=== PATIENT | male | born 1940 | race Caucasian/White ===

== ENCOUNTER 2019-12-19 07:48 | Outpatient (CLI) | payer MEDICARE, OTHER, SELFPAY ==
--- NOTE | 2019-12-19 08:13 | XR_ITS ---
WS: [id number] PROCEDURE: XR chest 2V* [id number] CLINICAL INFORMATION: CHRONIC BRONCHITIS/HYPERTENSION/HYPERLIPIDEMIA COMPARISON: June 15, 2018 FINDINGS: Heart: Normal cardiac silhouette. Sternotomy. Mediastinal clips. Tortuous thoracic aorta. Lungs: Moderate chronic emphysematous changes. Slight subsegmental atelectasis left lower lobe. No fo carlos pneumonia. Bones: Osteopenia. XR/XR chest 2V* [id number] IMPRESSION: 1. Moderate chronic emphysematous changes. Subsegmental atelectasis left lower lobe. 2. Sternotomy with mediastinal clips. 3. No acute chest findings.
== END 2019-12-19 07:49 | disposition home or self-care (01) ==
LOC: RAD 07:55
PROVIDERS: PCP Electrodiagnostic Medicine; Visit Provider Electrodiagnostic Medicine
DX: J42 Unspecified chronic bronchitis (principal); E11.51 Type 2 diabetes mellitus with diabetic peripheral angiopathy without gangrene; I10 Essential (primary) hypertension; E78.5 Hyperlipidemia, unspecified; J98.11 Atelectasis
CPT/HCPCS: 71046

== ENCOUNTER → 2022-12-22 11:28 | Outpatient (BNVA) | payer OTHER, SELFPAY | PROVIDERS: PCP Electrodiagnostic Medicine; Visit Provider Nurse Practitioner Family | DX: R05.9 Cough, unspecified (principal) | CPT/HCPCS: 87400 ==

== ENCOUNTER 2023-03-22 09:26 | Emergency (ER) | payer MEDICARE, OTHER, SELFPAY ==
[2023-03-22 09:46] VITALS: BP 156/82; PULSE 98; RESP 12; TEMP 36.4; O2SAT 95; BMI 23.6
[2023-03-22 10:08] VITALS: BP 117/76; PULSE 90; RESP 18; O2SAT 94
--- NOTE | 2023-03-22 10:49 | XRR_ITS ---
PROCEDURE INFORMATION: Exam: XR Ribs Exam date and time: 03/22/2023 11:03 AM Age: 83 years old Clinical indication: Chest wall pain and painful respiration; Right; Patient HX: RT anterior chest/rib pain post fall TECHNIQUE: Imaging protocol: Radiologic exam of the of the ribs. Views: 3 views. Bilateral ribs. COMPARISON: CR XR chest 2V* [id number] 12/19/2019 8:17 AM FINDINGS: Bones/joints: No fracture or malalignment. Soft tissues: No displaced rib fractures. XR/XR ribs BI 3V* [id number] IMPRESSION: No acute findings.
--- NOTE | 2023-03-22 10:49 | XRR_ITS ---
PROCEDURE INFORMATION: Exam: XR Right Hip Exam date and time: 03/22/2023 10:52 AM Age: 83 years old Clinical indication: Injury or trauma; Other: RT hip pain post fall; Patient HX: RT shoulder pain post fall; Additional info: RT shoulder sind. Pain post fall TECHNIQUE: Imaging protocol: Radiologic exam of the right hip. Views: 1 view hip with pelvis when performed. COMPARISON: CR XR sacrum coccyx min 2V [id number] 04/18/2022 8:01 AM FINDINGS: Bones/joints: No fracture or dislocation. Moderate right hip degenerative changes. Soft tissues: No acute findings. XR/XR hip RT 2-3V wo/w pel* [id number] IMPRESSION: Moderate right hip degenerative changes. No fracture.
--- NOTE | 2023-03-22 11:52 | PC.PHAR ---
pt states he takes care of his own medications-pt states he uses lantus solostar 50 units in the am and 5 units hs-pt states [facility] are both out of trulicity 1.5mg pt states he has one pen left and was trying to save it-
[2023-03-22 12:11] VITALS: BP 128/69; PULSE 84; RESP 18; O2SAT 97
[2023-03-22 13:22] VITALS: BP 121/70; PULSE 78; O2SAT 97
--- NOTE | 2023-03-22 14:08 | W.ED.FALL ---
HPI - Fall General: Chief Complaint: Fall Stated Complaint: abd pains Time Seen by Provider: 03/22/23 10:05 History of Present Illness: This patient is an 83-year-old white male who presents to the emergency department complaining of pain over the lateral aspect of the right hip and some mild pain to the right rib cage. Patient states he was at a bowling tournament in [facility] last night. He tripped over a step while he was there. States he was able to finish bowling after the accident. He did strike his head but did not lose consciousness. He is not on any blood thinners. No headache or neck pain. Review of Systems General: Reports: 10 or more systems reviewed and unremarkable except in HPI and below PFSH ED PFSH: Medical History Myocardial infarction ASHD (arteriosclerotic heart disease) HTN (hypertension) Surgical History S/P CABG (coronary artery bypass graft) Family History Father Diabetes Other CAD (coronary artery disease) Social History Smoking and tobacco/nicotine status: never used tobacco/nicotine Alcohol intake: never Substance/Drug Use: never Household members: spouse Marital status: Current occupational status: retired Physical Exam Const: COMMON NORMALS: no acute distress, patient oriented x3 and no limitations GENERAL APPEARANCE: cooperative and comfortable HENMT: COMMON NORMALS: normocephalic, atraumatic, Normal nasal mucous membranes and turbinates present, moist oral mucous membranes and oropharynx normal HEAD & SCALP: normal to inspection, normocephalic and atraumatic FACE & SINUS: normal facial exam NOSE: Normal nasal mucous membranes and turbinates present Eye: COMMON NORMALS: Equal, round and reactive pupils present, EOMs intact bilaterally and conjunctivae normal GENERAL EYE: appearance normal, both eyes and all related structures CONJUNCTIVA: Yes conjunctivae normal PUPIL: Yes Equal, round and reactive pupils present Neck/C-Spine: COMMON NORMALS: supple and no JVD Chest: CHEST: Yes tenderness (Right lower lateral) Resp: COMMON NORMALS: normal respiratory effort and clear to auscultation bilaterally AUSCULTATION: clear to auscultation bilaterally Cardio: COMMON NORMALS: no JVD, regular rate, regular rhythm, No gallops present (Cardio), No murmurs present (Cardio) and No rub (Cardio) RATE: regular rate RHYTHM: regular rhythm GI: COMMON NORMALS: Normal to inspection, nondistended, normoactive bowel sounds present, Soft to palpation and non-tender AUSCULTATION: Yes normoactive bowel sounds PALPATION: Yes Soft to palpation : COMMON NORMALS: Yes no CVA tenderness BLADDER/KIDNEY EXAM: Yes no CVA tenderness Back/Pelvis: COMMON NORMALS: no CVA tenderness and thoracic and lumbar spine normal to inspection Extremity: NARRATIVE EXTREMITY EXAM: Full range of motion of the right hip with no significant discomfort. Some tenderness to palpation over the right greater trochanter. Neuro: COMMON NORMALS: patient oriented x3 and CN's II-XII intact bilaterally Psych: COMMON NORMALS: mental status grossly normal, Normal thought process present and cooperative THOUGHT PROCESS: Normal thought process present Skin: COMMON NORMALS: no rashes or lesions noted, turgor normal and no jaundice GENERAL SKIN EXAM: no rashes or lesions noted and turgor normal Course Vital Signs: Vital signs: Vital Signs Temperature 97.6 F 03/22/23 09:46 Pulse Rate 78 03/22/23 13:22 Respiratory Rate 18 03/22/23 12:11 Blood Pressure 121/70 03/22/23 13:22 Pulse Oximetry 97 03/22/23 13:22 Oxygen Delivery Me thod Room Air 03/22/23 12:11 MDM - Fall Medical Decision Making X-rays of the right hip were read by the radiologist as normal. The chest x-ray and rib films were also read by the radiologist as normal. Patient states ibuprofen has been sufficient for handling his pain. Recommended he continue that. Follow-up with his primary care physician as needed. Was discharged in stable condition. Lab Data Radiology Impressions Hip/Pelvis X-Ray 03/22/23 10:49 IMPRESSION: Moderate right hip degenerative changes. No fracture. Ribs X-Ray 03/22/23 10:49 IMPRESSION: No acute findings. All radiology interpretation(s) finalized by discharge Discharge Plan Discharge Patient Disposition: Home Clinical Impression: Contusion of hip and thigh Qualifiers: Encounter type: initial encounter Laterality: right Qualified Code(s): S70.01XA - Contusion of right hip, initial encounter Condition: Stable Prescriptions: No Action atorvastatin 40 mg tablet 40 mg PO QAM tamsulosin 0.4 mg capsule 0.4 mg PO QAM multivitamin Tablet 1 tab PO QAM Aspir-81 81 mg Tablet,Delayed Release (Dr/Ec) 81 mg PO QAM Lantus Solostar U-100 Insulin 100 unit/mL (3 mL) insulin pen See Rx Instructions .ROUTE .COMPLEX Rx Instructions: 50 units subcutaneously in the am and 5 units at bedtime Trulicity 1.5 mg/0.5 mL Pen Injector 1.5 mg SUBCUT Q7D Rx Instructions: on lisinopril 20 mg tablet 20 mg PO QAM Discharge Orders: Discharge ED (Routine); Ordered 03/22/23 Ordered By: Jean Carlos Nixon Referrals: Fran Monroe DO [Primary Care Provider] - 1 week Patient Instructions: Pain Management Coding Level of Care Code ED Shop Repairer for Man Freire
== END 2023-03-22 13:22 | disposition home or self-care (01) ==
PROVIDERS: Emergency Provider Emergency Medicine; PCP Electrodiagnostic Medicine
DX: S70.01XA Contusion of right hip, initial encounter (principal); Z79.82 Long term (current) use of aspirin; Z79.85 Long-term (current) use of injectable non-insulin antidiabetic drugs; Z79.4 Long term (current) use of insulin; I25.2 Old myocardial infarction; I10 Essential (primary) hypertension; Z95.1 Presence of aortocoronary bypass graft; W22.8XXA Striking against or struck by other objects, initial encounter
CPT/HCPCS: 71110; 73502; 99284

== ENCOUNTER 2023-08-03 08:52 | Outpatient (RCR) | payer MEDICARE, OTHER, SELFPAY | END 2023-08-09 23:59 | disposition home or self-care (01) | LOC: SPT 08:52 | PROVIDERS: PCP Electrodiagnostic Medicine; Visit Provider Electrodiagnostic Medicine | DX: M54.50 Low back pain, unspecified (principal) | CPT/HCPCS: 97110; 97161; 97530 ==

== ENCOUNTER 2023-08-06 09:03 | Emergency (ER) | payer MEDICARE, OTHER, SELFPAY ==
[2023-08-06 09:09] VITALS: BP 183/127; PULSE 91; RESP 16; TEMP 36.4; O2SAT 97; BMI 25.3
--- NOTE | 2023-08-06 09:12 | CT_ITS ---
WS: [id number] CT HEAD TECHNIQUE: Noncontrast CT of the head obtained from the skullbase to the vertex. CLINICAL INFORMATION: trauma COMPARISON: 2019 DLP: 1037.[address] scans at [facility] use at least one of these dose optimization techniques: automated e xposure control; mA and/or kV adjustment per patient size (includes targeted exams where dose is matc hed to clinical indication); or iterative reconstruction. FINDINGS: No evidence of intracranial hemorrhage or mass effect. Ventricular system and basal cisterns are lopez nt. Moderate small vessel changes with moderate parenchymal volume loss. A few tiny chronic lacunar i nfarcts RIGHT basal ganglia. Incidental RIGHT middle cranial fossa arachnoid cyst unchanged. This elin sures approximately 2.5 x 2.5 cm. Partially visualized paranasal sinuses are well aerated. Mastoid air cells are well aerated. RIGHT fr ontal scalp laceration. CT/CT head wo con* [id number] IMPRESSION: 1. No evidence of intracranial hemorrhage or mass effect. 2. Moderate small vessel changes. Moderate parenchymal volume 3. Incidental arachnoid cyst RIGHT middle cranial fossa unchanged. 4. RIGHT frontal scalp laceration. No visualized calvarial fracture. 5. Vascular calcification. 6. No acute intracranial findings.
--- NOTE | 2023-08-06 09:12 | XR_ITS ---
WS: [id number] Exam: XR cervical spine 3V* [id number] Date/Time of Exam: 08/06/2023 9:23 AM Reason For Exam: trauma No obvious fracture identified. The lower endplate of C7 is obscured. Degenerative disc changes from C5-C7 and spondylosis. Straightening and reversal of the normal cervical C curve. The odontoid is int act. Paraspinal soft tissues are unremarkable. Bilateral carotid artery calcifications. XR/XR cervical spine 3V* [id number] IMPRESSION: 1. No acute fracture or malalignment. Nonvisualization of the lower endplate of C7. 2. Moderate degenerative changes from C5-C7 as above.
[2023-08-06] MEDS: ceFAZolin 1,000 MG in sodium chloride 0.9% (plus) 50 ML 100 MG IV (09:30)
--- NOTE | 2023-08-06 09:38 | XR_ITS ---
WS: [id number] Exam: XR knee LT 3V* [id number] Date/Time of Exam: 08/06/2023 9:38 AM Reason For Exam: trauma No fracture or dislocation. Mild tricompartmental DJD. No joint effusion. XR/XR knee LT 3V* [id number] IMPRESSION: 1. Mild tricompartmental DJD. No other significant finding.
--- NOTE | 2023-08-06 09:39 | ED_ITS ---
HPI - Wound/Laceration 2 General: Chief Complaint: Wound/Laceration Stated Complaint: fall, head wound Time Seen by Provider: 08/06/23 09:05 Source: patient Mode of arrival: ambulatory History of Present Illness: 83-year-old male presents emergency room with laceration on the scalp. Patient went out to feed his cats evidently the neighbors dog came over he had a mechanical ground-level fall while on the porch he hit his head on the railing of the porch as he went down. There was no loss consciousness he is not on anticoagulants he denies neck pain he is a little bit of left knee pain is abrasion on his left knee he has a very large scalp laceration on the left side of his head. He denies any other injury was ambulatory after the incident without loss of consciousness. Associated symptoms: Denies chills or fever(s) Review of Systems 2 Const: Denies: fever(s) or chills Card: Denies: chest pain Resp: Denies: dyspnea GI: Denies: abdominal pain : Denies: dysuria, urinary frequency or urinary urgency Musc: Denies: neck pain or back pain Skin/Breast: Denies: rash PFSH ED 2 PFSH: Medical History Myocardial infarction ASHD (arteriosclerotic heart disease) HTN (hypertension) Surgical History S/P CABG (coronary artery bypass graft) Family History Father Diabetes Other CAD (coronary artery disease) Social History Smoking and tobacco/nicotine status: never used tobacco/nicotine Alcohol intake: never Substance/Drug Use: never Household members: spouse Marital status: Current occupational status: retired Physical Exam 2 Const: GENERAL APPEARANCE: cooperative ORIENTATION/CONSCIOUSNESS: Yes awake, Yes oriented to person, Yes oriented to place and Yes oriented to time HENMT: COMMON NORMALS: normocephalic, atraumatic and hearing grossly normal bilaterally HEAD & SCALP: normocephalic and atraumatic FACE & SINUS IMAGES: 1. 12 cm full-thickness laceration EAR IMAGES: 1. Partial-thickness laceration Resp: COMMON NORMALS: normal respiratory effort, No retractions, No use of accessory muscles and clear to auscultation bilaterally AUSCULTATION: clear to auscultation bilaterally Cardio: COMMON NORMALS: regular rate, regular rhythm and No murmurs present (Cardio) RATE: regular rate RHYTHM: regular rhythm GI: COMMON NORMALS: Soft to palpation and No hepatosplenomegaly present A USCULTATION: Yes normoactive bowel sounds PALPATION: Yes Soft to palpation, No Tenderness to palpation present (GI), No Guarding due to palpation present (GI) and Yes No hepatosplenomegaly present Extremity: COMMON NORMALS: normal to inspection, capillary refill normal, no clubbing, cyanosis or edema, no calf tenderness and no pedal edema Neuro: SENSORIUM/ORIENTATION: Yes oriented to person, Yes oriented to place and Yes oriented to time Skin: COMMON NORMALS: no rashes or lesions noted GENERAL SKIN EXAM: no rashes or lesions noted Procedures Laceration Laceration 1: Site: scalp Size (cm): 12 Description: linear Local Anesthetic: lidocaine 1% and with epi Amount of anesthesia used (mL): 6 Pre-repair: wound explored and irrigated extensively Skin layer closed with: nylon Size (cm): 3-0 Number of sutures: 1 Technique: running Laceration 2: Site: other (R ear - outer helix) Side (If applicable): right Size (cm): 2.5 Description: linear and clean Skin layer closed with: other (Steri-Strips) Course 2 Vital Signs: Vital signs: Vital Signs Temperature 97.5 F L 08/06/23 09:09 Pulse Rate 96 08/06/23 11:27 Respiratory Rate 16 08/06/23 09:09 Blood Pressure 148/78 08/06/23 11:27 Pulse Oximetry 98 08/06/23 11:27 Oxygen Delivery Me thod Room Air 08/06/23 09:09 MDM - Wound/Laceration Medical Decision Making Labs and imaging reviewed no acute findings. Sutures close of the above the ear laceration was only partial-thickness was Steri-Stripped. The scalp laceration was 12 cm in length after anesthesia locally was closed with a running locking suture with 3-0 nylon patient had good anesthesia good cosmesis approximation of tissue and hemostasis. Wound care instructions given sutures removed in primary care office in 5 to 7 days. Lab Data Radiology Impressions Cervical Spine X-Ray 08/06/23 09:12 IMPRESSION: 1. No acute fracture or malalignment. Nonvisualization of the lower endplate of C7. 2. Moderate degenerative changes from C5-C7 as above. Head CT 08/06/23 09:12 IMPRESSION: 1. No evidence of intracranial hemorrhage or mass effect. 2. Moderate small vessel changes. Moderate parenchymal volume 3. Incidental arachnoid cyst RIGHT middle cranial fossa unchanged. 4. RIGHT frontal scalp laceration. No visualized calvarial fracture. 5. Vascular calcification. 6. No acute intracranial findings. Knee X-Ray 08/06/23 09:38 IMPRESSION: 1. Mild tricompartmental DJD. No other significant finding. All radiology interpretation(s) finalized by discharge Discharge Plan Discharge Patient Disposition: Home Clinical Impression: Laceration of head, Fall, Laceration of auricle of right ear Condition: Stable Prescriptions: New cephalexin 750 mg capsule 750 mg PO BID 5 Days Qty: 10 0RF No Action atorvastatin 40 mg tablet 40 mg PO QAM tamsulosin 0.4 mg capsule 0.4 mg PO QAM multivitamin Tablet 1 tab PO QAM Aspir-81 81 mg Tablet,Delayed Release (Dr/Ec) 81 mg PO QAM Lantus Solostar U-100 Insulin 100 unit/mL (3 mL) insulin pen See Rx Instructions .ROUTE .COMPLEX Rx Instructions: 50 units subcutaneously in the am and 5 units at bedtime Trulicity 1.5 mg/0.5 mL Pen Injector 1.5 mg SUBCUT Q7D Rx Instructions: on lisinopril 20 mg tablet 20 mg PO QAM Discharge Orders: Discharge ED (Routine); Ordered 08/06/23 Ordered By: Ron Mckeon Referrals: Fran Monroe DO [Primary Care Provider] - Discharge Diet: Usual diet Discharge Activity: Increase activity as tolerated Patient Instructions: Scalp Laceration, Opioid Safety, Pain Management Activity Restrictions/Additional Instructions: Thank you for choosing [facility] for your healthcare needs today. It is very important that you follow up as instructed or that you return to the Emergency Department should you have concerns or if your condition changes or worsens in any way. You were seen today for a fall. CT and x-rays did not show any acute abnormalities. Due to the large laceration on your scalp which was closed with sutures and a small laceration on your right ear which was closed with Steri- Strips Steri-Strips will fall off on their own over the next several days. The laceration in the scalp was closed with sutures which need to be removed in approximately 7 days. Apply topical [id number] Vaseline-based antibiotic ointment to the scalp laceration once daily. You are given antibiotics take 1 pill twice a day for 5 days. Coding Level of Care Code ED Lastex Operator for Man Freire
--- NOTE | 2023-08-06 09:59 | PC.NURSE ---
this nurse cleaned pts laceration with sterile water irrigation. no foreign objects/debris noted to wound/ small laceration noted to R ear, bleeding controlled at this time.
[2023-08-06] MEDS: tetanus-dipt-pertussis 0.5 mL SDV IM (10:38)
[2023-08-06 11:27] VITALS: BP 148/78; PULSE 96; O2SAT 98
== END 2023-08-06 11:28 | disposition home or self-care (01) ==
PROVIDERS: Emergency Provider Family Medicine; PCP Electrodiagnostic Medicine
DX: S01.01XA Laceration without foreign body of scalp, initial encounter (principal); S01.311A Laceration without foreign body of right ear, initial encounter; Z79.82 Long term (current) use of aspirin; Z79.4 Long term (current) use of insulin; Z79.85 Long-term (current) use of injectable non-insulin antidiabetic drugs; I25.2 Old myocardial infarction; I10 Essential (primary) hypertension; W18.39XA Other fall on same level, initial encounter; Z23 Encounter for immunization
CPT/HCPCS: 12004; 70450; 72040; 73562; 90715; 96365; 99285; J0690

== ENCOUNTER 2023-08-10 06:00 | Outpatient (RCR) | payer MEDICARE, OTHER, SELFPAY | END 2023-09-09 23:59 | disposition home or self-care (01) | LOC: SPT 06:00 | PROVIDERS: PCP Electrodiagnostic Medicine; Visit Provider Electrodiagnostic Medicine | DX: M54.50 Low back pain, unspecified (principal) | CPT/HCPCS: 97110; 97530 ==

== ENCOUNTER → 2023-10-15 09:10 | Outpatient (BNVA) | payer MEDICARE, OTHER, SELFPAY | PROVIDERS: PCP Electrodiagnostic Medicine; Visit Provider Internal Medicine | DX: I49.9 Cardiac arrhythmia, unspecified (principal); I10 Essential (primary) hypertension; I47.19 Other supraventricular tachycardia; I49.1 Atrial premature depolarization; I49.3 Ventricular premature depolarization | CPT/HCPCS: 93242 ==

== ENCOUNTER → 2023-12-17 14:14 | Outpatient (BNVA) | payer MEDICARE, OTHER, SELFPAY | PROVIDERS: PCP Electrodiagnostic Medicine; Referring Provider Electrodiagnostic Medicine; Visit Provider Internal Medicine Cardiovascular Disease | DX: I25.10 Atherosclerotic heart disease of native coronary artery without angina pectoris (principal); I10 Essential (primary) hypertension; I77.9 Disorder of arteries and arterioles, unspecified; I47.20 Ventricular tachycardia, unspecified; I87.2 Venous insufficiency (chronic) (peripheral) | CPT/HCPCS: 99204 ==

== ENCOUNTER 2024-01-25 07:17 | Outpatient (CLI) | payer MEDICARE, OTHER, SELFPAY ==
--- NOTE | 2024-01-25 | ECG_ITS ---
[facility] Test Date: 2024-01-25 Pat Name: Pedro Pablo Berg Department: Room: Gender: Male Restoration Officer: : 1940 Requested By: Luke Evangelista Order Number: [id number] Storm MD: LUKE EVANGELISTA Interpretive Statements Lung unchanged pre/post procedure; Intraprocedure shortess of breath; Symptoms resoled by discharge NOTE: Please note that this is the electrocardiogram portion of the Lexiscan/Sestamibi stress test. The perfusion scan will be documented separately. DATA: Baseline heart rate was 63 beats per minute. Baseline blood pressure was 160/80 millimeters of mercury. Target heart rate was 135. Maximum heart rate achieved was 98. which was 72% of the predicted target heart rate. Maximum blood pressure was 161/86 millimeters of mercury. The reason for ending the test was completion of the protocol . The patient intra-procedure shortness of breath which was resolved at the time of discharge ELECTROCARDIOGRAM: BASELINE: Sinus rhythm. Normal axis. Otherwise, no ST-T changes suggestive of ischemia noted. No arrhythmia noted. After Lexiscan injection, significant inferolateral ST-T changes suggestive of ischemic noted. No arrhythmia noted. 1. EKG is suggestive of ischemia 2. Lexiscan injection unremarkable. 3. Perfusion scan will be documented separately. Electronically Signed On 02-19-2024 13:35:43 ATTENDANT HONOR BAR by LUKE EVANGELISTA [email or web address]
[2024-01-25 07:56] VITALS: BMI 25.3
--- NOTE | 2024-01-25 08:00 | NMCV_ITS ---
NM soledad perf SPECT r/s* [id number] Pedro Pablo Berg Age: 83 Gender: M : 1940 Exam Date: 01/25/2024 08:57 Ordering Phys: Luke Evangelista MD ([email or web address]) Technologist: ELVIA Meléndez Exam Location: [facility] Indications: cp STRESS TEST [facility] IMAGE PROTOCOL Rest/Stress 1 Lexiscan Day Radiopharmaceutical Dose (mCi) Administration Site Administered by Rest: Tc-99m 10.9 IV Tari Mack BUSINESS CONTINUITY GLOBAL DIRECTOR Sestamibi Stress:Tc-99m 32.5 IV Tari Mack, BUSINESS CONTINUITY GLOBAL DIRECTOR Sestamibi Rest: 25-Jan-2024 60 Discovery 630 Stress: 25-Jan-2024 30 Discovery 630 0.4mg Lexiscan. Supine position only as patient was unable to lay prone. SPECT RESULTS Technical Quality: Good Raw Data Analysis: Normal Image Corrections: No attenuation or motion correction applied Summed Stress Score: 0 Summed Rest Score: 0 Summed Difference Score: 0 PERFUSION FINDINGS SPECT images demonstrate homogeneous tracer distribution throughout the myocardium. FUNCTIONAL RESULTS (calculated via Gated SPECT) Stress Image LV EF (%): 74 Stress EDV (mL):98 TID: 1.33 Stress ESV (mL):25 FUNCTIONAL FINDINGS: There is normal left ventricular systolic function. IMPRESSIONS 1. Normal myocardial perfusion imaging with no evidence of ischemia 2. LV systolic function is normal Christopher Meza MD (Electronically Signed) Final Date: 25 January 2024 20:30 S
[2024-01-25] MEDS: regadenoson 0.4 Mg/5 ml Syringe IVP (09:22)
[2024-01-25 09:38] VITALS: BP 160/66; PULSE 82
--- NOTE | 2024-01-25 10:33 | USCV_ITS ---
Pedro Pablo Berg Age: 83 Gender: M : 1940 Exam Date: 01/25/2024 10:39 Ordering Phys: Luke Evangelista MD ([email or web address]) Technologist: [place] [facility] [place]ication: sob BP: 146 / 78 HR: 64 Rhythm: Sinus Technical Quality: Adequate MEASUREMENTS (Male / Female) Normal Values 2D ECHO LVOT Diameter 2.2 cm LV Ejection Fraction MOD 4C 50.2 % LV Ejection Fraction MOD 2C 66.5 % LV Ejection Fraction 2C AL 66.6 % LA Diameter 3.6 cm RA Systolic Volume 4C AL 67.0 ml RA Systolic Volume 4C MOD 63.7 ml LA Sys Volume AL 54.7 cm cubed LA Sys Volume Index AL 25.7 cm cubed/m squared Aorta at Sinotubular Diameter 2.8 cm M-MODE LA Ao Ratio MM 1.3 AV Cusp Separation MM 2.2 cm DOPPLER AV Peak Velocity 133.0 cm/s LVOT Peak Velocity 97.0 cm/s AV Area Cont Eq vti 2.9 cm squared AV Area Cont Eq pk 2.7 cm squared MV Peak Velocity 95.0 cm/s MV Area PHT 2.4 cm squared Mitral E to A Ratio 0.8 TV Peak Velocity 191.5 cm/s TR Peak Velocity 227.0 cm/s TR Peak Gradient 20.6 mmHg TV Peak E Velocity 85.0 cm/s PV Peak Velocity 134.5 cm/s FINDINGS Left Ventricle Normal left ventricular size, systolic function and wall thickness, with no regional wall motion abnormalities. Left ventricular ejection fraction is estimated at 55 %. Grade I/IV diastolic dysfunction (abnormal relaxation filling pattern), normal to mildly elevated filling pressures. Right Ventricle The right ventricle is normal in size and function. Right Atrium The right atrium is normal in size. Left Atrium Moderately increased left atrial size. Mitral Valve Thickened mitral valve. No mitral valve stenosis. Moderate mitral valve regurgitation. Aortic Valve Moderate aortic valve calcification. No aortic valve stenosis. Trace aortic valve regurgitation. Tricuspid Valve Trace tricuspid valve regurgitation. Pulmonic Valve Structurally normal pulmonic valve without significant stenosis. There is no pulmonic regurgitation. Pericardium Normal pericardium without effusion. Aorta Normal ascending aorta dimension. IVC The inferior vena cava appears normal. CONCLUSIONS Normal left ventricular size, systolic function and wall thickness, with no regional wall motion abnormalities. Left ventricular ejection fraction is estimated at 55 %. Grade I/IV diastolic dysfunction (abnormal relaxation filling pattern), normal to mildly elevated filling pressures. Moderately increased left atrial size. Moderate aortic valve calcification. No aortic valve stenosis. Trace aortic valve regurgitation. There is no pericardial effusion. Right atrial pressure is around 5 mm of mercury. Luke Evangelista MD (Electronically Signed) Final Date: 25 January 2024 21:52 S
== END 2024-01-25 07:18 | disposition home or self-care (01) ==
LOC: CDL 07:19
PROVIDERS: PCP Electrodiagnostic Medicine; Visit Provider Internal Medicine Cardiovascular Disease
DX: I50.30 Unspecified diastolic (congestive) heart failure (principal); R07.9 Chest pain, unspecified; R06.02 Shortness of breath; I51.7 Cardiomegaly; I35.0 Nonrheumatic aortic (valve) stenosis
CPT/HCPCS: 36415; 78452; 93017; 93306; 96374; A9500; J2785

== ENCOUNTER 2024-05-12 10:18 | Emergency (ER) | payer MEDICARE, OTHER, SELFPAY ==
[2024-05-12] VITALS (8 sets, daily range): BP systolic 115–151; BP diastolic 69–82; PULSE 88–104; RESP 18–22; TEMP 37.6; O2SAT 90–94; BMI 25.3
--- NOTE | 2024-05-12 10:26 | ECG_ITS ---
[email or web address] Test Date: 2024-05-12 Pat Name: Pedro Pablo Berg Department: Room: Gender: Male Immigration Manager: : 1940 Requested By: Jarad Sanchez Order Number: [id number] Storm MD: Christopher Meza M.D. Measurements Intervals [place] Rate: 101 P: 13 RI: 189 QRS: -5 QRSD: 88 T: 35 QT: 320 QTc: 416 Interpretive Statements SINUS TACHYCARDIA NONSPECIFIC ST & T-WAVE ABNORMALITY ABNORMAL RHYTHM ECG Compared to ECG 06/15/2018 09:53:54 Sinus rhythm no longer present T-wave abnormality still present Electronically Signed On 05-12-2024 17:34:03 CDT by Christopher Meza M.D. [email or web address]
--- NOTE | 2024-05-12 10:28 | XR_ITS ---
WS: [id number] XR chest 1V portable [id number] REASON FOR EXAM: Cough congestion FINDINGS: Chest is unchanged compared to 03/22/2023. Previous coronary artery bypass surgery. Moderate to significant tortuosity and ectasia of the thoracic aorta with normal heart size. Calcified granulomatous disease bilaterally. No acute pulmonary parenchymal or pleural abnormality. Moderate degenerative spondylosis in the mid and lower thoracic spine. XR/XR chest 1V portable [id number] IMPRESSION: Stable chest without acute abnormality.
[2024-05-12 11:15] LABS: Influenza A NEGATIVE (Negative); Influenza B NEGATIVE (Negative); Respiratory Syncytial Virus Ce NEGATIVE (Negative); SARS-CoV-2 PCR NEGATIVE (Negative)
--- NOTE | 2024-05-12 11:26 | W.ED.URI ---
HPI - URI/Sore Throat General: Chief Complaint: Upper Respiratory Infection Stated Complaint: coughing, weakness Time Seen by Provider: 05/12/24 10:20 History of Present Illness: 84-year-old male presents emergency room complaining of chest pain primarily with coughing. No chest pain while at rest. He does get a little short of breath. He has not had a productive cough. No fever no hemoptysis no history of any PE. In January 2024 patient had a normal Lexiscan sestamibi stress test. Initial EKG unchanged from his baseline EKG at the time of his stress testing Associated symptoms: Deny abdominal pain, chills, chest pain or fever(s) Related Data Home Medications ?Medication ?Instructions ?Recorded ?Confirmed aspirin 81 mg tablet,delayed 81 mg PO QAM 03/22/23 05/12/24 release dulaglutide 1.5 mg/0.5 mL 1.5 mg SUBCUT Q7D 03/22/23 05/12/24 subcutaneous pen injector (Trulicity) insulin glargine 100 unit/mL (3 See Rx Instructions .Route .COMPLEX 03/22/23 05/12/24 mL) subcutaneous pen (Lantus Solostar U-100 Insulin) multivitamin 1 tab PO QAM 03/22/23 05/12/24 empagliflozin 10 mg tablet 10 mg PO DAILY 05/12/24 05/12/24 (Jardiance) hydrocortisone acetate 25 mg 25 mg UT DAILY PRN swelling/ pain 05/12/24 05/12/24 rectal suppository (Anusol-HC) Previous Rx's ?Medication ?Instructions ?Recorded atorvastatin 40 mg tablet 40 mg PO QAM #90 tabs 12/17/23 valsartan 320 mg tablet 320 mg PO DAILY #90 tabs 02/09/24 amlodipine 10 mg tablet 10 mg PO DAILY #90 tabs 04/01/24 carvedilol 12.5 mg tablet 12.5 mg PO BID #180 tabs 04/25/24 doxycycline hyclate 100 mg capsule 100 mg PO BID 10 days #20 caps 05/12/24 Allergies Allergy/AdvReac Type Severity Reaction Status Date / Time No Known Allergies Allergy Verified 01/25/24 08:25 Review of Systems Const: Denies: fever(s) or chills Card: Denies: chest pain Resp: Denies: dyspnea GI: Denies: abdominal pain : Denies: dysuria, urinary frequency or urinary urgency Musc: Denies: neck pain or back pain Skin/Breast: Denies: rash PFSH ED PFSH: Medical History Myocardial infarction ASHD (arteriosclerotic heart disease) HTN (hypertension) Surgical History S/P CABG (coronary artery bypass graft) Family History Father Diabetes Other CAD (coronary artery disease) Social History Smoking and tobacco/nicotine status: tobacco/nicotine user, details unknown Alcohol intake: never Substance/Drug Use: never Household members: spouse Marital status: Current occupational status: retired Physical Exam Const: GENERAL APPEARANCE: cooperative ORIENTATION/CONSCIOUSNESS: Yes awake, Yes oriented to person, Yes oriented to place and Yes oriented to time HENMT: COMMON NORMALS: normocephalic, atraumatic and hearing grossly normal bilaterally HEAD & SCALP: normocephalic and atraumatic Resp: COMMON NORMALS: normal respiratory effort, No retractions and No use of accessory muscles AUSCULTATION: rhonchi Cardio: COMMON NORMALS: regular rate, regular rhythm and No murmurs present (Cardio) RATE: regular rate RHYTHM: regular rhythm GI: COMMON NORMALS: Soft to palpation and No hepatosplenomegaly present AUSCULTATION: Yes normoactive bowel sounds PALPATION: Yes Soft to palpation, No Tenderness to palpation present (GI), No Guarding due to palpation present (GI) and Yes No hepatosplenomegaly present Extremity: COMMON NORMALS: normal to inspection, capillary refill normal, no clubbing, cyanosis or edema, no calf tenderness and no pedal edema Neuro: SENSORIUM/ORIENTATION: Yes oriented to person, Yes oriented to place and Yes oriented to time Skin: COMMON NORMALS: no rashes or lesions noted GENERAL SKIN EXAM: no rashes or lesions noted Course Vital Signs: Vital signs: Vital Signs Temperature 99.6 F 05/12/24 10:20 Pulse Rate 88 05/12/24 14:56 Respiratory Rate 18 05/12/24 14:56 Blood Pressure 115/70 05/12/24 14:56 Pulse Oximetry 94 05/12/24 14:56 Oxygen Delivery Me thod Room Air 05/12/24 14:00 MDM - URI/Sore Throat Medical Decision Making Will start on doxycycline. Patient has a mildly elevated white count. Urine shows signs of infection but he is not having any urinary tract symptoms will wait until culture shows adjust antibiotic if appropriate. Medical Records I reviewed the patient's medical records. Lab Data I reviewed the patient's lab results. 05/12/24 11:38 05/12/24 11:38 Radiology Impressions Chest X-Ray 05/12/24 10:28 IMPRESSION: Stable chest without acute abnormality. Laboratory Results WBC 13.13 10^3/uL (3.29-11.43) H 05/12/24 11:38 RBC 5.18 10^6/uL (3.85-5.65) 05/12/24 11:38 Hgb 14.90 g/dL (11.27-16.99) 05/12/24 11:38 Hct 47.4 % (37-53) 05/12/24 11:38 MCV 91.5 fl (82-101) 05/12/24 11:38 MCH 28.8 pg (27-33) 05/12/24 11:38 MCHC 31.4 g/dL (30-55) 05/12/24 11:38 RDW 13.2 % (12.1-15.1) 05/12/24 11:38 Plt Count 267 10^3/cmm (157-399) 05/12/24 11:38 MPV 11.3 fL (7.4-10.4) H 05/12/24 11:38 Neut % (Auto) 86.2 % 05/12/24 11:38 Lymph % (Auto) 5.6 % 05/12/24 11:38 Nobles % (Auto) 7.0 % 05/12/24 11:38 Eos % (Auto) 0.5 % 05/12/24 11:38 Baso % (Auto) 0.2 % 05/12/24 11:38 Neut # (Auto) 11.31 10^3/uL (1.8-7.7) H 05/12/24 11:38 Lymph # (Auto) 0.7 10^3/uL (0.8-4.8) L 05/12/24 11:38 Nobles # (Auto) 0.9 10^3/uL (0.2-0.9) 05/12/24 11:38 Eos # (Auto) 0.1 10^3/uL (0.0-0.8) 05/12/24 11:38 Baso # (Auto) 0.0 10^3/uL (0.0-0.1) 05/12/24 11:38 Nucleated RBC % (auto) 0 % 05/12/24 11:38 Nucleated RBCs # 0.0 /100WBC 05/12/24 11:38 Specimen Type Arterial 05/12/24 11:25 Sample Site Radial, left 05/12/24 11:25 ABG pH 7.43 (7.35-7.45) 05/12/24 11:25 ABG pCO2 37.8 mmHg (35-45) 05/12/24 11:25 ABG pO2 50.4 mmHg (80.0-100.0) L 05/12/24 11:25 ABG PO2/FiO2 Ratio 240 05/12/24 11:25 ABG HCO3 25.1 mmol/L (22-26) 05/12/24 11:25 ABG O2 Saturation 88.3 05/12/24 11:25 ABG Base Excess 0.9 mmol/L (-2.0-2.0) 05/12/24 11:25 Roderick Test Pos 05/12/24 11:25 A-a O2 Gradient 6.9 mmHg (5-10) 05/12/24 11:25 Hematocrit 44.5 % (42-52) 05/12/24 11:25 Hgb O2 Saturation 86.1 % (95-100) L 05/12/24 11:25 Carboxyhemoglobin 1.3 %THgb (0.4-20.1) 05/12/24 11:25 Methemoglobin 1.2 % (0.4-1.5) 05/12/24 11:25 Total Hemoglobin 14.5 g/dL (14-18) 05/12/24 11:25 Sodium 143.0 mmol/L (131-143) 05/12/24 11:25 Potassium 3.9 mmol/L (3.5-5.0) 05/12/24 11:25 Glucose 195.0 mg/dL (70-115) H 05/12/24 11:25 Ionized Calcium 1.2 mmol/L (1.1-1.4) 05/12/24 11:25 O2 Delivery Device Room air 05/12/24 11:25 FiO2 21.0 % 05/12/24 11:25 Carbon Blocks Press Operator ID Walci 05/12/24 11:25 Sodium 141 mmol/L (136-145) 05/12/24 11:38 Potassium 4.2 mmol/L (3.5-5.1) 05/12/24 11:38 Chloride 103 mmol/L (98-107) 05/12/24 11:38 Carbon Dioxide 26 mmol/L (22-29) 05/12/24 11:38 Anion Gap 16.2 (5-19) 05/12/24 11:38 BUN 22 mg/dL (8-23) 05/12/24 11:38 Creatinine 1.2 mg/dL (0.7-1.2) 05/12/24 11:38 GFR Calculation Not Reportable 05/12/24 11:38 Glucose 185 mg/dL (65-115) H 05/12/24 11:38 Calculated Osmolality 300 mOsm/kg (285-295) H 05/12/24 11:38 Lactic Acid 1.4 mmol/L (0.5-2.2) 05/12/24 11:38 Calcium 8.8 mg/dL (8.5-10.5) 05/12/24 11:38 Total Bilirubin 0.5 mg/dL (0.15-1.2) 05/12/24 11:38 AST 13 U/L (0-40) 05/12/24 11:38 ALT 13 U/L (0-41) 05/12/24 11:38 Alkaline Phosphatase 94 U/L (40-130) 05/12/24 11:38 Total Protein 7.3 g/dL (6.6-8.7) 05/12/24 11:38 Albumin 4.0 g/dL (3.5-5.2) 05/12/24 11:38 Globulin 3.3 g/dL (1.3-4.6) 05/12/24 11:38 Urine Color Yellow (Yellow) 05/12/24 14:32 Urine Appearance Slightly cloudy (CLEAR) 05/12/24 14:32 Urine pH 5 (5-7) 05/12/24 14:32 Ur Specific [place] 1.020 (1.005-1.030) 05/12/24 14:32 Urine Protein Trace (Negative) 05/12/24 14:32 Urine Glucose (UA) 4+ (Normal) H 05/12/24 14:32 Urine Ketones 1+ (Negative) H 05/12/24 14:32 Urine Blood 2+ (Negative) H 05/12/24 14:32 Urine Nitrate Negative (Negative) 05/12/24 14:32 Urine Bilirubin Neg (Negative) 05/12/24 14:32 Urine Urobilinogen Norm mg/dL (Negative) 05/12/24 14:32 Ur Leukocyte Esterase 2+ (Negative) H 05/12/24 14:32 Urine RBC 0-4 /hpf (0-2) H 05/12/24 14:32 Urine WBC 5-10 /hpf (0-5) H 05/12/24 14:32 Ur Squamous Epith Cells 0-4 /hpf (0-5) H 05/12/24 14:32 Amorphous Sediment Not Reportable 05/12/24 14:32 Urine Bacteria 1+ /hpf (NONE) H 05/12/24 14:32 Influenza A (PCR) Negative (Negative) 05/12/24 10:30 Influenza Type B (PCR) Negative (Negative) 05/12/24 10:30 RSV (PCR) Negative (Negative) 05/12/24 10:30 SARS-CoV-2 (PCR) Negative (Negative) 05/12/24 10:30 All radiology interpretation(s) finalized by discharge Discharge Plan Discharge Patient Disposition: Home Clinical Impression: Upper respiratory infection Condition: Stable Prescriptions: New doxycycline hyclate 100 mg capsule 100 mg PO BID 10 Days Qty: 20 0RF No Action atorvastatin 40 mg tablet 40 mg PO QAM Qty: 90 3RF valsartan 320 mg tablet 320 mg PO DAILY Qty: 90 3RF amlodipine 10 mg tablet 10 mg PO DAILY Qty: 90 3RF carvedilol 12.5 mg tablet 12.5 mg PO BID Qty: 180 3RF Rx Instructions: must administer with a meal/food multivitamin Tablet 1 tab PO QAM aspirin [Aspir-81] 81 mg Tablet,Delayed Release (Dr/Ec) 81 mg PO QAM insulin glargine [Lantus Solostar U-100 Insulin] 100 unit/mL (3 mL) insulin pen See Rx Instructions .ROUTE .COMPLEX Rx Instructions: Inject 50 units subcutaneously in the am. Trulicity 1.5 mg/0.5 mL Pen Injector 1.5 mg SUBCUT Q7D Rx Instructions: Thursday hydrocortisone acetate [Anusol-HC] 25 mg suppository 25 mg UT DAILY PRN (Reason: swelling/ pain) Jardiance 10 mg tablet 10 mg PO DAILY Discharge Orders: Discharge ED (Routine); Ordered 05/12/24 Ordered By: Ron Mckeon Referrals: Fran Monroe, DO [Primary Care Provider] - Discharge Diet: Usual diet Discharge Activity: Increase activity as tolerated Patient Instructions: Opioid Safety, Pain Management Activity Restrictions/Additional Instructions: Thank you for choosing [facility] for your healthcare needs today. It is very important that you follow up as instructed or that you return to the Emergency Department should you have concerns or if your condition changes or worsens in any way. You were seen in the emergency room with complaints of cough and shortness of breath. Flu COVID and RSV are negative chest x-ray did not show any acute changes EKG is unchanged from previous. Reviewed stress test you had in January 2024 this was normal. Recommend starting you on oral antibiotics 1 pill twice a day for 10 days. Recheck if you are having any change or worsening of symptoms Print Language: Rwandan Coding Level of Care Code ED Front Facer for Man Freire
--- NOTE | 2024-05-12 11:29 | PC.PHAR ---
Pt no longer taking Plavix 75mg last fill 11/16/23 90ds.
[2024-05-12 11:36] LABS: ABG PCO2 37.8 mmHg (35-45); ABG PH Result 7.43 (7.35-7.45); Alveolar-Arterial Oxygen Gradi 6.9 mmHg (5-10); Arterial Blood Gas Hematocrit 44.5 % (42-52); Base Excess ABG 0.9 mmol/L (-2.0-2.0); Blood Gas Allen Test Pos; Blood Gas Operator Identificat WALCI; Blood Gas Sample Site Radial, left; Blood Gas Sample Type Arterial; Carboxyhemoglobin 1.3 %THgb (0.4-20.1); HCO3 ABG 25.1 mmol/L (22-26); HGB O2 Sat 86.1 % (95-100); Ionized Calcium Level - ABG 1.2 mmol/L (1.1-1.4); Methemoglobin 1.2 % (0.4-1.5); Oxygen Device ROOM AIR; Oxygen Saturation ABG 88.3; PO2 ABG 50.4 mmHg (80.0-100.0); PO2 FiO2 Ratio Arterial Blood 240; Potassium Level - ABG 3.9 mmol/L (3.5-5.0); Total Hemoglobin 14.5 g/dL (14-18)
[2024-05-12 11:50] LABS: Basophils % 0.2 %; Eosinophils # 0.1 10^3/uL (0.0-0.8); Eosinophils % 0.5 %; Hematocrit 47.4 % (37-53); Lymphocytes # 0.7 10^3/uL (0.8-4.8); Lymphocytes % 5.6 %; Mean Corpuscular HGB Conc 31.4 g/dL (30-55); Mean Corpuscular Hemoglobin 28.8 pg (27-33); Mean Corpuscular Volume 91.5 fl (82-101); Mean Platelet Volume 11.3 fL (7.4-10.4); Monocytes # 0.9 10^3/uL (0.2-0.9); Neutrophils # 11.31 10^3/uL (1.8-7.7); Neutrophils % 86.2 %; Nucleated Red Blood Cells % 0 %; Platelet Count 267 10^3/cmm (157-399); Red Blood Count 5.18 10^6/uL (3.85-5.65); Red Cell Distribution Width 13.2 % (12.1-15.1); White Blood Count 13.13 10^3/uL (3.29-11.43)
[2024-05-12 12:08] LABS: Alanine Aminotransferase 13 U/L (0-41); Alkaline Phosphatase 94 U/L (40-130); Anion Gap 16.2 (5-19); Aspartate Amino Transferase 13 U/L (0-40); Blood Urea Nitrogen 22 mg/dL (8-23); Calcium 8.8 mg/dL (8.5-10.5); Carbon Dioxide 26 mmol/L (22-29); Chloride 103 mmol/L (98-107); Globulin 3.3 g/dL (1.3-4.6); Glucose 185 mg/dL (65-115); Osmolality Calculated 300 mOsm/kg (285-295); Potassium 4.2 mmol/L (3.5-5.1); Sodium 141 mmol/L (136-145); Total Bilirubin 0.5 mg/dL (0.15-1.2); Total Protein 7.3 g/dL (6.6-8.7)
[2024-05-12 12:09] LABS: Lactic Sepsis W/Reflex 1.4 mmol/L (0.5-2.2)
[2024-05-12 14:45] LABS: Protein Urine Trace (Negative); Urine Appearance Slightly Cloudy (CLEAR); Urine Color Yellow (Yellow); pH Urine 5 (5-7)
[2024-05-12 14:46] LABS: Bilirubin Urine Neg (Negative); Blood Urine 2+ (Negative); Glucose Urine UA 4+ (Normal); Ketones Urine 1+ (Negative); Leukocyte Esterase Urine 2+ (Negative); Nitrate Urine Negative (Negative); Urobilinogen Urine Norm (Negative)
[2024-05-12 15:17] LABS: Add Urine Microscopic? YES; Bacteria Urine 1+ /hpf; RBC Urine 0-4 /hpf (0-2); Squamous Epithelial Cell Urine 0-4 /hpf (0-5); UA Manual Slide Review YES; UA Slide Review UA Slide Review Perf
--- NOTE | 2024-05-13 14:26 | PC.NURSE ---
pt called to confirmed he received his antibiotic called in after discharge.
== END 2024-05-12 14:56 | disposition home or self-care (01) ==
PROVIDERS: Emergency Medicine; Emergency Provider Family Medicine; PCP Electrodiagnostic Medicine
DX: J06.9 Acute upper respiratory infection, unspecified (principal); Z11.52 Encounter for screening for COVID-19; Z79.82 Long term (current) use of aspirin; Z79.4 Long term (current) use of insulin; Z79.85 Long-term (current) use of injectable non-insulin antidiabetic drugs; I10 Essential (primary) hypertension
CPT/HCPCS: 36415; 36600; 51798; 71045; 80051; 80053; 81001; 82330; 82805; 83605; 85025; 87040; 87637; 93005; 99285

== ENCOUNTER → 2024-06-14 12:10 | Outpatient (BNVA) | payer MEDICARE, OTHER, SELFPAY | PROVIDERS: PCP Electrodiagnostic Medicine; Visit Provider Internal Medicine Cardiovascular Disease | DX: I10 Essential (primary) hypertension (principal); I25.10 Atherosclerotic heart disease of native coronary artery without angina pectoris; Z79.82 Long term (current) use of aspirin; Z95.1 Presence of aortocoronary bypass graft; I25.2 Old myocardial infarction | CPT/HCPCS: 99214 ==

== ENCOUNTER 2024-11-15 16:02 | Inpatient (IN) | payer MEDICARE, OTHER, SELFPAY ==
--- OUTSIDE RECORDS SUMMARY | 2024-06-22 07:30 | XMS_ITS ---
Author Organization [facility] Address [address] [facility] [place] [address] Care Team Providers Care Interventionist Name Role Phone Fran Monroe DO Primary Care Provider Unavail able Amy Carbone Unavailable [phone] Gallito Infante Unavailable [phone] REASON FOR VISIT ABIs Encounters Encounter Location Date Provider Diagnosis [facility] [address] [place] [address] 06/22/2024 Gallito Infante Plan Of Treatment Next Appt Details Provider Name:Stuart masters, 12/22/2024 12:45:00 PM, [address] [place] [address] [address], [place], [address], Provider Name:Amy dias, 12/22/2024 01:15:00 PM, [address] [place] [address] [address], [place], [address], Progress Notes * Pedro Pablo MCGRAW HDOB:07/1940 (84 yo M)Acc No.[id number]:06/22/2024 Patient: Pedro Pablo Charles Provider: Denise Infante MD :1940 A ge:84 Y S ex:Male Date:06/22/2024 Address:[address] [id number] Pcp:Fran Monroe DO Subjective: * Chief Complaints: * A BIs Billing Information: * Procedure Codes: * Electronic signature of Gallito Infante MD on 11/15/2024 at 04:08 PM CDT Sign off status: Pending * Provider: Denise Infante MD Date: 0 06/22/2024 Generated for Felice lozano/Davian/Megan on: 1 04:08 PM CDT
--- OUTSIDE RECORDS SUMMARY | 2024-06-22 07:30 | XMS_ITS ---
Author Organization [facility] Address [address] [place] [address] Care Team Providers Care Hazard Waste Handler Name Role Phone Fran Monroe DO Primary Care Provider Unavail able Amy Carbone Unavailable [phone] Gallito Infante Unavailable [phone] REASON FOR VISIT ABIs Encounters Encounter Location Date Provider Diagnosis [facility] [address] [place] [address] 06/22/2024 Gallito Infante Plan Of Treatment Next Appt Details Provider Name:Stuart masters, 12/22/2024 12:45:00 PM, [address] [place] [address] [address] [place], [place], [address], Provider Name:Amy dias, 12/22/2024 01:15:00 PM, [address] [place] [address] [address], [place], [address], Progress Notes * Pedro Pablo MCGRAW HDOB:07/1940 (84 yo M)Acc No.[id number]:06/22/2024 Patient: Pedro Pablo Charles Provider: Denise Infante MD :1940 A ge:84 Y S ex:Male Date:06/22/2024 Address:[address] [id number] Pcp:Fran Monroe DO Subjective: * Chief Complaints: * A BIs Billing Information: * Procedure Codes: * Electronic signature of Gallito Infante MD on 11/16/2024 at 06:54 AM CDT Sign off status: Pending * Provider: Denise Infante MD Date: 0 06/22/2024 Generated for Felice lozano/Davian/Megan on: 1 06:54 AM CDT
[2024-11-15] VITALS (8 sets, daily range): BP systolic 103–151; BP diastolic 55–79; PULSE 66–92; RESP 16–29; TEMP 36.7–36.9; O2SAT 91–96; BMI 25.0; BMI 26.2
--- NOTE | 2024-11-15 16:05 | CTR_ITS ---
PROCEDURE INFORMATION: Exam: CT Head Without Contrast Exam date and time: 11/15/2024 4:02 PM Age: 84 years old Clinical indication: Stroke-like symptoms; RT upper extremity and lt upper extremity weakness; Additional info: Symptoms of acute stroke TECHNIQUE: Imaging protocol: Computed tomography of the head without contrast. Radiation optimization: All CT scans at this facility use at least one of these dose optimization techniques: automated exposure control; mA and/or kV adjustment per patient size (includes targeted exams where dose is matched to clinical indication); or iterative reconstruction. Other technique: STROKE PROTOCOL was implemented. COMPARISON: CT head wo con* [id number] 08/06/2023 9:24 AM RADIATION DOSE METRICS: Total DLP (mGy-cm): 1041.68 FINDINGS: Brain:. No hemorrhage. Periventricular white matter lucency represents atherosclerotic encephalopathic changes. No mass effect. Cerebral ventricles: No ventriculomegaly. Ventricular prominence disproportionate to the degree of atrophy observed. Paranasal sinuses: Visualized sinuses are unremarkable. No fluid levels. Mastoid air cells: Visualized mastoid air cells are well aerated. Bones: Unremarkable. No acute fracture. Soft tissues: Unremarkable. CT/CT head thrombolytic [id number] IMPRESSION: No acute intracranial abnormality. ASSESSMENT: ASPECTS ([place] Stroke Program Early CT Score) is 10.
--- NOTE | 2024-11-15 16:05 | ECG_ITS ---
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 Measurements Intervals Stow Rate: 65 P: 84 FL: 196 QRS: -15 QRSD: 86 T: 53 QT: 395 QTc: 411 Interpretive Statements SINUS RHYTHM WITH Supraventricular ectopics Compared to ECG 05/12/2024 10:30:49 Sinus tachycardia no longer present T-wave abnormality no longer present Electronically Signed On 11-15-2024 23:48:58 CDT by Jax Stephen M.D. [email or web address]
--- NOTE | 2024-11-15 16:07 | CTR_ITS ---
PROCEDURE INFORMATION: Exam: CTA Head With Contrast, Arteriography Exam date and time: 11/15/2024 4:09 PM Age: 84 years old Clinical indication: Weakness; Additional info: Stroke protocol TECHNIQUE: Imaging protocol: Computed tomographic angiography of the head with contrast. Exam focused on the arteries. 3D rendering (Not supervised by radiologist): MIP and/or 3D reconstructed images were created by the technologist. Radiation optimization: All CT scans at this facility use at least one of these dose optimization techniques: automated exposure control; mA and/or kV adjustment per patient size (includes targeted exams where dose is matched to clinical indication); or iterative reconstruction. Contrast material: OMNIPAQUE 350; Contrast volume: 100 ml; Contrast route: INTRAVENOUS (IV); COMPARISON: CT head thrombolytic [id number] 11/15/2024 4:02 PM RADIATION DOSE METRICS: Total DLP (mGy-cm): 476.38 FINDINGS: ANTERIOR CIRCULATION: Right internal carotid artery: Intracranial segment is patent with no significant stenosis. No aneurysm. Right middle cerebral artery: No occlusion or significant stenosis. No aneurysm. Right anterior cerebral artery: No occlusion or significant stenosis. No aneurysm. Left internal carotid artery: There is a focal 70% stenosis involving the left carotid siphon. Left middle cerebral artery: No occlusion or significant stenosis. No aneurysm. Left anterior cerebral artery: No occlusion or significant stenosis. No aneurysm. POSTERIOR CIRCULATION: Right vertebral artery: No occlusion or significant stenosis. No aneurysm. Left vertebral artery: No occlusion or significant stenosis. No aneurysm. Basilar artery: No occlusion or significant stenosis. No aneurysm. Right posterior cerebral artery: No occlusion or significant stenosis. No aneurysm. Left posterior cerebral artery: There is a focal severe stenosis involving the P1 segment of the left posterior cerebral artery. Brain: No definite mass, mass effect, or midline shift. Cerebral ventricles: No ventriculomegaly. Bones/joints: Unremarkable. No acute fracture. Soft tissues: Unremarkable. PROCEDURE INFORMATION: Exam: CTA Neck With Contrast Exam date and time: 11/15/2024 4:09 PM Age: 84 years old Clinical indication: Weakness; Additional info: Stroke protocol TECHNIQUE: Imaging protocol: Computed tomographic angiography of the neck with contrast. Exam focused on the cervical segments of the vasculature. 3D rendering (Not supervised by radiologist): MIP and/or 3D reconstructed images were created by the technologist. Radiation optimization: All CT scans at this facility use at least one of these dose optimization techniques: automated exposure control; mA and/or kV adjustment per patient size (includes targeted exams where dose is matched to clinical indication); or iterative reconstruction. Contrast material: OMNIPAQUE 350; Contrast volume: 100 ml; Contrast route: INTRAVENOUS (IV); COMPARISON: CR XR cervical spine 3V* [id number] 08/06/2023 9:35 AM RADIATION DOSE METRICS: Total DLP (mGy-cm): 476.38 FINDINGS: Right common carotid artery: No stenosis. No dissection or occlusion. Right internal carotid artery: No stenosis of the extracranial segment. No dissection or occlusion. Right external carotid artery: No occlusion or stenosis of the origin. Left common carotid artery: No stenosis. No dissection or occlusion. Left internal carotid artery: No stenosis of the extracranial segment. No dissection or occlusion. Left external carotid artery: No occlusion or stenosis of the origin. Right vertebral artery: No stenosis. No dissection or occlusion. Left vertebral artery: There is occlusion involving the distal aspect of the left vertebral artery. The occlusion extends to the basilar artery but the basilar artery is widely patent. Soft tissues: Normal. No significant soft tissue swelling. Bones/joints: No acute fracture. CT/CT angio headneck* [id number] IMPRESSION: 1. Left CERTIFIED ADAPTED PHYSICAL EDUCATOR stenosis 2. 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 This may be acute REFERENCES: NASCET CRITERIA. The degree of stenosis in the cervical segment of the internal carotid artery is based on NASCET criteria. Normal is no stenosis. Mild is less than 50% stenosis. Moderate is 50-69% stenosis. Severe is 70% to 99% stenosis. Total occlusion is no detectable patent lumen.
--- OUTSIDE RECORDS SUMMARY | 2024-11-15 16:08 | XMS_ITS | Patient Health Record ---
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 Name Role Phone Fran Monroe DO Primary Care Provider Tanner Lopez Jr [phone] Allergies No Known Allergies Reason For Referral No Information Social History Tobacco Use: Social History Observation Description Date Details (start date - stop date) Never Smoker NA - NA Tobacco Control (Standard) Question Answer Notes Tobacco use: Nonsmoker Additional Findings: Tobacco non-user Current no nsmoker Problems Problem Type SNOMED Code ICD Code Onset Dates Problem Status W/U Status Risk Notes Problem Diabetic peripheral neuropathy associated with type 2 diabetes mellitus (0888883881994) Type 2 diabetes mellitus with diabetic neuropathy, unspecified whether terminal make up operator insulin use (E11.40) Active confirmed Problem Pressure injury of toe of left foot (63050438287170 1) Pressure injury of skin of left foot, unspecified injury stage (L89.899) Active confirmed Vital Signs Respiratory Rate 22 /min 10/19/2024 Height 73 in 10/19/2024 Weight 169 lbs 10/19/2024 BMI 22.29 kg/m2 10/19/2024 Encounters Encounter Location Date Provider Diagnosis [facility] [address] [place] [address], [place] [id number] 12/23/2023 Tanner Morrow Jr Type 2 diabetes mellitus with diabetic neuropathy, unspecified whether terminal make up operator insulin use E11.40 ; Corns/callosities L84 ; Tinea unguium B35.1 ; Pain in left toe(s) M79.675 and Pain in right toe(s) M79.674 [facility] [address] [place] [address], [place] [id number] 03/02/2024 Tanner Morrow Jr Type 2 diabetes mellitus with diabetic neuropathy, unspecified whether terminal make up operator insulin use E11.40 ; Corns/callosities L84 ; Tinea unguium B35.1 ; Pain in left toe(s) M79.675 and Pain in right toe(s) M79.674 [facility] [address] [place] [address], [place] [id number] 05/11/2024 Tanner Morrow Jr Type 2 diabetes mellitus with diabetic neuropathy, unspecified whether terminal make up operator insulin use E11.40 ; Corns/callosities L84 ; Tinea unguium B35.1 ; Pain in left toe(s) M79.675 and Pain in right toe(s) M79.674 [facility] [address] [place] [address], [place] [id number] 08/04/2024 Tanner Morrow Jr Type 2 diabetes mellitus with diabetic neuropathy, unspecified whether long-term insulin use E11.40 ; Corns/callosities L84 ; Tinea unguium B35.1 ; Pain in left toe(s) M79.675 and Pain in right toe(s) M79.674 [facility] [address] [place] [address], [place] [id number] 10/19/2024 Tanner Morrow Jr Type 2 diabetes mellitus with diabetic neuropathy, unspecified whether long-term insulin use E11.40 ; Corns/callosities L84 ; Tinea unguium B35.1 ; Pain in left toe(s) M79.675 and Pain in right toe(s) M79.674 Assessments Encounter Date Diagnosis (ICD Code) Assessment Notes Treatment Notes Treatment Clinical Notes Section Notes 12/23/2023 Type 2 diabetes mellitus with diabetic neuropathy, unspecified whether terminal make up operator insulin use (ICD-10 - E11.40) 12/23/2023 Corns/callositie s (ICD-10 - L84) 03/02/2024 Type 2 diabetes mellitus with diabetic neuropathy, unspecified whether long-term insulin use (ICD-10 - E11.40) 03/02/2024 Corns/callositie s (ICD-10 - L84) 05/11/2024 Type 2 diabetes mellitus with diabetic neuropathy, unspecified whether long-term insulin use (ICD-10 - E11.40) 05/11/2024 Corns/callositie s (ICD-10 - L84) 08/04/2024 Type 2 diabetes mellitus with diabetic neuropathy, unspecified whether long-term insulin use (ICD-10 - E11.40) 08/04/2024 Corns/callositie s (ICD-10 - L84) Paring of 2 lesions performed on both feet with a #15 blade. Again discussed padding and offloading and DM shoes and inserts. 10/19/2024 Type 2 diabetes mellitus with diabetic neuropathy, unspecified whether long-term insulin use (ICD-10 - E11.40) 10/19/2024 Corns/callositie s (ICD-10 - L84) Paring of 4 lesions performed with a #15 blade. Again discussed padding and offloading and DM shoes and inserts. 10/19/2024 Tinea unguium (ICD-10 - B35.1) Discussed diabetic foot care, routine foot care, and terminal make up operator blood sugar control. Debridement of nails 1 through 5 bilateral down 2mm as close to normal thickness as possible using mechanical and manual means. Again advised the patient on preventative care. Patient to apply topical antifungals to the nails. 08/04/2024 Tinea unguium (ICD-10 - B35.1) Discussed diabetic foot care, routine foot care, and long-term blood sugar control. Debridement of nails 1 through 5 bilateral down 2mm as close to normal thickness as possible using mechanical and manual means. Again advised the patient on preventative care. Patient to apply topical antifungals to the nails. 05/11/2024 Tinea unguium (ICD-10 - B35.1) Discussed diabetic foot care, routine foot care, and long-term blood sugar control. Debridement of nails 1 through 5 bilateral down 2mm as close to normal thickness as possible using mechanical and manual means. Again advised the patient on preventative care. Patient to apply topical antifungals to the nails. Paring of 2 lesions performed with a #15 blade on the 5th MPJs. Again discussed padding and offloading and DM shoes and inserts. 03/02/2024 Tinea unguium (ICD-10 - B35.1) Discussed diabetic foot care, routine foot care, and long-term blood sugar control. Debridement of nails 1 through 5 bilateral down 2mm as close to normal thickness as possible using mechanical and manual means. Again advised the patient on preventative care. Patient to apply topical antifungals to the nails. Paring of lesions performed with a #15 blade. Again discussed padding and offloading and DM shoes and inserts. Updated patient's past medical history and medications and reviewed with the patient. Discussed blood sugars in detail with the patient. 12/23/2023 Tinea unguium (ICD-10 - B35.1) Discussed diabetic foot care, routine foot care, and terminal make up operator blood sugar control. Debridement of nails 1 through 5 bilateral down 2 mm as close to normal thickness as possible using mechanical and manual means. Advised the patient on preventative care to continue to apply topical antifungals to the nails \ Paring of lesions peformed on both feet with a #15 blade discussed padding and offloading discussed DM shoes and inserts Rx for DM shoes and inserts. Patient has been diagnosed with DM with neuropathy and has a high risk of complications which necessitstes that provision of DM shoe package to prevent potentiol foot problems and promote optimal foot health DM shoe package is being recommended as a medically necessary intervention due to the patients diminished sensation to the feet, previous ulceration and pre ulcerative lesions, and the deformities of the feet. Patients with DM are at increased risk of developing foot complications including peripheral neruopathy, PAD, and foot ulcers. Proper foot wear is essenial to reduce the risks of pressure points, skin break down, and ulcer formation, which can lead to infections, amputations, and significant morbidity. 12/23/2023 Pain in left toe(s) (ICD-10 - M79.675) 03/02/2024 Pain in left toe(s) (ICD-10 - M79.675) 05/11/2024 Pain in left toe(s) (ICD-10 - M79.675) 08/04/2024 Pain in left toe(s) (ICD-10 - M79.675) 10/19/2024 Pain in left toe(s) (ICD-10 - M79.675) 08/04/2024 Pain in right toe(s) (ICD-10 - M79.674) 10/19/2024 Pain in right toe(s) (ICD-10 - M79.674) 05/11/2024 Pain in right toe(s) (ICD-10 - M79.674) 12/23/2023 Pain in right toe(s) (ICD-10 - M79.674) 03/02/2024 Pain in right toe(s) (ICD-10 - M79.674) Plan Of Treatment Next Appt Details Provider Name:Tanner HOFFMANJenniffer Molina Jr, 12/28/2024 08:15:00 AM, [address], [place], [id number], Insurance Providers Payer Name Payer Address Payer Phone Subscriber Number Group Number Insured Name Patient Relationship to Insured Coverage Start Date Coverage End Date [employer] Medicare Complete [address] [address] [place] [phone] [id number] BESSY OWENS Self - patient is the insured 3 for Life Ins [address] [place] [address] [id number] BESSY OWENS Self - patient is the insured 3 Medical (General) History Medical History History ICD Code Back Pain DIABETIC Heart Attack High Cholesterol Numbness/Tingling in feet/toes shortness of breath Surgical History Surgery Date(Month/Year) hernia heart cath Hospitalization History Reason Date(Month/Year) 20 STITCHES IN HEAD DUE TO FALL 7.1.24
--- OUTSIDE RECORDS SUMMARY | 2024-11-15 16:08 | XMS_ITS | Data Portability ---
Author Organization [facility] Address [address] [address] Care Team Providers Care Elementary Assistant Principal Name Role Phone SAMUEL CORNELL Primary Care Provider Assessment Encounter Date Assessment Date Assessment LastModified by Organization Details LastModified Time 07/05/2024 07/05/2024 pt does not need a screening colonoscopy due to age above 80. and life expectancy likely less than 5 years. counseled pt. Document scribed by Nathaniel Trivedi Process Coordinator. I was present during interview and exam. I have reviewed and agree with above documentation. Dr. Samuel Cornell. A Care Coordination Assessment form was filled out as part of this patient's office visit today. [email or web address] Not available 07/05/2024 09:49:36 08/02/2024 08/02/2024 Document scribed by Nathaniel Trivedi Process Coordinator. I was present during interview and exam. I have reviewed and agree with above documentation. Dr. Samuel Cornell. [email or web address] Not available 08/02/2024 11:02:29 Plan of Treatment Reminders Order Date Submit Date Provider Last Modified By Organization Details Last Modified Time Details Appointments RECHECK 10 2024 07:40A Jackson Cornell, DO Not available Not available Not available Lab lipid panel, blood 2024 025 [facility], [address], [facility], [place], [address], 10/11/2024 11:09:06 hemoglobi n A1C/hemog lobin total, QN, blood 2024 025 [facility], [address], [address], [place], [address], 10/11/2024 09:45:15 CMP, serum or plasma 2024 025 [facility], [address], [address], [place], [address], 10/11/2024 11:09:04 CBC 2024 025 [facility], [address], [address], [place], [address], 10/11/2024 09:45:10 hemoglobi n A1C/hemog lobin total, QN, blood 2024 025 [email or web address] [facility], [address], [address], [place], [address], 07/06/2024 07:40:02 CMP, serum or plasma [email or web address], [address], [address], [place], [address], 07/12/2024 09:40:30 CBC 2024 025 [email or web address] 7 [facility], [address], [address], [place], [address], 07/06/2024 07:40:02 hemoglobi n A1C/hemog lobin total, QN, blood 2024 025 [address] [facility], [address], [address], [place], [address], 07/12/2024 09:48:06 CMP, serum or plasma 2024 025 [facility], [address], [address], [place], [address], 07/05/2024 10:36:16 Referral None recorded. Procedures None recorded. Surgeries None recorded. Imaging None recorded. Medication Orders Lantus Solostar U-100 Insulin 100 unit/mL (3 mL) subcutane ous pen 2024 [facility], [address] [place] [address], [id number], 08/02/2024 11:10:53 amlodipin e 10 mg tablet 2024 025 [facility], [address] [place] [address], [id number], 07/05/2024 10:12:32 carvedilo l 12.5 mg tablet 2024 025 [facility], [address] [place] [address], [id number], 07/05/2024 10:12:32 Patient TargetsNo targets recorded. Patient InstructionsNo instructions recorded. Reason for Referral None Reported. Results Created Date Observation Date Name Description Value Unit Range Abnormal Flag Note LastModifiedBy Organization Detail LastModifiedTime 07/06/1907/05/2024 HBA1C hemaglobin A1C 8.4 4.2-6. 5 high Not Available [facility] [address], [place], [address], 07/05/2024 11:23:41 07/06/1907/05/2024 CBC WBC 8.0 x10 4.5-10 .5 Not Available [facility] [address], [place], [address], 07/05/2024 13:14:07 07/06/19 25 07/05/2024 CBC RBC 5.23 x10 4.30-5 .90 Not Available [facility] [address] [facility] 1, [place], [address], 07/05/2024 13:14:07 07/06/1907/05/2024 CBC HGB 15.4 g/dL 13.5-1 8.0 Not Available [facility] [address] [facility] 1, [place], [address], 07/05/2024 13:14:07 07/06/1907/05/2024 CBC HCT 47.3 % 35.0-6 0.0 Not Available [facility] [address] [facility] 1, [place], [address], 07/05/2024 13:14:07/06/1907/05/2024 CBC MCV 90.4 fL 80.0-9 9.9 Not Available [facility] [address] [facility] 1, [place], [address], 07/05/2024 13:14:07 07/06/1907/05/2024 CBC MCH 29.5 pg 27.0-3 2.0 Not Available [facility] [address] [facility] 1, [place], [address], 07/05/2024 13:14:07 07/06/1907/05/2024 CBC MCHC 32.6 g/dL 32.0-3 6.0 Not Available [facility] [address] [facility] 1, [place], [address], 07/05/2024 13:14:07 07/06/1907/05/2024 CBC RDW 14.0 % 11.5-1 4.5 Not Available [facility] [address] [facility] 1, [place], [address], 07/05/2024 13:14:07 07/06/1907/05/2024 CBC plt 250.1 x10 150.0- 451.0 Not Available [facility] [address] [address], [place], [address], 07/05/2024 13:14:07 07/06/19 25 07/05/2024 CBC lymphocytes % 20.8 % 20.0-5 0.0 Not Available [facility] [address] [address], [place], [address], 07/05/2024 13:14:07 07/06/19 25 07/05/2024 CBC granulcytes % 68.6 % 30.0-7 0.0 Not Available [facility] [address] [address], [place], [address], 07/05/2024 13:14:07 07/06/19 25 07/05/2024 CBC monocytes % 7.9 % 2.0-16 .0 Not Available [facility] [address] [address], [place], [address], 07/05/2024 13:14:07 07/06/19 25 07/05/2024 CBC granulcytes# 5.5 x10 Not Lauren ilable [facility] [address] [address], [place], [address], 07/05/2024 13:14:07 07/06/19 25 07/05/2024 CBC lymphocytes # 1.7 x10 Not Available [facility] [address] [address], [place], [address], 07/05/2024 13:14:07 07/06/1907/05/2024 CBC monocytes # 0.6 x10 Not Avai lable [facility] [address] [address], [place], [address], 07/05/2024 13:14:07 07/06/19 25 07/05/2024 CMP (MALE ) glucose 265.0 mg/dL 60.0-9 9.0 high Not Available [facility] [address] [facility], [place], [address], 07/05/2024 10:36:16 07/06/19 25 07/05/2024 CMP (MALE ) BUN (blood urea nitrogen) 23.0 mg/dL 10.0-2 6.0 Not Available [facility] [address] [facility] 1, [place], [address], 07/05/2024 10:36:16 07/06/19 25 07/05/2024 CMP (MALE ) creatinine (serum) 1.3 mg/dL 0.4-1. 5 Not Available [facility] [address] [facility] 1, [place], [address], 07/05/2024 10:36:16 07/06/19 25 07/05/2024 CMP (MALE ) BUN/creatini ne ratio 17.69 ratio Not Available [facility] [address] [facility], [place], [address], 07/05/2024 10:36:16 07/06/19 25 07/05/2024 CMP (MALE ) eGFR calculated 55.[address] [facility] [address] [facility] [address], [place], [address], 07/05/2024 10:36:16 07/06/19 25 07/05/2024 CMP (MALE ) total protein 7.0 g/dL 6.0-8. 5 Not Available [facility] [address] [facility] 1, [place], [address], 07/05/2024 10:36:16 07/06/19 25 07/05/2024 CMP (MALE ) total bilirubin 0.7 mg/dL 0.2-1. 3 Not Available [facility] [address] [facility] 1, [place], [address], 07/05/2024 10:36:16 07/06/19 25 07/05/2024 CMP (MALE ) albumin 3.8 g/dL 3.5-5. 5 Not Available [facility] [address] [facility] 1, [place], [address], 07/05/2024 10:36:16 07/06/19 25 07/05/2024 CMP (MALE ) globulin 3.2 calc Not Available [facility] [address] [facility] 1, [place], [address], 07/05/2024 10:36:16 07/06/19 25 07/05/2024 CMP (MALE ) AST (SGOT) 21.0 U/L 0.0-46 .0 Not Available [facility] [address] [facility], [place], [address], 07/05/2024 10:36:16 07/06/19 25 07/05/2024 CMP (MALE ) altv (SGPT) 13.0 U/L 13.0-6 9.0 normal Not Available [facility] [address] [facility] 1, [place], [address], 07/05/2024 10:36:16 07/06/19 25 07/05/2024 CMP (MALE ) A/G ratio 1.2 ratio Not Available [facility] [address] [facility] 1, [place], [address], 07/05/2024 10:36:16 07/06/19 25 07/05/2024 CMP (MALE ) ALP phos 95.0 U/L 30.0-1 40.0 normal Not Available [facility] [address] [facility] 1, [place], [address], 07/05/2024 10:36:16 07/06/19 25 07/05/2024 CMP (MALE ) calcium 9.4 mg/dL 8.4-10 .5 Not Available [facility] [address] [facility] [address], [place], [address], 07/05/2024 10:36:16 07/06/1907/05/2024 CMP (MALE ) sodium 138.0 mmol/ L 136.0- 145.0 Not Available [facility] [address] [facility] [address], [place], [address], 07/05/2024 10:36:16 07/06/1907/05/2024 CMP (MALE ) potassium 4.4 mmol/ L 3.5-5. 1 Not Available [facility] [address] [facility] [address], [place], [address], 07/05/2024 10:36:16 07/06/19 25 07/05/2024 CMP (MALE ) chloride 104.0 mmol/ L 98.0-1 10.0 normal Not Available [facility] [address] [facility] [address], [place], [address], 07/05/2024 10:36:16 07/06/19 25 07/05/2024 CMP (MALE ) C02 29.0 mmol/ L 22.0-3 1.0 Not Available [facility] [address] [facility] [address], [place], [address], 07/05/2024 10:36:16 07/06/19 25 07/05/2024 CMP (MALE ) anion gap 5.0 calc Not Available [facility] [address] [facility] [address], [place], [address], 07/05/2024 10:36:16 07/06/1907/05/2024 CMP (MALE ) osmolality 296.9 calc Not Available [facility] [address] [facility] [address], [place], [address], 07/05/2024 10:36:16 10/12/19 25 10/11/2024 CBC WBC 7.9 x10 4.5-10 .5 Not Available [facility] [address], [place], [address], 10/11/2024 09:45:10 10/12/1910/11/2024 CBC RBC 4.64 x10 4.30-5 .90 Not Available [facility] [address], [place], [address], 10/11/2024 09:45:10 10/12/1910/11/2024 CBC HGB 13.7 g/dL 13.5-1 8.0 Not Available [facility] [address] [facility] 1, [place], [address], 10/11/2024 09:45:10 10/12/1910/11/2024 CBC HCT 43.2 % 35.0-6 0.0 Not Available [facility] [address] [facility] 1, [place], [address], 10/11/2024 09:45:10 10/12/19 25 10/11/2024 CBC MCV 93.0 fL 80.0-9 9.9 Not Available [facility] [address] [facility] 1, [place], [address], 10/11/2024 09:45:10 10/12/1910/11/2024 CBC MCH 29.6 pg 27.0-3 2.0 Not Available [facility] [address] [facility] 1, [place], [address], 10/11/2024 09:45:10 10/12/19 25 10/11/2024 CBC MCHC 31.8 g/dL 32.0-3 6.0 low Not Available [facility] [address], [place], [address], 10/11/2024 09:45:10 10/12/1910/11/2024 CBC RDW 13.9 % 11.5-1 4.5 Not Available [facility] [address] [facility], [place], [address], 10/11/2024 09:45:10 10/12/1910/11/2024 CBC plt 266.7 x10 150.0- 451.0 Not Available [facility] [address] [facility] [address], [place], [address], 10/11/2024 09:45:10 10/12/1910/11/2024 CBC lymphocytes % 22.3 % 20.0-5 0.0 Not Available [facility] [address] [facility] [address], [place], [address], 10/11/2024 09:45:10 10/12/19 25 10/11/2024 CBC granulcytes % 66.3 % 30.0-7 0.0 Not Available [facility] [address] [facility] [address], [place], [address], 10/11/2024 09:45:10 10/12/1910/11/2024 CBC monocytes % 8.9 % 2.0-16 .0 Not Available [facility] [address] [facility] [address], [place], [address], 10/11/2024 09:45:10 10/12/19 25 10/11/2024 CBC granulcytes# 5.2 x10 Not Lauren ilable [facility] [address] [facility] 1, [place], [address], 10/11/2024 09:45:10 10/12/1910/11/2024 CBC lymphocytes # 1.8 x10 Not Available [facility] [address] [facility], [place], [address], 10/11/2024 09:45:10 10/12/1910/11/2024 CBC monocytes # 0.7 x10 Not Avai lable [facility] [address] [facility], [place], [address], 10/11/2024 09:45:10 10/12/1910/11/2024 HBA1C hemaglobin A1C 7.5 4.2-6. 5 high Not Available [facility] [address] [facility], [place], [address], 10/11/2024 09:45:15 10/12/1910/11/2024 CMP (MALE ) glucose 126.0 mg/dL 60.0-9 9.0 high Not Available [facility] [address] [facility], [place], [address], 10/11/2024 11:09:04 10/12/19 25 10/11/2024 CMP (MALE ) BUN (blood urea nitrogen) 20.0 mg/dL 10.0-2 6.0 Not Available [facility] [address] [facility], [place], [address], 10/11/2024 11:09:04 10/12/1910/11/2024 CMP (MALE ) creatinine (serum) 1.0 mg/dL 0.4-1. 5 Not Available [facility] [address] [facility], [place], [address], 10/11/2024 11:09:04 10/12/19 25 10/11/2024 CMP (MALE ) BUN/creatini ne ratio 20.00 ratio Not Available [facility] [address] [facility], [place], [address], 10/11/2024 11:09:04 10/12/1910/11/2024 CMP (MALE ) eGFR calculated 75.3 Not Available [facility] [address] [facility] 1, [place], [address], 10/11/2024 11:09:04 10/12/19 25 10/11/2024 CMP (MALE ) total protein 6.5 g/dL 6.0-8. 5 Not Available [facility] [address] [facility] 1, [place], [address], 10/11/2024 11:09:04 10/12/1910/11/2024 CMP (MALE ) total bilirubin 0.7 mg/dL 0.2-1. 3 Not Available [facility] [address] [facility] [address] [facility] 1, [place], [address], 10/11/2024 11:09:04 10/12/19 25 10/11/2024 CMP (MALE ) albumin 3.6 g/dL 3.5-5. 5 Not Available [facility] [address] [facility] 1, [place], [address], 10/11/2024 11:09:04 10/12/1910/11/2024 CMP (MALE ) globulin 2.9 calc Not Available [facility] [address] [facility], [place], [address], 10/11/2024 11:09:04 10/12/1910/11/2024 CMP (MALE ) AST (SGOT) 23.0 U/L 0.0-46 .0 Not Available [facility] [address] [facility] 1, [place], [address], 10/11/2024 11:09:04 10/12/19 25 10/11/2024 CMP (MALE ) altv (SGPT) 15.0 U/L 13.0-6 9.0 normal Not Available [facility] [place] [facility] [address] [facility] 1, [place], [address], 10/11/2024 11:09:04 10/12/19 25 10/11/2024 CMP (MALE ) A/G ratio 1.2 ratio Not Available [facility] [address] [facility] 1, [place], [address], 10/11/2024 11:09:04 10/12/19 25 10/11/2024 CMP (MALE ) ALP phos 79.0 U/L 30.0-1 40.0 normal Not Available [facility] [address] [facility] 1, [place], [address], 10/11/2024 11:09:04 10/12/19 25 10/11/2024 CMP (MALE ) calcium 9.1 mg/dL 8.4-10 .5 Not Available [facility] [address] [facility] 1, [place], [address], 10/11/2024 11:09:04 10/12/19 25 10/11/2024 CMP (MALE ) sodium 142.0 mmol/ L 136.0- 145.0 Not Available [facility] [facility] [address] [facility] 1, [place], [address], 10/11/2024 11:09:04 10/12/1910/11/2024 CMP (MALE ) potassium 4.2 mmol/ L 3.5-5. 1 Not Available [facility] [place] [facility] [address] [facility] 1, [place], [address], 10/11/2024 11:09:04 10/12/19 25 10/11/2024 CMP (MALE ) chloride 108.0 mmol/ L 98.0-1 10.0 normal Not Available [facility] [facility] [address] [facility] 1, [place], [address], 10/11/2024 11:09:04 10/12/1910/11/2024 CMP (MALE ) C02 31.0 mmol/ L 22.0-3 1.0 Not Available [facility] [facility] [address] [facility], [place], [address], 10/11/2024 11:09:04 10/12/19 25 10/11/2024 CMP (MALE ) anion gap 3.0 calc Not Available [facility] [address] [facility] 1, [place], [address], 10/11/2024 11:09:04 10/12/1910/11/2024 CMP (MALE ) osmolality 297.0 calc Not Available [facility] [facility] [address] [facility] 1, [place], [address], 10/11/2024 11:09:04 10/12/1910/11/2024 LIPID PROFI LE (MALE ) cholesterol 232.0 mg/dL 0.0-20 0.0 high Not Available [facility] [place] [facility] [address] [facility] 1, [place], [address], 10/11/2024 11:09:06 10/12/19 25 10/11/2024 LIPID PROFI LE (MALE ) trig 262.0 mg/dL 0.0-15 0.0 high Not Available [facility] [facility] [address] [facility] 1, [place], [address], 10/11/2024 11:09:06 10/12/19 25 10/11/2024 LIPID PROFI LE (MALE ) HDL - direct 28.0 mg/dL >40.0 low Not Available [facility] [address] [facility] 1, [place], [address], 10/11/2024 11:09:06 10/12/19 25 10/11/2024 LIPID PROFI LE (MALE ) VLDL - direct 52.4 mg/dL Not Available [facility] [address] [facility] [address], [place], [address], 10/11/2024 11:09:06 10/12/19 25 10/11/2024 LIPID PROFI SHARMAINE (MALE ) LDL - direct 151.6 mg/dL 0.0-13 0.0 high Not Available [facility] [address] [facility] [address], [place], [address], 10/11/2024 11:09:06 Result Notes None recorded. Problems Name Problem SNOMED Code Status Onset Date Resolution Date Notes Provider Name and Address Organization Details Recorded Time Essblake l hyperten poonam 40867722 Active 2022 Cata mercedes [facility] 5 11:22:06 Mixed hyperlip idemia 115845109 Active 2022 Cata mercedes [facility] 5 11:22:44 Cervical lymphade nopathy 383998008 Active 2022 Cata mercedes [facility] 5 11:23:12 Type 2 diabetes mellitus 93922535 Active 2022 Cata mercedes [facility] 5 11:23:05 Recurren t falls 545718578 Completed 202303/28/2024 Removal Reason: no recent falls Cata mercedes [facility] 5 11:22:59 Chronic low back pain 248748988 Active 2023 Cata mercedes [facility] 5 11:21:35 Peripher al arterial occlusiv e disease 087886824 Completed 202303/28/2024 Removal Reason: had procedure on vein Dec 2023 Cata mercedes [facility] 5 11:23:34 Marked sinus arrhythm ia 902107968 Completed 202303/28/2024 Cata mercedes [facility] 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 5 11:21:31 External hemorrho ids 16682442 Completed 202403/28/2024 Removal Reason: hx Cata mercedes [facility] 5 15:58:29 Chest pain 05081488 Completed 202403/28/2024 Removal Reason: hx Cata mercedes [facility] 5 15:58:22 Coronary atherosc lerosis 748921664 Active 2024 Cata mercedes, [facility] 5 15:58:24 Peripher al vascular disease 873970303 Active 2024 Cata mercedes, [facility] 5 15:58:30 Diastoli c heart failure 123039468 Active 2024 Cata mercedes [facility] 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 : [facility] ([facility])[address] [address] Cardiology Office Visit Report Signed Patient: Pedro Pablo Berg MR#: [id number] : 1940 Age/Sex: 84 / M ADM Date: 06/14/24 Loc: [facility] Room/Bed: Attending Dr: Luke Evangelista MD Report Number: [id number] HPI 6 mo f/u Details: 07/19/19: Reason for follow-up: #1 Coronary disease status post coronary artery bypass surgery 10 years ago #3 History of VT arrest at the time of bypass #4 Varicose veins in both leg with cramping and skin changes along with heel ulcers/lipodermatosclerosis On today's visit patient is here for follow-up. Patient denies any complaint including chest pain shortness of breath PND orthopnea. Patient denies fever chills nausea vomiting diarrhea. Current cardiovascular symptom: reports dyspnea and dyspnea on exertion 08/20/20: He is here for a 1 year follow-up. Patient is doing fine from a cardiac perspective denies any complaint including chest pain shortness of breath PND orthopnea presyncope syncope. Patient denies fever chills nausea vomiting diarrhea. Patient blood pressure not well controlled we will increase lisinopril to 20 mg the morning and 10 mg in the afternoon. 12/17/23: The patient is an 83-year-old male presenting with coronary artery disease with a history of coronary artery bypass grafting performed 14 years ago. The patient also has a history of ventricular tachycardia at the time of the bypass surgery. Recently, the patient has experienced symptoms of weakness, fatigue, and shortness of breath, but denies chest pain. These symptoms have been persistent but not associated with dizziness or syncope. There is a notable past history of chronic venous insufficiency with cramping and skin changes in both legs, as well as a history of heel ulcers and lipodermatosclerosis. The patient states that their blood pressure readings have consistently remained elevated, between 159 to 181 mmHg. Previously, an ambulatory heart monitor revealed that the upper chambers attempted to go faster approximately 14% of the time, indicating episodes of arrhythmia. No new stents have been placed since the original heart surgery, although the patient underwent vein clearance in the past. The patient reports that healthcare providers locally advised the use of a specific pharmacy for prescriptions. Interventions to date have included monitoring, as well as antihypertensive medications that include discontinued lisinopril. The patient does not report recent coronary interventions or use of statins. - Ambulatory Heart Monitoring: Noted episodes of upper chamber tachycardia approximately 14% of the time. 06/14/24: The patient is an 84-year-old male presenting with concerns of hypertension management and follow-up on a history of coronary artery disease. He underwent CABG in the past and is currently managed for hypertension and hyperlipidemia. Recent blood pressure readings were noted in the 140s, with occasional higher readings up to 154/90. He reports palpitations at night but denies chest pain, shortness of breath, swelling, fainting, or changes in urinary or bowel habits. A prior cardiac evaluation revealed a mildly leaky heart valve; however, surgery or additional medication was not deemed necessary. Allergies No Known Allergies Allergy (Verified 06/14/24 14:29) Home Medications - Last Reconciled 06/14/24 by Radha Brown LPN amlodipine 10 mg PO DAILY aspirin 81 mg PO QAM atorvastatin 40 mg PO QAM carvedilol 12.5 mg PO BID dulaglutide (Trulicity) 1.5 mg SUBCUT Q7D empagliflozin (Jardiance) 10 mg PO DAILY hydrocortisone acetate (Anusol-HC) 25 mg ID DAILY PRN insulin glargine (Lantus Solostar U-100 Insulin) Inject 50 units subcutaneously in the am. multivitamin 1 tab PO QAM valsartan 320 mg PO DAILY PFSH PFSH: Medical History Myocardial infarction ASHD (arteriosclerotic heart disease) HTN (hypertension) Surgical History S/P CABG (coronary artery bypass graft) Family History Father Diabetes Other CAD (coronary artery disease) Social History (Updated 06/14/24 @ 14:32 by Radha Brown LPN) Smoking and tobacco/nicotine status: never used tobacco/nicotine Alcohol intake: never Substance/Drug Use: never Household members: spouse Marital status: Current occupational status: retired Dietary Habits: Caffeine: Yes Review of Systems General: Reports: 10 or more systems reviewed and unremarkable except as noted in History and below Narrative: - Cardiovascular: Reports palpitations at night. Denies chest pain or shortness of breath. - Respiratory: Denies shortness of breath or nocturnal dyspnea. - Gastrointestinal: Denies blood in stool. - Genitourinary: Denies blood in urine. - Neurological: Denies fainting or syncope. - General: Denies swelling of feet. Card: Reports: lightheadedness and leg pain with exertion; Denies: chest pain, palpitations, irregular heart rhythm, edema, swelling of feet/ankles, syncope, pre-syncope, dyspnea on exertion or orthopnea Resp: Reports: productive cough; Denies: dyspnea or non-productive cough Musc: Denies: extremity pain or extremity swelling Vital Signs 12/17/23 14:32 05/12/24 10:20 06/14/24 14:27 Height 6 ft 1 in 6 ft 1 in 6 ft 1 in Weight 184 lb BMI 24.3 BP 110/72 Blood Pressure Location Lt brachial Position Sitting Respiration 18 Pulse 72 Pulse Source Pulse Oximeter Temp 97.5 F L Temp Source Temporal Artery Scan Pulse Oximetry (%) 96 Oxygen Delivery Method Room Air Physical Exam Narrative: EXAM NARRATIVE: GENERAL: Patient is alert, awake and oriented x3. HEART: Regular S1 and S2. No murmur, rub or gallop. LUNGS: Clear to auscultate bilaterally. CENTRAL NERVOUS SYSTEM: Grossly nonfocal. EXTREMITIES: Lower extremities with out edema bilaterally. Assessment & Plan Assessment & Plan (1) HTN (hypertension): Qualifiers: Hypertension type: essential hypertension Qualified Code(s): I10 - Essential (primary) hypertension Assessment & Plan: The plan is to increase carvedilol to 18.6 mg twice daily to improve blood pressure control. Regular home monitoring of blood pressure is crucial. Follow-up in six months is scheduled to reassess control and adjust treatment if necessary. (2) CAD (coronary artery disease): Assessment & Plan: The coronary artery disease is stable, and no changes are indicated. The mildly leaky valve is not causing symptoms and does not require intervention at this time. Regular monitoring is advised. Plan Patient Instructions: - Continue taking your prescribed medications as directed. - Start the increased dose of carvedilol as discussed. - Monitor your blood pressure at home and keep a log of your readings. - Report any new or worsening symptoms, such as severe dizziness, shortness of breath, or chest discomfort. - Follow up in six months as planned, or sooner if there are concerning symptoms. - Reach out if you have any questions or concerns about your medications or condition. Medications: Changed From carvedilol must administer with a meal/food 12.5 mg PO BID 180 tabs 3RF To carvedilol must administer with a meal/food 18.75 mg (1.5 x 12.5 mg) PO BID 270 tabs 3RF Cardiac Studies Cardiac Studies (HCS): Chest X-Ray 05/12/24 Holter Monitor 10/16/23 Echocardiogram Ultrasound 01/25/24 Electrocardiogram 05/12/24 Sestamibi Stress Test (Cardiology) 01/25/24 Myocardial Perfusion Scan NM 01/25/24 - Tests and Diagnostics: Stress test and echocardiogram from January of the previous year showing mildly leaky heart valve. Intake Visit Reasons: 6 mo f/u Pain scale (0-10 scale): 0 Is the reason for visit related to pain management?: No Allergies No Known Allergies Allergy (Verified 06/14/24 14:29) Home Medications Home Medications - Last Reconciled 06/14/24 by Radha Brown LPN amlodipine 10 mg PO DAILY aspirin 81 mg PO QAM atorvastatin 40 mg PO QAM carvedilol 12.5 mg PO BID dulaglutide (Trulicity) 1.5 mg SUBCUT Q7D empagliflozin (Jardiance) 10 mg PO DAILY hydrocortisone acetate (Anusol-HC) 25 mg ID DAILY PRN insulin glargine (Lantus Solostar U-100 Insulin) Inject 50 units subcutaneously in the am. multivitamin 1 tab PO QAM valsartan 320 mg PO DAILY Referred by: Samuel Cornell DO Followed by:: Samuel Cornell DO/Express mail order Annual Assessments Date Next Due Annual Assessment Dates Next Due: Date of Next Flu Assessment 06/14/25 Date of Next Abuse Assessment 06/14/25 Flu Vaccine-Yearly Date of Next Flu Assessment: 06/14/25 Annual Influenza Vaccine: Yes Abuse-Yearly Date of Next Abuse Assessment: 06/14/25 Do you observe any indication of self neglect?: No Any signs of caregiver neglect?: No Are you depressed?: No Do you wish to harm yourself or anyone else?: No Crisis hotline information provided?: Yes Quality Health Maintenance Does patient have any barriers to learning?: No Does patient have any communication needs?: Hearing aids Does patient use assistive: No Cane, No Walker, No Wheelchair, No Commode Chair, No Hospital Bed and No Respiratory Assist Device Medication Rec. Completed: Yes Cultural or Protestant Beliefs: No Date Next Due Annual Assessment Dates Next Due: Date of Next Flu Assessment 06/14/25 Date of Next Abuse Assessment 06/14/25 History of Recent Travel Any recent travel in the last 8 weeks: No Smoking/Vaping Use Screening Smoking/Vaping use assessment performed: Yes Smoking/Vaping use: never smoked Suicide Risk Assessment Have you had little interest or pleasure in last 2 weeks?: Not At All Been feeling down, depressed, or hopeless over last 2 weeks?: Not At All Have you had Suicidal thoughts?: Not At All Total Score: 0 Patient score 3 or greater or had suicidal thoughts?: Negative Depression screening performed: Yes Fall Risk Assessment 1. Have you fallen in the last year?: Yes 2. Do you use a cane, walker, wheelchair, or crutch?: No 3.Do you lose your balance, feel confused, or dizzy?: No Refuses referral to PT Coding Level of Care Code OFFICE/ OP VISIT EST LV 4 Diagnoses Essential hypertension I10 Hypertension type: essential hypertension CAD (coronary artery disease) I25.10 Additional Codes Blood Pressure - Systolic Blood Pressure: Systolic <130 (94154450) Blood Pressure - Diastolic Blood Pressure: Diastolic <80 ([id number]) Pain - Is Patient in Pain?: No ([id number]) Med Rec - Medication Rec. Completed: Yes ([id number]) BMI - BMI Value: BMI Measured (27341346) Dictated By: Luke Evangelista MD Signed By: Signed Date/Time: 06/26/24 2343 DD/ 0839 Nathaniel mercedes [facility] 07/05/2024 10:04:12 Procedures Surgical History Date Name Laterality Status Provider Name and Address Organization Details Recorded Time procedure on vein completed Cata Brown [facility] 03/28/2024 11:10:58 Imaging Results None recorded. Procedure Notes None recorded. Medical Equipment None Reported. Allergies No known drug allergies Medications Name Sig Start Date Stop Date Status Note LastModified by Organization Details LastModified Time atorvasta tin 40 mg tablet one tablet every evening active Not Available Not Available No t Available carvedilo l 6.25 mg tablet Take 1 tablet every day by oral route for 90 days. 07/05 completed Not Available Not Available Not Available doxycycli ne hyclate 100 mg capsule TAKE 1 CAPSULE BY MOUTH TWICE DAILY FOR 10 DAYS 05/23 completed Not Available Not Available Not Available carvedilo l 12.5 mg tablet Take 1.5 tablets twice a day by oral route for 90 days, for blood pressure . 2024 active Not Available Not Available Not Avai lable azithromy tamiko 250 mg tablet TAKE 2 TABLETS BY MOUTH FOR 1 DAY THEN 1 TABLET BY MOUTH ONCE DAILY FOR 4 DAYS 07/05 completed Not Available Not Available Not Available benzonata te 200 mg capsule TAKE 1 CAPSULE BY MOUTH THREE TIMES DAILY NEEDED FOR COUGH 07/05 completed Not Available Not Available Not Available lisinopri l 20 mg tablet Take 1 tablet every day by oral route. active Not Available Not Available No t Available prednison e 20 mg tablet TAKE 1 TABLET BY MOUTH EVERY DAY FOR 5 DAYS 07/05 completed Not Available Not Available Not Available clopidogr el 75 mg tablet TAKE 1 TABLET BY MOUTH ONCE DAILY active Not Available Not Available No t Available amlodipin e 5 mg tablet 03/28 completed Not Available Not Available Not Available tamsulosi n 0.4 mg capsule one capsule daily 07/05 completed Not Available Not Available Not Available amlodipin e 10 mg tablet Take 1 tablet every day by oral route at bedtime for 90 days, for blood pressure . 2024 active Not Available Not Available Not Avai lable cephalexi n 500 mg capsule TAKE 1 CAPSULE BY MOUTH THREE TIMES A DAY FOR 7 DAYS 04/13 completed Not Available Not Available Not Available lidocaine 5 % topical patch APPLY 1 PATCH DAILY FOR 21 DAYS active Not Available Not Available No t Available valsartan 320 mg tablet Take 1 tablet every day by oral route for 90 days. active Not Available Not Available No t Available diltiazem ER 60 mg capsule,e xtended release 12 hr TAKE 1 CAPSULE BY MOUTH TWICE DAILY 03/28 completed Not Available Not Available Not Available Anusol-HC 25 mg rectal supposito ry Insert 1 supposit ory twice a day by rectal route as needed for 14 days, for hemorrho id flairups . 07/05 completed Not Available Not Available Not Available valsartan 160 mg tablet 03/28 completed Not Available Not Available Not Available metoprolo l tartrate 25 mg tablet TAKE 1 TABLET BY MOUTH TWICE A DAY FOR 30 DAYS, FOR HEART AND BLOOD PRESSURE . 11/30 completed Not Available Not Available Not Available cephalexi n 750 mg capsule TAKE 1 CAPSULE BY MOUTH TWICE DAILY FOR 5 DAYS 09/02 completed Not Available Not Available Not Available Lantus Solostar U-100 Insulin 100 unit/mL (3 mL) subcutane ous pen Inject 50 units SC every AM. 2024 active only taking 50 units in the mornings none in the evening Not Available Not Available Not Available Jardiance 10 mg tablet Take 1 tablet every day by oral route in the morning for 90 days, for Diabetes .. 2024 active Not Available Not Available Not Avai lable Trulicity 1.5 mg/0.5 mL subcutane ous pen injector Inject 0.5 mL every week by subcutan eous route for 84 days. active Not Available Not Available No t Available FreeStyle Tawanda 14 Day Sensor kit USE DIRECTED AND CHANGE EVERY 14 DAYS 2024 active Not Available Not Available Not Avai lable Trulicity 3 mg/0.5 mL subcutane ous pen injector Inject 0.5 mL every week by subcutan eous route as directed for 30 days. 10/21 completed Not Available Not Available Not Available Vitals Date Recorded Body height Body mass index (BMI) Body weight Respiratory rate Heart rate Oxygen saturation Oxygen saturation in Arterial blood by Pulse oximetry Systolic And Diastolic Systolic And Diastolic Provider Name and Address Organization Details Last Updated DateTime 5 182.88 cm 24.3 kg/m2 07164.1 3 g 18 /min 85 /min 95 % 95 % 90/70 mm[Hg] 100/70 mm[Hg] Cata [facility] 5 09:44:39 Date Recorded Body height Body mass index (BMI) Body weight Oxygen saturation Oxygen saturation in Arterial blood by Pulse oximetry Heart rate Systolic And Diastolic Provider Name and Address Organization Details Last Updated DateTime 5 182.88 cm 25.1 kg/m2 67185.6 9 g 98 % 98 % 100 /min 139/89 mm[Hg] [facility] 10:59:31 Date Recorded Body height Body mass index (BMI) Body weight Oxygen saturation Oxygen saturation in Arterial blood by Pulse oximetry Heart rate Respiratory rate Systolic And Diastolic Provider Name and Address Organization Details Last Updated DateTime 5 182.88 cm 26.6 kg/m2 96251.8 g 97 % 97 % 76 /min 18 /min 138/82 mm[Hg] Cata Brown [facility] 5 12:28:06 Social History Question Answer Notes LastModified by Particle Details LastModified Time Tobacco Smoking Status Never Smoker Belgica Marcus mercedes [facility] 09/03/2023 10:55:04 What Is Your Level Of Caffeine Consumption? Heavy [email or web address] Information not available 03/28/2024 What Was The Date Of Your Most Recent Tobacco Screening? 03/28/2024 [email or web address] Information not available 03/28/2024 Has Tobacco Cessation Counseling Been Provided? No [email or web address] Information not available 06/09/2022 Sex: Unknown Functional Status Question Answer Note LastModified by Particle Details LastModified Time Do you use any illicit or recreational drugs? No Information not available 06/09/2022 Do you or have you ever used any other forms of tobacco or nicotine? No [email or web address] Information not available 06/09/2022 What is your level of alcohol consumption? None [email or web address] Information not available 09/03/2023 Mental Status None recorded. Family History Relationship Description Onset Age of this Age Resolved Age Notes LastModified by Organization Details LastModified Time Sister Diabetes mellitus [email or web address] Not available 2024 11:09:41 Father Malignant neoplasm of prostate [email or web address] Not available 2024 11:09:55 Notes:Father: Prostate Cance r Sister: Diabetes Medical History Condition Response Coronary Artery Disease N Other N Gout N Kidney Stones N Blood Diseases N Hyperthyroidism N Breast Cancer N Blood Transfusion N Hypothyroidism N Depression N COPD N Lung Disease N Defects or Inherited Disease N Developmental or Behavioral Disorders N Breast Problem N Difficulty Swallowing N Anesthesia Complications N Anxiety Disorder N Meniere's disease N Muscle, Joint, or Bone Problems Y Vision or Eye Problems N Arthritis N Polyps N Infertility N Cancer N Varicosities N Stroke N Endometriosis N Bladder or Kidney Problems N High Cholesterol Y Liver Disease N Headaches N Fibromyalgia N Kidney Disease N Allergies/Hayfever N Heart Problems N Ear or Hearing Problems N Hospitalizations N Thyroid Problems N GI Problems N ADD/ADHD N Skin Problems N Eating Disorder N Anemia N Constipation N Mental Illness N Ovarian Cancer N Diabetes Y Bedwetting N Seizures/Epilepsy N Tuberculosis N Eczema N Diverticulitis N Abuse/Domestic Violence N Asthma N Reflux/GERD N Hepatitis N Heart Disease N Pulmonary Embolism N Chronic Ear Infections N Pre-Eclampsia N Hypertension Y Chicken Pox N Autism Spectrum Disorder (ASD) N Osteoporosis N Thrombophilias N Immunizations Vaccine Type Date Status Note Provider Nam e and Address Organization Details Recorded Time Influenza, split virus, trivalent, preservative 4 completed Not Available [facility] 09/06/2022 02:51:06 COVID-19, mRNA, LNP-S, PF, 30 mcg/0.3 mL dose 1 completed Cata mercedes [facility] 07/21/2023 10:03:32 COVID-19, mRNA, LNP-S, PF, 30 mcg/0.3 mL dose 1 completed Cata mercedes [facility] 07/21/2023 10:03:32 COVID-19, mRNA, LNP-S, PF, 30 mcg/0.3 mL dose 1 completed Cata mercedes [facility] 07/21/2023 10:03:32 Tdap 4 completed Not Available [facility] 10/13/2024 10:50:06 pneumococcal, unspecified formulation 7 completed Not Available [facility] 10:50:06 Td(adult) unspecified formulation 5 completed Not Available [facility] 10/13/2024 10:50:06 Influenza, split virus, quadrivalent, PF 3 completed [facility] 17:14:09 Past Encounters Encounter ID Performer Location Encounter Start Date Encounter Closed Date Diagnosis/Indication Diagnosis SNOMED-CT Code Diagnosis ICD10 Code Diagnosis IMO Codes Diagnosis Note [id number] Samuel Cornell DO [facility] ([facility]) [address] [place] [address] [id number] 5 06/09/2022 12:06:50 07/02/2022 06:43:23 Low back pain 225657049 M54.50 chronic, improved. mild intermitte nt pain. reviewed and discussed recent l spine xray. Essential hypertension 66227584 I10 stable. continue lisinopril Mixed hyperlipidemia 267 916542 E78.2 continue atrovastat in, counseled on labs. Type 2 rodriguez betes mellitus 12603625 E11.69 A1c a little better. continue trulicity and lantus. f/u labs with appt in 3-4 mts. [id number] Samuel Cornell DO [facility] ([facility]) [address] [place] [address] [id number] 5 09/15/2022 14:42:08 09/15/2022 20:22:28 Adult health examination 330399496 Z00.00 I counseled patient on diet, exercise, weight, and mental health. We discussed appropriat e cancer screenings . All questions were addressed. We will obtain wellness labs with phone followup. Cervical lymphadenopathy 403313915 R59.0 mild, acute. will start abx. due to age and DM. counseled Type 2 rodriguez betes mellitus 58990125 E11.69 A1c a little better. continue trulicity and lantus. f/u labs with appt as scheduled in 1 mt. [id number] Samuel Cornell DO [facility] ([facility]) [address] [place] [address] [id number] 5 10/14/2022 08:01:47 10/14/2022 12:55:46 Essential hypertension 72099749 I10 stable. continue lisinopril Type 2 rodriguez betes mellitus 67941768 E11.69 pt non compliant with diet. counseled on carb intake and restaurant foods. Discussed Insulin. pt to only take twice a day. will change to 40u bid. continue trulicity. f/u 3 mts. Mixed hyperlipidemia 267 395601 E78.2 continue atorvastat in, counseled on labs. [id number] Samuel Cornell DO [facility] ([facility]) [address] [place] [address] [id number] 5 01/06/2023 08:36:31 01/07/2023 09:48:47 Type 2 diabetes mellitus 71275505 E11.69 Essential hypertension 38725471 I10 stable. continue lisinopril Mixed hyperlipidemia 267 851303 E78.2 continue atorvastat in, counseled on labs. [id number] Samuel Cornell DO [facility] ([facility]) [address] [place] [address] [id number] 5 12/24/2022 14:51:47 12/24/2022 17:22:21 COVID-19 279162819 U07.1 Pt is covid positive WITH 2 home tests. asymptomat ic here in the office today.I counseled the patient on diagnosis, treatment options, medication s, and expectatio ns. All questions were addressed. we will NOT start any paxolvid .Pt is to stay home and isolate for at least 5 days from when symptoms started, and then mask in public for an additional 5 days.They were instructed to call the office or come in for Follow Up with any questions, concerns, or worsening problems. [id number] Samuel Cornell DO [facility] ([facility]) [address] [place] [address] [id number] 5 01/13/2023 08:00:41 01/13/2023 17:27:46 Essential hypertension 39318423 I10 stable. continue lisinopril Type 2 rodriguez betes mellitus 71855467 E11.69 A1c slightly improved but still above 8. Will increase Lantus to 50 units every morning upon wakening and 40 units every evening at bedtime. Continue Trulicity. Counseled patient on low sugar diet. Active or passive immunization 741710441 Z23 I counsled pt on vaccinatio ns. pt given fluvax today as above per pt request. [id number] Samuel Cornell DO [facility] ([facility]) [address] [place] [address] [id number] 5 03/30/2023 13:09:01 03/30/2023 17:21:28 Low back pain 631372015 M54.50 chronic, improved. mild intermitte nt pain. counseled on tylenol and activity/s tretching. Mixed hyperlipidemia 267 971060 E78.2 continue atorvastat in, repeat labs next appt. Type 2 rodriguez betes mellitus 12751915 E11.69 continue Lantus to 50 units every morning and 40 units every evening at bedtime. Continue Trulicity. Counseled patient on low sugar diet.labs next appt. Essential hypertension 00957829 I10 stable. continue lisinopril Recurrent falls 88645842 2 R29.6 counseled pt. recommend using cane. Pain of ri ght hip joint 0295422981 27578 M25.551 I reviewed ER records prior to seeing the patient today. Please see hpi above and chart for detailed records.No fracture or bony injury. Symptoms much improved. Counseled on using Tylenol twice a day instead of scheduled ibuprofen. Okay to use 2 ibuprofen up to twice a day as needed. [id number] Samuel Cornell DO [facility] ([facility]) [address] [place] [address] [id number] 5 04/10/2023 09:43:20 04/13/2023 10:36:11 Essential hypertension 27717314 I10 stable. continue lisinopril Type 2 rodriguez betes mellitus 88817081 E11.69 continue Lantus to 50 units every morning and 40 units every evening at bedtime. Continue Trulicity. Counseled patient on low sugar diet.labs next appt. [id number] Samuel Cornell DO [facility] ([facility]) [address] [place] [address] [id number] 5 04/14/2023 12:04:09 04/14/2023 13:56:00 Essential hypertension 47323107 I10 stable. continue lisinopril Type 2 rodriguez betes mellitus 55070125 E11.69 04/14/23- Reviewed and discussed A1c, improved from 8.8 to 7.1, continue Lantus 50u each am, 5u at hs, pt to citrus picker Trulicity from [facility] and resume it wkly, 3mg dose. [id number] Samuel Cornell DO [facility] [id number] 5 07/21/2023 09:40:56 07/21/2023 12:05:22 Essential hypertension 39158555 I10 stable. continue lisinopril Type 2 rodriguez betes mellitus 93701714 E11.69 07/21/23- A1c improved. continue trulicity and lantus. counseled on diet. 4- Reviewed and discussed A1c, improved from 8.8 to 7.1, continue Lantus 50u each am, 5u at hs, pt to citrus picker Trulicity from [facility] and resume it wkly, 3mg dose. Chronic low back pain 27 6384522 M54.50 chronic, not improving after several falls over the winter. has done rest, home exercises, nsaids. not helping. will start PT for this and his repeated falls with unsteady gait and weak BLE. [id number] Samuel Cornell DO [facility] ([facility]) [address] [place] [address] [id number] 5 08/12/2023 15:12:37 08/12/2023 17:03:14 Type 2 diabetes mellitus 02362614 E11.69 08/12/23- Using Lantus 50u each am, cannot get Trulicity, pharmacy is out and unsure when they will get anymore.01/02- A1c improved. continue trulicity and lantus. counseled on diet. 4- Reviewed and discussed A1c, improved from 8.8 to 7.1, continue Lantus 50u each am, 5u at hs, pt to citrus picker Trulicity from [facility] and resume it wkly, 3mg dose. Scalp laceration 3689383 08 S01.01XA 08/12/23- reviewed ER records. Counseled wound is not healed enough today to remove this suture, to return 08/17/23 for removal. [id number] Samuel Cornell DO [facility] ([facility]) [address] [place] [address] [id number] 5 08/17/2023 14:43:06 08/18/2023 13:25:14 Laceration of head 895195306 S01.91XD incision healing well. sutures removed without complicati ons. Pt tolerated well. I counseled the patient on wound care including expectatio ns. We discussed signs and symptoms of worsening, infection, non healing, and other problems. Precaution s given. Patient expressed verbal understand ing. 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 Status post endovascul ar procedures in [place]. Patient is recovering well we will continue the clopidogre l.. We will continue atorvastat in and treat his diabetes. Counseled patient on exercise and signs and symptoms of recurrence of occlusion with action plan. [id number] Samuel Cornell DO [facility] [facility] [address] [place] [phone] 5 09/18/2023 09:34:45 09/18/2023 11:44:50 Abnormal heart beat [id number] R00.9 Marked sin us arrhythmia [id number] I49.8 Noted on exam and auscultati on today as well as EKG today. Rate was [address] or T abnormalit y concerning for acute [place]. Patient does not have chest pain or symptoms of acute coronary syndrome.W e will continue the patient's Plavix. No need for anticoagul ation at this time. Will start metoprolol twice daily. He will monitor for symptoms and his vitals twice a day. Follow-up with me in 7 to 10 days. Go to ER with any significan t symptoms as discussed. [id number] Samuel Cornell DO [facility] ([facility]) [address] [place] [address] [phone] 5 09/28/2023 10:33:11 09/28/2023 17:16:06 Marked sinus arrhythmia [id number] I49.8 09/28/23: heart still mildly irreg on exam. EKG today showed continued marked sinus arrhythmia . will get 7 day holter monitor and send to cardiology . continue metoprolol . 09/18/23: Noted on exam and auscultati on today as well as EKG today. Rate was [address] or T abnormalit y concerning for acute [place]. Patient does not have chest pain or symptoms of acute coronary syndrome.W e will continue the patient's Plavix. No need for anticoagul ation at this time. Will start metoprolol twice daily. He will monitor for symptoms and his vitals twice a day. Follow-up with me in 7 to 10 days. Go to ER with any significan t symptoms as discussed. Chronic lo ng term disease management required [id number] Z76.89 I counseled pt on chronic diseases. We discussed healthy diet, staying active/exe rcise. Pt is desiring further education. We will send to [employer] [place] [address] for Chronic care education and other servcies. [id number] Samuel Cornell DO [facility] ([facility]) [address] [place] [address] [phone] 5 10/20/2023 10:15:31 10/21/2023 11:09:19 Essential hypertension [id number] I10 stable. continue lisinopril Mixed hyperlipidemia 267 560321 E78.2 continue atorvastat in, repeat labs next appt. Type 2 rodriguez betes mellitus 14626185 E11.69 08/12/23- Using Lantus 50u each am, cannot get Trulicity, pharmacy is out and unsure when they will get anymore.01/02- A1c improved. continue trulicity and lantus. counseled on diet. 4- Reviewed and discussed A1c, improved from 8.8 to 7.1, continue Lantus 50u each am, 5u at , pt to citrus picker Trulicity from [facility] and resume it wkly, 3mg dose. [id number] Samuel Cornell DO [facility] ([facility]) [address] [place] [address] [phone] 5 10/22/2023 10:22:44 10/22/2023 12:09:15 Essential hypertension 14277846 I10 stable. continue lisinopril Type 2 rodriguez betes mellitus 19910418 E11.69 10/22/23- unable to get Trulicity, will order Jardiance, consider Rybelsus if unable to get Jardiance. Continue Lantus, 50u each am. Counseled on diet, being careful how many carbs he is eating at lunch.- Using Lantus 50u each am, cannot get Trulicity, pharmacy is out and unsure when they will get anymore.01/02- A1c improved. continue trulicity and lantus. counseled on diet. 4- Reviewed and discussed A1c, improved from 8.8 to 7.1, continue Lantus 50u each am, 5u at hs, pt to citrus picker Trulicity from [facility] and resume it wkly, 3mg dose. [id number] Samuel Cornell DO [facility] ([facility]) [address] [place] [address] [phone] 5 12/01/2023 09:19:43 12/01/2023 12:23:31 Essential hypertension 87704813 I10 stable. continue lisinopril Type 2 rodriguez betes mellitus 03439410 E11.69 12/01/23 continue Trulicity, and Jardiance- unable to get Trulicity, will order Jardiance, consider Rybelsus if unable to get Jardiance. Continue Lantus, 50u each am. Counseled on diet, being careful how many carbs he is eating at lunch.- Using Lantus 50u each am, cannot get Trulicity, pharmacy is out and unsure when they will get anymore.01/02- A1c improved. continue trulicity and lantus. counseled on diet. 4- Reviewed and discussed A1c, improved from 8.8 to 7.1, continue Lantus 50u each am, 5u at hs, pt to citrus picker Trulicity from [facility] and resume it wkly, 3mg dose. [id number] Samuel Cornell DO [facility] ([facility]) [address] [place] [address] [phone] 5 12/24/2023 11:09:22 12/24/2023 13:13:39 Essential hypertension [id number] I10 with some cardiac concerns from Dr Evangelista at [facility]. has echo and [facility] scheduled. updated meds. will get his records. counseled pt that he currently does not have a significan t arrythmia, but I agree with workup. Type 2 rodriguez betheather mellitus 88834001 E11.69 : stable. no changes. counseled on diet, repeat labs next appt. continue Trulicity, and Jardiance- unable to get Trulicity, will order Jardiance, consider Rybelsus if unable to get Jardiance. Continue Lantus, 50u each am. Counseled on diet, being careful how many carbs he is eating at lunch.- Using Lantus 50u each am, cannot get Trulicity, pharmacy is out and unsure when they will get anymore.01/02- A1c improved. continue trulicity and lantus. counseled on diet. 4- Reviewed and discussed A1c, improved from 8.8 to 7.1, continue Lantus 50u each am, 5u at hs, pt to citrus picker Trulicity from [facility] and resume it wkly, 3mg dose. [id number] Samuel Cornell DO [facility] ([facility]) [address] [place] [address] [phone] 5 03/24/2024 10:01:44 03/25/2024 08:34:05 Essential hypertension 93248420 I10 with some cardiac concerns from Dr Evangelista at [facility]. has echo and [facility] scheduled. updated meds. will get his records. counseled pt that he currently does not have a significan t arrythmia, but I agree with workup. Type 2 rodriguez betheather mellitus 27383035 E11.69 : stable. no changes. counseled on diet, repeat labs next appt. continue Trulicity, and Jardiance- unable to get Trulicity, will order Jardiance, consider Rybelsus if unable to get Jardiance. Continue Lantus, 50u each am. Counseled on diet, being careful how many carbs he is eating at lunch.- Using Lantus 50u each am, cannot get Trulicity, pharmacy is out and unsure when they will get anymore.01/02- A1c improved. continue trulicity and lantus. counseled on diet. 4- Reviewed and discussed A1c, improved from 8.8 to 7.1, continue Lantus 50u each am, 5u at hs, pt to citrus picker Trulicity from [facility] and resume it wkly, 3mg dose. Mixed hyperlipidemia 267 552851 E78.2 continue atorvastat in, repeat labs next appt. [id number] Samuel Cornell DO [facility] ([facility]) [address] [place] [address] 03/28/2024 10:14:08 04/01/2024 08:52:08 Essential hypertension 32646553 I10 stable. continue lisinopril . amlodipine , carvedilol , valsartan. Type 2 rodriguez betes mellitus 61246833 E11.69 03/28/24: A1c above 8. will start back on trulicity. continue Jardiance. continue lantus 50u q AM. monitor glucose closely.: stable. no changes. counseled on diet, repeat labs next appt. continue Trulicity, and Jardiance- unable to get Trulicity, will order Jardiance, consider Rybelsus if unable to get Jardiance. Continue Lantus, 50u each am. Counseled on diet, being careful how many carbs he is eating at lunch.- Using Lantus 50u each am, cannot get Trulicity, pharmacy is out and unsure when they will get anymore.01/02- A1c improved. continue trulicity and lantus. counseled on diet. 4- Reviewed and discussed A1c, improved from 8.8 to 7.1, continue Lantus 50u each am, 5u at hs, pt to citrus picker Trulicity from [facility] and resume it wkly, 3mg dose. Mixed hyperlipidemia 267 013622 E78.2 continue atorvastat in, repeat labs next appt. Chest pain 55517705 R07. 9 persistent and chronic s/p AMI remotely. 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 no stenting. continue care with Cardiology , Dr. Evangelista at [facility]. Chronic low back pain 27 0620208 M54.50 chronic, not improving after several falls over the winter. has done rest, home exercises, nsaids. not helping. will start PT for this and his repeated falls with unsteady gait and weak BLE. External hemorrhoids 239 36937 K64.4 large. sometimes affecting BMs. 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 continue care with cardiologh y [id number] SHAI KWOK [facility] ([facility]) [address] [place] [address] [phone] 5 05/23/2024 08:39:04 05/23/2024 09:47:42 Acute bacterial bronchitis [id number] J20.9 VSS. No resp distress. Pt to stop the robitussin due to blood sugars. Tessalon prescribed today.Push oral fluids and rest.If you develop fever, sob, or start feeling worse then return for re-evaluat ion. [id number] Samuel Cornell DO [facility] ([facility]) [address] [place] [address] [phone] 5 07/05/2024 09:26:17 07/18/2024 09:00:52 Essential hypertension 96588097 I10 07/05/24: Counseled take Amlodipine at night. Decrease Valsartan to 1/2 tab each am. Continue Lisinopril , continue Carvedilol per Cardio. stable. continue lisinopril . amlodipine , carvedilol , valsartan. Type 2 rodriguez betes mellitus 37422828 E11.69 E11.51 Z79.4 03/28/24: A1c above 8. will start back on trulicity. continue Jardiance. continue lantus 50u q AM. monitor glucose closely.: stable. no changes. counseled on diet, repeat labs next appt. continue Trulicity, and Jardiance- unable to get Trulicity, will order Jardiance, consider Rybelsus if unable to get Jardiance. Continue Lantus, 50u each am. Counseled on diet, being careful how many carbs he is eating at lunch.- Using Lantus 50u each am, cannot get Trulicity, pharmacy is out and unsure when they will get anymore.01/02- A1c improved. continue trulicity and lantus. counseled on diet. 4- Reviewed and discussed A1c, improved from 8.8 to 7.1, continue Lantus 50u each am, 5u at hs, pt to citrus picker Trulicity from [facility] and resume it wkly, 3mg dose. Mixed hyperlipidemia 267 149067 E78.2 continue atorvastat in Chest pain 28421104 R07. 9 persistent and chronic s/p AMI remotely. continue care with cardiology Coronary atherosclerosis 952192391 I25.119 I25.2 Z95.1 s/p AMI with double CAGB around 2006. no stenting. continue care with Cardiology , Dr. Evangelista at [facility]. Chronic low back pain 27 2506837 M54.50 chronic, not improving after several falls over the winter. has done rest, home exercises, nsaids. not helping. will start PT for this and his repeated falls with unsteady gait and weak BLE. Peripheral vascular disease [id number] I73.9 I70.245 continue plavix, atorvastat in, bp control, continue care with cardiology Diastolic heart failure 399933321 I50.30 [id number] Following with Cardiology . [id number] Samuel Cornell DO [facility] ([facility]) [address] [place] [address] 07/05/2024 09:15:31 07/06/2024 12:35:35 Essential hypertension 59079325 I10 stable. continue lisinopril . amlodipine , carvedilol , valsartan. Type 2 rodriguez betes mellitus 01909369 E11.69 03/28/24: A1c above 8. will start back on trulicity. continue Jardiance. continue lantus 50u q AM. monitor glucose closely.: stable. no changes. counseled on diet, repeat labs next appt. continue Trulicity, and Jardiance- unable to get Trulicity, will order Jardiance, consider Rybelsus if unable to get Jardiance. Continue Lantus, 50u each am. Counseled on diet, being careful how many carbs he is eating at lunch.- Using Lantus 50u each am, cannot get Trulicity, pharmacy is out and unsure when they will get anymore.01/02- A1c improved. continue trulicity and lantus. counseled on diet. 4- Reviewed and discussed A1c, improved from 8.8 to 7.1, continue Lantus 50u each am, 5u at hs, pt to citrus picker Trulicity from [facility] and resume it wkly, 3mg dose. [id number] Samuel Cornell DO [facility] ([facility]) [address] [place] [address] [phone] 5 08/02/2024 09:20:54 08/11/2024 14:03:18 Essential hypertension 22930432 I10 07/05/24: Counseled take Amlodipine at night. Decrease Valsartan to 1/2 tab each am. Continue Lisinopril , continue Carvedilol per Cardio. stable. continue lisinopril . amlodipine , carvedilol , valsartan. Type 2 rodriguez betes mellitus 11997871 E11.69 E11.51 Z79.4 08/02/24: A1C was 8.6 on 07/05/24, Continue Lantus 50u each am, stop the 5u at night. Continue Jardiance. 03/28/24: A1c above 8. will start back on trulicity. continue Jardiance. continue lantus 50u q AM. monitor glucose closely.: stable. no changes. counseled on diet, repeat labs next appt. continue Trulicity, and Jardiance- unable to get Trulicity, will order Jardiance, consider Rybelsus if unable to get Jardiance. Continue Lantus, 50u each am. Counseled on diet, being careful how many carbs he is eating at lunch.- Using Lantus 50u each am, cannot get Trulicity, pharmacy is out and unsure when they will get anymore.01/02- A1c improved. continue trulicity and lantus. counseled on diet. 4- Reviewed and discussed A1c, improved from 8.8 to 7.1, continue Lantus 50u each am, 5u at hs, pt to citrus picker Trulicity from [facility] and resume it wkly, 3mg dose. [id number] Samuel Cornell DO [facility] ([facility]) [address] [place] [address] [phone] 5 10/11/2024 08:45:31 10/12/2024 10:32:16 Essential hypertension 00516194 I10 07/05/24: Counseled take Amlodipine at night. Decrease Valsartan to 1/2 tab each am. Continue Lisinopril , continue Carvedilol per Cardio. stable. continue lisinopril . amlodipine , carvedilol , valsartan. Type 2 rodriguez betes mellitus 23771149 E11.69 E11.51 Z79.4 08/02/24: A1C was 8.6 on 07/05/24, Continue Lantus 50u each am, stop the 5u at night. Continue Jardiance. 03/28/24: A1c above 8. will start back on trulicity. continue Jardiance. continue lantus 50u q AM. monitor glucose closely.: stable. no changes. counseled on diet, repeat labs next appt. continue Trulicity, and Jardiance- unable to get Trulicity, will order Jardiance, consider Rybelsus if unable to get Jardiance. Continue Lantus, 50u each am. Counseled on diet, being careful how many carbs he is eating at lunch.- Using Lantus 50u each am, cannot get Trulicity, pharmacy is out and unsure when they will get anymore.01/02- A1c improved. continue trulicity and lantus. counseled on diet. 4- Reviewed and discussed A1c, improved from 8.8 to 7.1, continue Lantus 50u each am, 5u at hs, pt to citrus picker Trulicity from [facility] and resume it wkly, 3mg dose. Mixed hyperlipidemia 267 941423 E78.2 continue atorvastat in [id number] Samuel Cornell DO [facility] ([facility]) [address] [place] [address] [phone] 5 10/13/2024 10:49:56 10/17/2024 14:11:43 Essential hypertension 31060291 I10 Stable, continue current tx.07/05/24 : Counseled take Amlodipine at night. Decrease Valsartan to 1/2 tab each am. Continue Lisinopril , continue Carvedilol per Cardio. stable. continue lisinopril . amlodipine , carvedilol , valsartan. Type 2 rodriguez betes mellitus 98309899 E11.69 E11.51 Z79.4 10/13/24: A1c improved to 7.4, continue current tx, Jardiance, Trulicity, Lantus 50u each am.08/02/24 : A1C was 8.6 on 07/05/24, Continue Lantus 50u each am, stop the 5u at night. Continue Jardiance. 03/28/24: A1c above 8. will start back on trulicity. continue Jardiance. continue lantus 50u q AM. monitor glucose closely.: stable. no changes. counseled on diet, repeat labs next appt. continue Trulicity, and Jardiance- unable to get Trulicity, will order Jardiance, consider Rybelsus if unable to get Jardiance. Continue Lantus, 50u each am. Counseled on diet, being careful how many carbs he is eating at lunch.- Using Lantus 50u each am, cannot get Trulicity, pharmacy is out and unsure when they will get anymore.01/02- A1c improved. continue trulicity and lantus. counseled on diet. 4- Reviewed and discussed A1c, improved from 8.8 to 7.1, continue Lantus 50u each am, 5u at hs, pt to citrus picker Trmiguel[facility] from [facility] and resume it wkly, 3mg dose. Mixed hyperlipidemia 267 361200 E78.2 continue atorvastat in Health Concerns Section Related Observation LastModified by Organization Detai ls LastModified Time None Recorded Concern Status LastModified by Organization Details LastModified Time None Recorded Advance Directives Directive None Recorded Payers Insurance Date Sequence Insurance Name Policy Number Policy Palacios Covered Member ID Palacios Member ID Guarantor Name 10/17/2024 1 [facility] (MEDICARE REPLACEMENT/ ADVANTAGE - HMO) [id number] Pedro Pablo Barahonacatracho [id number] Pedro Pablo Morena 05/23/2024 1 [employer] (MEDICARE REPLACEMENT/ ADVANTAGE - PPO) Pedro Pablo Morena [id number] Pedro Pablo Berg 10/17/2024 2 [employer] ( - MEDICARE SUPPLEMENT) Pedro Pablo Berg [id number] Pedro Pablo Berg Notes Date Note Type Note Provider Name and Address Organization Details Recorded Time 5 text/html ROS as noted in the HPI Pt presents for recheck, 3 months [facility] visit Overall doing well.Recently learned spouse with [facility], has signed herself a DNR code status. Pt accepting this. He saw Dr. Evangelista, Cardio, on 06/14/24:Assessment & Plan(1) HTN (hypertension):Qualifiers:H ypertension type: essential hypertension Qualified Code(s): I10 - Essential (primary) hypertensionAssessment & Plan:The plan is to increase carvedilol to 18.6 mg twice daily to improve blood pressure control. Regular home monitoring of blood pressure is crucial. Follow-up in six months is scheduled to reassess control and adjust treatment if necessary.(2) CAD (coronary artery disease):Assessment & Plan:The coronary artery disease is stable, and no changes are indicated. The mildly leaky valve is not causing symptoms and does not require intervention at this time. Regular monitoring is advised.PlanPatient Instructions:- Continue taking your prescribed medications as directed.- Start the increased dose of carvedilol as discussed.- Monitor your blood pressure at home and keep a log of your readings.- Report any new or worsening symptoms, such as severe dizziness, shortness of breath, or chest discomfort.- Follow up in six months as planned, or sooner if there are concerning symptoms.- Reach out if you have any questions or concerns about your medications or condition. He also reports he saw provider in [facility] recently, started on Plavix ( however per our medlist this doesn't appear to be a new med), since starting this he has been lightheaded. Samuel Cornell, DO [address] [place] [address], [phone], [facility] 07/13/2024 21:27:14 5 text/html ROS as noted in the HPI Pt presents for recheck, 1 month Overall doing well.Recently learned spouse with [facility], has signed herself a DNR code status. Pt accepting this. He admits that is not well enough for surgery and she is declining tx with chemo at this time. Daughter has POA. Left forearm soreness/pain for 1-2 weeks he called cardiology and was instructed if pain goes in to his chest from arm to go to the ER. As of now he does not have any pain from arm to chest just localized to forearm A1c 8.4 on 07/05/24.His blood glucose avg is 136 for 7 days, for 14 days 159, for 30 days is 182, and for 90 days is 198right now in clinic is 102 per CGMHe has changed his diet and his readings have improvedTaking Lantus 50u in the am, 5u at hs, Jardiance. Samuel Cornell, [address] [place] [address], [phone], [facility] 08/11/2024 09:37:59 5 text/html ROS as noted in the HPI Pt presents for recheck 3 months DM, HTN, HLD. He reports yesterday when he went to visit his at the [place] yesterday, he felt dizzy so he checked his bs. He didn't get to eat breakfast yesterday morning, was in a hurry because spouse had an appt.His bs had dropped to 49 and NH gave him some OJ and peanut butter crackers and glucose improved. His glucose in clinic is 155 right nowA1c 7.5 on 10/11/24, down from 8.4 on 07/05/24.Continues Jardiance, Trulicity, Lantus 50u each am.No new feet or vision problems. Updated eye exam with Dr. Reeves on 09/27/24. [facility] office called yesterday and was informed to cut out the salt in diet and no med changes Samuel Cornell, [address] [place] [address], [phone], [facility] 10/13/2024 12:44:38
--- OUTSIDE RECORDS SUMMARY | 2024-11-15 16:08 | XMS_ITS | Patient Health Record ---
Author Organization [facility] Address [address] [place] [address] Care Team Providers Care Agate Setter Name Role Phone Fran Monroe DO Primary Care Provider Unavail able TonaJoshAmy Unavailable [phone] Pia Bryan Unavailable [phone] Gallito Infante Unavailable [phone] Stuart Paulino Unavailable [phone] Allergies No Known Allergies Results Component Value Reference Range Notes US Doppler Scan Arterial LE Left-52030 Reviewed date:12/31/2023 09:16:30 AM Interpretation: Performing Lab: Notes/Report: [id number]=iSite [id number]&org=iSite US Doppler Scan Arterial LE Left-88407 Reviewed date:12/24/2023 09:38:41 AM Interpretation: Performing Lab: Notes/Report: This report was dictated at the [facility] FINAL REPORT Read This report was dict ated at the [facility] Reason For Referral No Information Medications Medication SIG (Take, Route, Frequency, Duration) Notes Start Date End Date Status Clopidogrel Bisulfate 75 MG Tablet 1 tablet Orally Once a day; Duration: 90 days 08/20/2023 Active Jardiance 10 MG Tablet 1 tablet Orally O nce a day Active Insulin Aspart 50 units Activ e Trulicity Active Valsartan 160 MG Tablet 1 tablet Orally Once a day Active Aspirin 81 MG Tablet Delayed Release 1 tablet Orally Once a day Active Carvedilol 6.25 MG Tablet 1 tablet with food Orally Twice a day Active Atorvastatin Calcium 40 MG Tablet 1 tablet Orally Once a day Active Social History Tobacco Use: Social History Observation Description Date Details (start date - stop date) Never Smoker NA - NA Social History Drugs/Alcohol: Social Info Question Answer Notes Caffeine Intake: 1-2 cups per day Tobacco Use: Social Info Question Answer Notes Tobacco Control (Standard) Tobacco use: Nonsmoker Additional Details Category Social Info Options Details Drugs/Alcohol: Do you smoke marijuana? De nies Do you drink alcohol? 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) Active confirmed Problem Peripheral vascular disease (752534310) Peripheral vascular disease, unspecified (I73.9) Active confirmed Problem S/P angioplasty with stent (Z95.820) Active confirmed Problem Peripheral vascular disease (842385608) Peripheral vascular disease (I73.9) Active confirmed Problem Diabetic peripheral neuropathy associated with type 2 diabetes mellitus (3344133060678) Type 2 diabetes mellitus with diabetic neuropathy, unspecified whether fpc insulin use (E11.40) Active confirmed Problem Intermittent claudication of bilateral lower limbs co-occurrent and due to atherosclerosis (finding) (73097332008403930 ) Atheroscler of [place] artery of both legs with intermit claudication (I70.213) Active confirmed Problem Non-healing ulce r of left foot, unspecified ulcer stage (L97.529) Active confirmed Vital Signs Heart Rate 70 /min 06/22/2024 Temperature 98.0 degrees Fahrenheit 06/22/2024 Respiratory Rate 16 /min 12/23/2023 Height-cm 185.42 cm 06/22/2024 Oximetry 98 % 06/22/2024 Blood pressure diastolic 82 mm Hg 06/22/2024 Weight-kg 85.3 kg 12/23/2023 Height 73 in 06/22/2024 Blood pressure systolic 130 mm Hg 06/22/2024 Weight 188.05 lbs 12/23/2023 BMI 24.81 kg/m2 12/23/2023 Encounters Encounter Location Date Provider Diagnosis [facility] [address] [place] [address] 12/23/2023 [facility] [address] [place] [address] 06/22/2024 [facility] [address] [place] [address] 12/23/2023 Amy Carbone S/P angioplasty with stent Z95.820 ; Peripheral vascular disease I73.9 and Atheroscler of [place] artery of both legs with intermit claudication I70.213 [facility] [address] [place] [address] 12/29/2023 Stuart Paulino Atheroscler of nativ e artery of both legs with intermit claudication I70.213 [facility] [address] [place] [address] 06/22/2024 Pia Bryan S/P angioplasty with stent Z95.820 ; Peripheral vascular disease I73.9 and Atheroscler of [place] artery of both legs with intermit claudication I70.213 [facility] [address] [place] [address] 07/05/2024 Stuart Paulino Atheroscler of nativ e artery of both legs with intermit claudication I70.213 Assessments Encounter Date Diagnosis (ICD Code) Assessment Notes Treatment Notes Treatment Clinical Notes Section Notes 07/05/2024 Atheroscler of [place] artery of both legs with intermit claudication (ICD-10 - I70.213) PEG with waveforms: Right 0.82 with monophasic waveforms with brisk upstroke Left 0.61 with monophasic waveforms moderately dampened. Findings are consistent with moderate to severe atherosclerosis bilateral lower extremities with the left being worse than the right. 12/29/2023 Atheroscler of [place] artery of both legs with intermit claudication (ICD-10 - I70.213) Arterial duplex impression: Left superficial femoral and popliteal artery stent is widely patent without evidence of in-stent restenosis. 06/22/2024 S/P angioplasty with stent (ICD-10 - Z95.820) Follow-up in 6 months with ABIs in the clinic or sooner if needed. 12/23/2023 S/P angioplasty with stent (ICD-10 - Z95.820) Follow-up in 6 months with ABIs in the clinic or sooner if needed. Educated on signs and symptoms of lower limb ischemia, and ER precautions. 12/23/2023 Peripheral vascular disease (ICD-10 - I73.9) 06/22/2024 Peripheral vascular disease (ICD-10 - I73.9) Patient was instructed to call us with any questions or concerns, particularly any worsening of condition, This includes pain, swelling, change in color or development of sores in lower extremities, particularly on the left. 06/22/2024 Atheroscler of [place] artery of both legs with intermit claudication (ICD-10 - I70.213) 12/23/2023 Atheroscler of [place] artery of both legs with intermit claudication (ICD-10 - I70.213) Plan Of Treatment Pending Test Test Name Order Date US Ankle Brachial Pressure Index-[id number] 0 09/17/2023 Next Appt Details Provider Name:Stuart masters, 12/22/2024 12:45:00 PM, [address] [place] [address] [address] [place], [place], [address], Provider Name:Amy dias, 12/22/2024 01:15:00 PM, [address] [place] [address] [address] [place], [place], [address], Insurance Providers Payer Name Payer Address Payer Phone Subscriber Number Group Number Insured Name Patient Relationship to Insured Coverage Start Date Coverage End Date [facility] Medicare Advantage - PPO [address] [address] [place] [address] [id number] Pedro Pablo Beltran Self - patient is the insured for Life Secondary to Medicare [address] [place] [phone] [id number] Pedro Pablo Beltran Self - patient is the insured Medical (General) History Medical History History ICD Code Diabetes Type 2 Hyperlipidemia Surgical History Surgery Date(Month/Year) Double Bypass Hernia Surgery Endovascular treatment of L lower extrem ity 08.28.2023 Hospitalization History Reason Date(Month/Year) ER Visit - Fall/stitches
[2024-11-15] MEDS: iohexol 350 mg/mL 500 mL Btl (per mL) IV (16:14)
[2024-11-15 16:21] LABS: Hematocrit 48.7 % (37-53); Hemoglobin 15.30 g/dL (11.27-16.99); Mean Corpuscular HGB Conc 31.4 g/dL (30-55); Mean Corpuscular Hemoglobin 28.5 pg (27-33); Mean Corpuscular Volume 90.9 fl (82-101); Nucleated Red Blood Cells % 0 %; Platelet Count 326 10^3/cmm (157-399); Red Blood Count 5.36 10^6/uL (3.85-5.65); White Blood Count 11.12 10^3/uL (3.29-11.43)
--- NOTE | 2024-11-15 16:22 | W.ED.NEUROSD ---
HPI - Neuro Symptoms/Deficit General: Chief Complaint: Neuro Symptoms/Deficit Stated Complaint: Stroke Alert Time Seen by Provider: 11/15/24 16:04 History of Present Illness: 84-year-old man with a history of coronary artery disease, chronic venous insufficiency, V. tach, and hypertension who presents to the emergency room with concern for strokelike symptoms. 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 These seem to have resolved by the time he arrived here. No trouble speaking. He is alert and oriented. I sees no focal motor deficits on his exam. Related Data Home Medications ?Medication ?Instructions ?Recorded ?Confirmed aspirin 81 mg tablet,delayed 81 mg PO QAM 03/22/23 06/14/24 release dulaglutide 1.5 mg/0.5 mL 1.5 mg SUBCUT Q7D 03/22/23 06/14/24 subcutaneous pen injector (Trulicity) insulin glargine 100 unit/mL (3 See Rx Instructions .Route .COMPLEX 03/22/23 06/14/24 mL) subcutaneous pen (Lantus Solostar U-100 Insulin) multivitamin 1 tab PO QAM 03/22/23 06/14/24 empagliflozin 10 mg tablet 10 mg PO DAILY 05/12/24 06/14/24 (Jardiance) hydrocortisone acetate 25 mg 25 mg OK DAILY PRN swelling/ pain 05/12/24 06/14/24 rectal suppository (Anusol-HC) Previous Rx's ?Medication ?Instructions ?Recorded atorvastatin 40 mg tablet 40 mg PO QAM #90 tabs 12/17/23 amlodipine 10 mg tablet 10 mg PO DAILY #90 tabs 06/06/24 valsartan 320 mg tablet 320 mg PO DAILY #90 tabs 07/26/24 carvedilol 12.5 mg tablet 12.5 mg PO DIRECTED #315 tabs 08/02/24 spironolactone 25 mg tablet 25 mg PO DAILY #90 tabs 11/03/24 Allergies Allergy/AdvReac Type Severity Reaction Status Date / Time No Known Allergies Allergy Verified 06/14/24 14:29 Review of Systems Narrative: Constitutional symptoms: Negative except as documented in HPI. Skin symptoms: Negative except as documented in HPI. Eye symptoms: Negative except as documented in HPI. ENMT symptoms: Negative except as documented in HPI. Respiratory symptoms: Negative except as documented in HPI. Cardiovascular symptoms: Negative except as documented in HPI. Gastrointestinal symptoms: Negative except as documented in HPI. Genitourinary symptoms: Negative except as documented in HPI. Musculoskeletal symptoms: Negative except as documented in HPI. Neurologic symptoms: Negative except as documented in HPI. Psychiatric symptoms: Negative except as documented in HPI. Endocrine symptoms: Negative except as documented in HPI. PFSH ED PFSH: Medical History (Updated 11/15/24 @ 17:28 by Luh Dailey MD) Myocardial infarction ASHD (arteriosclerotic heart disease) HTN (hypertension) Surgical History S/P CABG (coronary artery bypass graft) Family History Father Diabetes Other CAD (coronary artery disease) Social History (Updated 06/14/24 @ 14:32 by Radha Brown LPN) Smoking and tobacco/nicotine status: never used tobacco/nicotine Alcohol intake: never Substance/Drug Use: never Household members: spouse Marital status: Current occupational status: retired Physical Exam Narrative: EXAM NARRATIVE: General: Alert, no acute distress. Skin: Warm, dry. Head: Normocephalic, atraumatic. Neck: Supple, trachea midline. Eye: Extraocular movements are intact. Ears, nose, mouth and throat: Tacky oral mucosa Cardiovascular: Regular, Normal peripheral perfusion. Respiratory: Lungs are clear to auscultation, respirations are non-labored, breath sounds are equal, Symmetrical chest wall expansion. Gastrointestinal: Soft, Nontender, Non distended Musculoskeletal: Normal ROM, no deformity. Neurological: Alert and oriented, No focal neurological deficit observed. Psychiatric: Cooperative, appropriate mood & affect. Course Vital Signs: Vital signs: Vital Signs Temperature 98.1 F 11/15/24 16:21 Pulse Rate 66 11/15/24 17:36 Respiratory Rate 16 11/15/24 17:36 Blood Pressure 103/65 11/15/24 17:36 Pulse Oximetry 93 11/15/24 17:36 Oxygen Delivery Me thod Room Air 11/15/24 16:21 MDM - Neuro Symptoms/Deficit Medical Decision Making Medical decision making: Differential diagnosis for patient with focal neurologic deficit(s) includes but not limited to and based on the above HPI, review of systems and physical exam: ischemic stroke, hemorrhagic stroke and embolic stroke secondary to atrial fibrillation), TIA, Beltrán's palsey, metabolic encephalopathy with previous stroke. Orders placed to evaluate differential diagnosis based on the above differential, HPI and physical exam Last known well time: This is a bit unclear. He says he was feeling bad since yesterday and then noticed he could not buckle his seatbelt so he went and sought medical attention at that time. Either way his symptoms have mostly resolved at this point. He did go to CT immediately upon arrival where I examined him. NIH was 0 NIH Stroke Scale/Score (NIHSS) from [email or web address] on 11/15/2024 All calculations should be rechecked by clinician prior to use RESULT SUMMARY: 0 points NIH Stroke Scale INPUTS: 1A: Level of consciousness ?> 0 = Alert; keenly responsive 1B: Ask month and age ?> 0 = Both questions right 1C: 'Blink eyes' & 'squeeze hands' ?> 0 = Performs both tasks 2: Horizontal extraocular movements ?> 0 = Normal 3: Visual le ?> 0 = No visual loss 4: Facial palsy ?> 0 = Normal symmetry 5A: Left arm motor drift ?> 0 = No drift for 10 seconds 5B: Right arm motor drift ?> 0 = No drift for 10 seconds 6A: Left leg motor drift ?> 0 = No drift for 5 seconds 6B: Right leg motor drift ?> 0 = No drift for 5 seconds 7: Limb Ataxia ?> 0 = No ataxia 8: Sensation ?> 0 = Normal; no sensory loss 9: Language/aphasia ?> 0 = Normal; no aphasia 10: Dysarthria ?> 0 = Normal 11: Extinction/inattention ?> 0 = No abnormality CT head: No acute intracranial process. No intracranial hemorrhage, no evidence of infarct. No evidence of acute fracture. This was reviewed and interpreted by myself the emergency room physician. I also reviewed the radiology report. EKG: Time 1622. Rate 65. Normal sinus rhythm, nonspecific ST wave abnormality, no ectopy, normal OK & QRS intervals, This was reviewed and interpreted by myself the ER physician at 1628 CTA head and neck: Possible vertebral artery occlusion. This was reviewed and interpreted by myself the emergency room physician. I also reviewed the radiology report. Consultation: I spoke with Dr. Sanchez initially and the patient had resolved completely. She recommended Plavix and statin. CTA showed a vertebral artery occlusion. She recommended consultation with [facility] stroke team at this point which has been done. Consultation: I spoke with the [facility] stroke team. They feel like with the patient's resolution of symptoms that the vertebral artery finding is not acute but even if it were it would not be something that would be a candidate for thrombectomy. Lab Review: Laboratory results were reviewed and interpreted by myself the emergency room physician. No leukocytosis. No anemia. BUN and creatinine are mildly elevated at [address] abdomen pelvis to rule out obstructive uropathy: No acute process. This was reviewed and interpreted by myself the emergency room physician. I also reviewed the radiology report. I reviewed the patient's medical record. Reexamination: Patient remained stable. No increased work of breathing. No altered mental status. No focal motor deficits. Assessment and plan: Transient ischemic attack Vertebral artery occlusion Dehydration Acute renal insufficiency ?Normal saline bolus. -I discussed the patient with the hospitalist on-call who is admitting the patient. - Discussed findings and plan with patient. Answered any questions. - All laboratory values were reviewed and interpreted personally by myself, the ER physician - All imaging was reviewed and interpreted personally by myself, the ER physician. - Evaluation and treatment of this problem were appropriate in the emergency setting Lab Data 11/15/24 16:10 11/15/24 16:[address] 11/15/24 16:05 IMPRESSION: No acute intracranial abnormality. ASSESSMENT: ASPECTS ([place] Stroke Program Early CT Score) is 10. ADDENDUM: 11/15/24 [id number] THIS REPORT CONTAINS FINDINGS THAT MAY BE CRITICAL TO PATIENT CARE. The findings were verbally communicated via telephone conference with LUH DAILEY at 4:22 PM CDT on 11/15/2024. The findings were acknowledged and understood. Head/Neck CTA 11/15/24 16:07 IMPRESSION: 1. Left DIRECT ENTRY MIDWIFE stenosis 2. 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 This may be acute REFERENCES: NASCET CRITERIA. The degree of stenosis in the cervical segment of the internal carotid artery is based on NASCET criteria. Normal is no stenosis. Mild is less than 50% stenosis. Moderate is 50-69% stenosis. Severe is 70% to 99% stenosis. Total occlusion is no detectable patent lumen. ADDENDUM: 11/15/24 [id number] COMMENT: THIS REPORT CONTAINS FINDINGS THAT MAY BE CRITICAL TO PATIENT CARE. The exam findings were verbally communicated by me to LUH DAILEY via telephone conference at 4:55 PM CDT on 11/15/2024. The findings were acknowledged and understood. Abdomen/Pelvis CT 11/15/24 17:27 IMPRESSION: 1. No acute findings. 2. Cholelithiasis 3. Sigmoid diverticulosis 4. Bilateral inguinal hernia 5. Prostate enlargement with chronic bladder wall changes Laboratory Results WBC 11.12 10^3/uL (3.29-11.43) 11/15/24 16:10 RBC 5.36 10^6/uL (3.85-5.65) 11/15/24 16:10 Hgb 15.30 g/dL (11.27-16.99) 11/15/24 16:10 Hct 48.7 % (37-53) 11/15/24 16:10 MCV 90.9 fl (82-101) 11/15/24 16:10 MCH 28.5 pg (27-33) 11/15/24 16:10 MCHC 31.4 g/dL (30-55) 11/15/24 16:10 RDW 13.2 % (12.1-15.1) 11/15/24 16:10 Plt Count 326 10^3/cmm (157-399) 11/15/24 16:10 MPV 11.7 fL (7.4-10.4) H 11/15/24 16:10 Neut % (Auto) 74.6 % 11/15/24 16:10 Lymph % (Auto) 17.1 % 11/15/24 16:10 [place] % (Auto) 7.1 % 11/15/24 16:10 Eos % (Auto) 0.5 % 11/15/24 16:10 Baso % (Auto) 0.3 % 11/15/24 16:10 Neut # (Auto) 8.29 10^3/uL (1.8-7.7) H 11/15/24 16:10 Lymph # (Auto) 1.9 10^3/uL (0.8-4.8) 11/15/24 16:10 [place] # (Auto) 0.8 10^3/uL (0.2-0.9) 11/15/24 16:10 Eos # (Auto) 0.1 10^3/uL (0.0-0.8) 11/15/24 16:10 Baso # (Auto) 0.0 10^3/uL (0.0-0.1) 11/15/24 16:10 Nucleated RBC % (auto) 0 % 11/15/24 16:10 Nucleated RBCs # 0.0 /100WBC 11/15/24 16:10 PT 13.20 SECONDS (12.1-14.9) 11/15/24 16:10 INR 0.94 (0.8-1.2) 11/15/24 16:10 APTT 26.3 SECONDS (23.9-36.7) 11/15/24 16:10 Sodium 140 mmol/L (136-145) 11/15/24 16:10 Potassium 5.0 mmol/L (3.5-5.1) 11/15/24 16:10 Chloride 99 mmol/L (98-107) 11/15/24 16:10 Carbon Dioxide 26 mmol/L (22-29) 11/15/24 16:10 Anion Gap 20.0 (5-19) H 11/15/24 16:10 BUN 44 mg/dL (8-23) H 11/15/24 16:10 Creatinine 2.1 mg/dL (0.7-1.2) H 11/15/24 16:10 GFR Calculation Not Reportable 11/15/24 16:10 Glucose 173 mg/dL (65-115) H 11/15/24 16:10 Calculated Osmolality 305 mOsm/kg (285-295) H 11/15/24 16:10 Calcium 9.6 mg/dL (8.5-10.5) 11/15/24 16:10 Total Bilirubin 0.6 mg/dL (0.15-1.2) 11/15/24 16:10 AST 11 U/L (0-40) 11/15/24 16:10 ALT 11 U/L (0-41) 11/15/24 16:10 Alkaline Phosphatase 114 U/L (40-130) 11/15/24 16:10 Total Protein 7.8 g/dL (6.6-8.7) 11/15/24 16:10 Albumin 4.3 g/dL (3.5-5.2) 11/15/24 16:10 Globulin 3.5 g/dL (1.3-4.6) 11/15/24 16:10 All radiology interpretation(s) finalized by discharge Discharge Plan Discharge Patient Disposition: Admitted As Inpatient Clinical Impression: Transient cerebral ischemia, Renal insufficiency, Dehydration, Occlusion of left vertebral artery Condition: Stable Coding Level of Care Code ED [facility] for [facility]
[2024-11-15 16:37] LABS: INR 0.94 (0.8-1.2); Prothrombin Time 13.20 SECONDS (12.1-14.9)
[2024-11-15 16:38] LABS: Partial Thromboplastin Time 26.3 SECONDS (23.9-36.7)
[2024-11-15 16:47] LABS: Alanine Aminotransferase 11 U/L (0-41); Albumin Level 4.3 g/dL (3.5-5.2); Alkaline Phosphatase 114 U/L (40-130); Anion Gap 20.0 (5-19); Aspartate Amino Transferase 11 U/L (0-40); Blood Urea Nitrogen 44 mg/dL (8-23); Calcium 9.6 mg/dL (8.5-10.5); Carbon Dioxide 26 mmol/L (22-29); Chloride 99 mmol/L (98-107); Creatinine Clr Calc Pharmacy 29.4333; Globulin 3.5 g/dL (1.3-4.6); Glucose 173 mg/dL (65-115); Osmolality Calculated 305 mOsm/kg (285-295); Potassium 5.0 mmol/L (3.5-5.1); Sodium 140 mmol/L (136-145); Total Protein 7.8 g/dL (6.6-8.7)
--- NOTE | 2024-11-15 17:27 | CTR_ITS ---
PROCEDURE INFORMATION: Exam: CT Abdomen And Pelvis Without Contrast Exam date and time: 11/15/2024 5:49 PM Age: 84 years old Clinical indication: Abnormal findings; Abnormal lab test; Abnormal kidney function lab tests; Prior surgery; Surgery date: 6+ months; Surgery type: Hernia; Additional info: Renal failure, R/O obstructive uropathy TECHNIQUE: Imaging protocol: Computed tomography of the abdomen and pelvis without contrast. Radiation optimization: All CT scans at this facility use at least one of these dose optimization techniques: automated exposure control; mA and/or kV adjustment per patient size (includes targeted exams where dose is matched to clinical indication); or iterative reconstruction. COMPARISON: CR XR hip RT 2-3V wo/w pel* [id number] 03/22/2023 10:52 AM RADIATION DOSE METRICS: Total DLP (mGy-cm): 889.33 FINDINGS: Lungs: Lung bases are clear. No pleural effusion. Liver: Normal. No mass. Gallbladder and biliary ducts: Multiple gallstones are noted in the gallbladder but the gallbladder does not appear inflamed and demonstrates normal wall thickness. Pancreas: Normal. No ductal dilation. Spleen: Normal. No splenomegaly. Adrenal glands: Normal. No mass. Kidneys and ureters: Normal. No hydronephrosis. Stomach and bowel: Multiple diverticula involve the sigmoid colon. There is no sign of diverticulitis. Appendix: No evidence of appendicitis. Intraperitoneal space: Unremarkable. No free air. No significant fluid collection. Vasculature: Unremarkable. No abdominal aortic aneurysm. Lymph nodes: Unremarkable. No enlarged lymph nodes. Urinary bladder: Unremarkable as visualized. Reproductive: Prostate gland enlargement is noted along with chronic bladder wall thickening. Bones/joints: Unremarkable. No acute fracture. Soft tissues: Bilateral inguinal hernias contain mesenteric fat. CT/CT abdomen pelvis wo con [id number] IMPRESSION: 1. No acute findings. 2. Cholelithiasis 3. Sigmoid diverticulosis 4. Bilateral inguinal hernia 5. Prostate enlargement with chronic bladder wall changes
--- NOTE | 2024-11-15 18:41 | PM.HP ---
Providers/Chief Complaint Admitting Physician: Andi Hamlin MD Primary Care Provider: Fran Monroe DO Chief Complaint: Stroke Alert History of Present Illness Pedro Pablo Berg is a 84 year old male with past medical history of hypertension, CAD post CABG, type 2 diabetes mellitus, ventricular tachycardia at the time of CABG, history of atrial tachycardia presents to the ER today because of strokelike symptoms. As per patient he has not been feeling at his best for last couple of days. New medication was started for him last week since then his blood sugars and blood pressures have been erratic. He is not able to tell the name of the medication. Today after visiting his at senior care when he was trying to sit back in the car he was not able to manipulate and work the seatbelt hence he went back into the senior care who called the EMS. As per the nursing staff at [facility] he was having right-sided facial droop and weakness in his right upper limb. By the time he presented to the ER his symptoms had resolved. When seen in the ER with daughter at bedside his heart rate was 90 bpm, saturating 95% on room air, blood pressure of 150 over 70 mmHg. Denies any new complaints though as per his daughter his voice is slightly garbled than his usual. Complains of occasional chest heaviness on exertion. Has been compliant with his medications. Review of Systems General: Reports: 10 or more systems reviewed and unremarkable except in HPI and below Const: Denies: fever(s), chills, body aches, change in appetite, change in weight, malaise, night sweats, diaphoresis, change in sleep pattern, daytime sleepiness or snoring Eyes: Denies: change in vision, blurry vision, photophobia, eye discomfort or eye discharge ENMT: Denies: throat pain, enlarged tonsils, hoarseness, mouth pain, oral sores, dry mouth, tinnitus, nasal congestion or post nasal drip Card: Denies: chest pain, palpitations, irregular heart rhythm, edema, swelling of feet/ankles, lightheadedness, syncope, pre-syncope, dyspnea on exertion, orthopnea, leg pain with exertion or acrocyanosis Resp: Denies: dyspnea, productive cough, non-productive cough, wheezing, stridor, pain on inspiration, change in phlegm color, hemoptysis or chest congestion GI: Denies: abdominal pain, nausea, vomiting, hematemesis, coffee ground emesis, dysphagia, heartburn, diarrhea, constipation, bloating, GI cramping, change in bowel habits, pain on defecation, hematochezia or melena : Denies: flank pain, difficulty urinating, dysuria, urinary frequency, urinary urgency, urinary hesitancy, urinary dribbling, difficulty starting urination, change in urine stream, nocturia or hematuria Musc: Denies: neck pain, back pain, extremity pain, joint pain, joint swelling, joint redness, joint stiffness or limited range of motion Neuro: Denies: headache(s), numbness in extremities, weakness in extremities, sensory changes, lack of coordination, difficulty walking, frequent falls, dizziness, vertigo, confusion, Slurred speech present, difficulty communicating thoughts or seizure-like activity Psych: Denies: anxiety, depression, mood swings, panic attacks, hopelessness or irritability Endo: Denies: polyuria, polydipsia, tired all the time, cold intolerance, excessive sweating, flushing or heat intolerance Jorge L/Lymph: Denies: easy bruising or easy bleeding All/Imm: Denies: tongue swelling, facial swelling or acute wheezing Medications/Allergies Home Medications ?Medication ?Instructions ?Recorded ?Confirmed ?Last Taken ?Type aspirin 81 mg tablet,delayed 81 mg PO QAM 03/22/23 06/14/24 05/12/24 History release dulaglutide 1.5 mg/0.5 mL 1.5 mg SUBCUT Q7D 03/22/23 06/14/24 05/06/24 History subcutaneous pen injector (Trulicity) insulin glargine 100 unit/mL (3 See Rx Instructions .Route .COMPLEX 03/22/23 06/14/24 05/12/24 History mL) subcutaneous pen (Lantus Solostar U-100 Insulin) multivitamin 1 tab PO QAM 03/22/23 06/14/24 05/12/24 History atorvastatin 40 mg tablet 40 mg PO QAM #90 tabs 12/17/23 06/14/24 05/12/24 Rx empagliflozin 10 mg tablet 10 mg PO DAILY 05/12/24 06/14/24 05/12/24 History (Jardiance) hydrocortisone acetate 25 mg 25 mg OR DAILY PRN swelling/ pain 05/12/24 06/14/24 Unknown History rectal suppository (Anusol-HC) amlodipine 10 mg tablet 10 mg PO DAILY #90 tabs 06/06/24 06/14/24 Unknown Rx valsartan 320 mg tablet 320 mg PO DAILY #90 tabs 07/26/24 Unknown Rx carvedilol 12.5 mg tablet 12.5 mg PO DIRECTED #315 tabs 08/02/24 Unknown Rx spironolactone 25 mg tablet 25 mg PO DAILY #90 tabs 11/03/24 Unknown Rx Allergies Allergy/AdvReac Type Severity Reaction Status Date / Time No Known Allergies Allergy Verified 06/14/24 14:29 PFSH Acute PFSH: Medical History (Updated 11/15/24 @ 18:47 by Andi Hamlin MD) Chronic venous insufficiency Peripheral arterial occlusive disease Type 2 diabetes mellitus Atelectasis, bilateral Myocardial infarction ASHD (arteriosclerotic heart disease) HTN (hypertension) Surgical History (Updated 11/15/24 @ 18:47 by Andi Hamlin MD) S/P hernia repair S/P CABG (coronary artery bypass graft) Family History Father Diabetes Other CAD (coronary artery disease) Social History (Updated 06/14/24 @ 14:32 by Radha Brown LPN) Smoking and tobacco/nicotine status: never used tobacco/nicotine Alcohol intake: never Substance/Drug Use: never Household members: spouse Marital status: Current occupational status: retired Vitals/I&O/Wt Last Vital Signs Temp 98.1 F 11/15/24 16:21 Pulse 90 11/15/24 18:28 Resp 18 11/15/24 18:28 BP 151/67 11/15/24 18:28 Pulse Ox 96 11/15/24 18:28 O2 Del Method Room Air 11/15/24 16:21 11/15/24 11/15/24 11/15/24 06:59 14:59 22:59 Intake Total 0 / 0 Balance 0 / 0 Weight last 48 hrs Weight 86.183 kg Physical Exam Narrative: General: No acute distress, AO x3 HEENT: PERRLA, pupils bilaterally equal and reactive Chest: Normal vesicular breath sounds, no added sounds, equal good air entry bilaterally CVS: S1-S2 regular, no murmurs, no tachycardia, no gallops, no rubs Abdomen: Soft, nontender, no organomegaly, bowel sounds present Neuro: No focal deficits, no facial deformity,, garbled voice AO x3, power 4 /5 in all limbs Data 11/15/24 16:10 11/15/24 16:10 A&P Assessment and plan 1. Transient cerebral ischemia: Associated with right-sided upper limb weakness and drooping of the face along with garbled voice. Symptoms resolved by time presented to the ER. Continue with home dose of aspirin, statin. Add Plavix [address] head, CTA head and neck. Concern for occlusion of left vertebral artery. Appreciate neurology recommendation from [facility]. No need for embolectomy for now. PT/OT/speech evaluation. Goal blood pressure less than 140/90 mmHg. Neurochecks every 4 hour. Telemetry monitoring. Check urine drug screen, alcohol level. Check A1c, lipid panel, echocardiogram. 2. Type 2 diabetes mellitus: Check A1c. Insulin sliding scale at low-dose protocol. Add Lantus depending on blood sugar and insulin requirement in next 24 hours. 3. Occlusion of left vertebral artery: 4. Acute kidney injury: Baseline creatinine around 1.2. Currently 2.1. Medication reconciliation done for nephrotoxic drugs. Normal saline at 75 cc/h. CT abdomen pelvis negative for obstructive nephropathy. Check urinalysis, urine lites, urine creatinine. Monitor BMP daily. Hold off on home dose of spironolactone and ARB 5. HTN (hypertension): Goal blood pressure less than 140/90 mmHg. Continue with home dose of amlodipine, Coreg at 6.25 mg twice daily. Holding losartan as above. Uptitrate as for goal blood pressure. 6. CAD (coronary artery disease): Complains of occasional chest heaviness. Last Lexiscan stress test back in December 2023 negative. Check troponin cycled. Echocardiogram as above. Plan: CODE STATUS: Daughter will be DPOA. DNR/DNI Carb consistent cardiac diet Protonix for PUD prophylaxis Heparin 5000 every 12 hourly for DVT prophylaxis PDMP PDMP Reviewed: Not Reviewed Attestations Medical Necessity Statement*: Admission for more than 2 midnights for management of TIA, acute kidney injury Diagnoses Transient cerebral ischemia G45.9 Type 2 diabetes mellitus E11.9 Occlusion of left vertebral artery I65.02 Acute kidney injury N17.9 HTN (hypertension) I10 CAD (coronary artery disease) I25.10
[2024-11-15 19:37] LABS: Troponin(5th) Baseline 46 ng/L (0-15)
[2024-11-15 19:38] LABS: Lactic Sepsis W/Reflex 0.8 mmol/L (0.5-2.2)
[2024-11-15 19:45] LABS: Procalcitonin 0.09 ng/mL (0-0.5)
[2024-11-15] MEDS: pantoprazole 40 mg SDV IVP (20:12)
[2024-11-15] MEDS: heparin 5,000 unit/mL INJ 1 mL 5000 UNIT SUBCUT (20:12)
[2024-11-15 20:17] LABS: Estmated Average Glucose 192; Hemoglobin A1C 8.3 % (4.0-6.0)
[2024-11-15 20:32] LABS: Iron 136 ug/dL (59-158); Thyroid Stimulating Hormone 1.31 uIU/mL (0.27-4.20); Total Iron Binding Capacity 338 mcg/dl; Unsaturated Iron Binding 202 ug/dL (112-347); Vitamin B12 630 pg/mL (232-1245)
--- NOTE | 2024-11-15 21:01 | ECG_ITS ---
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 Measurements Intervals [place] Rate: 67 P: 78 [place]: 196 QRS: -5 QRSD: 89 T: 64 QT: 405 QTc: 430 Interpretive Statements SINUS RHYTHM NONSPECIFIC T-WAVE ABNORMALITY Compared to ECG 11/15/2024 16:22:24 T-wave abnormality now present Sinus arrhythmia no longer present Electronically Signed On 11-15-2024 23:52:44 CDT by Jax Stephen M.D. [email or web address]
[2024-11-15 21:43] LABS: Troponin 5 2HR 43.69 ng/L (0-15)
[2024-11-15 21:46] LABS: Troponin 5 2HR Delta -2.31 ABS# (0-10)
[2024-11-16] VITALS (13 sets, daily range): BP systolic 120–177; BP diastolic 58–94; PULSE 61–71; RESP 11–23; TEMP 36.6–36.8; O2SAT 91–97
--- NOTE | 2024-11-16 00:51 | ECG_ITS ---
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
[2024-11-16 01:45] LABS: Hematocrit 44.2 % (37-53); Hemoglobin 13.80 g/dL (11.27-16.99); Mean Corpuscular HGB Conc 31.2 g/dL (30-55); Mean Corpuscular Hemoglobin 28.5 pg (27-33); Mean Corpuscular Volume 91.3 fl (82-101); Nucleated Red Blood Cells % 0 %; Platelet Count 265 10^3/cmm (157-399); Red Blood Count 4.84 10^6/uL (3.85-5.65); White Blood Count 8.82 10^3/uL (3.29-11.43)
[2024-11-16 02:06] LABS: PCP Screen Urine Negative (Negative)
[2024-11-16 02:12] LABS: Cholesterol 217 mg/dL (0-200); HDL Cholesterol 28 mg/dL (60-100); Triglycerides 344 mg/dL (0-150); Troponin 5 6HR 46.04 ng/L (0-15); Troponin 5 6HR Delta 0.04 ng/L (0-12)
[2024-11-16 02:13] LABS: Alanine Aminotransferase 11 U/L (0-41); Albumin Level 3.4 g/dL (3.5-5.2); Alkaline Phosphatase 89 U/L (40-130); Aspartate Amino Transferase 13 U/L (0-40); Blood Urea Nitrogen 42 mg/dL (8-23); Calcium 8.6 mg/dL (8.5-10.5); Carbon Dioxide 22 mmol/L (22-29); Chloride 107 mmol/L (98-107); Creatinine Clr Calc Pharmacy 37.0500; Globulin 3.0 g/dL (1.3-4.6); Glucose 132 mg/dL (65-115); Magnesium 2.5 mg/dL (1.7-2.3); Osmolality Calculated 306 mOsm/kg (285-295); Sodium 142 mmol/L (136-145); Total Protein 6.4 g/dL (6.6-8.7)
[2024-11-16 02:14] LABS: Procalcitonin 0.10 ng/mL (0-0.5)
[2024-11-16 02:16] LABS: Anion Gap 17.2 (5-19); Potassium 4.2 mmol/L (3.5-5.1)
[2024-11-16 02:19] LABS: Glucose Urine UA 2+ (Normal); Nitrate Urine Negative (Negative); Specific Gravity, Urine 1.016 (1.005-1.030)
[2024-11-16 02:29] LABS: Potassium, Radom Urine 35 mmol/L; Urine Random Chloride 35 mmol/L; Urine Random Sodium 56 mmol/L
[2024-11-16 03:06] LABS: UA Manual Slide Review YES
[2024-11-16 03:07] LABS: Add Urine Microscopic? YES
[2024-11-16] MEDS: morphine 4 mg/mL SDV 1 mL 2 MG IVP (04:09)
--- OUTSIDE RECORDS SUMMARY | 2024-11-16 06:55 | XMS_ITS | Patient Health Record ---
Author Organization [facility] Address [address] [place] [address] Care Team Providers Care Financial Sales Representative Name Role Phone Fer TOVAR Fran Primary Care Provider Unavail able Tona Amy Unavailable [phone] Pia Bryan Unavailable [phone] Gallito Infante Unavailable [phone] Stuart Paulino Unavailable [phone] Allergies No Known Allergies Results Component Value Reference Range Notes US Doppler Scan Arterial LE Left-[id number] Reviewed date:12/24/2023 09:38:41 AM Interpretation: Performing Lab: Notes/Report: This report was dictated at the [facility] FINAL REPORT Read This report was dict ated at the [facility] US Doppler Scan Arterial LE Left-61044 Reviewed date:12/31/2023 09:16:30 AM Interpretation: Performing Lab: Notes/Report: irx=[id number]=iSite abp=[id number]=iSite Reason For Referral No Information Medications Medication [...] atherosclerosis of artery of lower limb (disorder) (856457678) 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 (I70.245) Active confirmed Problem Chronic occlusion of artery of extremity (827916935) 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) Active confirmed Problem Peripheral vascular disease (994454805) Peripheral vascular disease, unspecified (I73.9) Active confirmed Problem S/P angioplasty with stent (Z95.820) Active confirmed Problem Peripheral vascular disease (759875334) Peripheral vascular disease (I73.9) Active confirmed Problem Diabetic peripheral neuropathy associated with type 2 diabetes mellitus (1022265314289) Type 2 diabetes mellitus with diabetic neuropathy, unspecified whether penitentiary insulin use (E11.40) Active confirmed Problem Intermittent claudication of bilateral lower limbs co-occurrent and due to atherosclerosis (finding) (76407301592093335 ) Atheroscler of cabazon artery of both legs with intermit claudication [...] 12/23/2023 Encounters Encounter Location Date Provider Diagnosis [facility] [address] [place] [address] 12/23/2023 [facility] [address] [place] [address] 06/22/2024 [facility] [address] [place] [address] 12/23/2023 Amy Carbone S/P angioplasty with stent Z95.820 ; Peripheral vascular disease I73.9 and Atheroscler of cabazon artery of both legs with intermit claudication I70.213 [facility] [address] [place] [address] 12/29/2023 Stuart Paulino Atheroscler of nativ e artery of both legs with intermit claudication I70.213 [facility] [address] [place] [address] 06/22/2024 Pia Bryan S/P angioplasty with stent Z95.820 ; Peripheral vascular disease I73.9 and 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 Educated on signs and symptoms of lower limb ischemia, and ER precautions. 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 Findings are consistent with moderate to severe atherosclerosis bilateral lower extremities with the left being worse than the right. 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 06/22/2024 S/P angioplasty with stent (ICD-10 - Z95.820) Follow-up in 6 months with ABIs in the clinic or sooner if needed. 06/22/2024 Peripheral vascular disease (ICD-10 - I73.9) Patient was instructed to call us with any questions or concerns, particularly any worsening of condition, This includes pain, swelling, change in color or development of sores in lower extremities, particularly on the left. 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 (ICD-10 - I70.213) Plan Of Treatment Pending Test Test Name Order Date US Ankle Brachial Pressure Index-[id number] 09/17/2023 Next Appt Details Provider Name:Stuart masters, 12/22/2024 12:45:00 PM, [address] [place] [address] [address] [place], [place], [address], Provider Name:Amy dias, 12/22/2024 01:15:00 PM, [address] [place] [address] [address] [place], [place], [address], Insurance Providers Payer Name Payer Address Payer Phone Subscriber Number Group Number Insured Name Patient Relationship to Insured Coverage Start Date Coverage End Date [facility] Medicare Advantage - PPO [address] [address] [place] [address] [id number] Pedro Pablo Beltran Self - patient is the insured for Life Secondary to Medicare [address] [place] [address] [id number] Pedro Pablo Beltran Self - patient is the insured Medical (General) History Medical History History ICD Code Diabetes Type 2 Hyperlipidemia Surgical History Surgery Date(Month/Year) Double Bypass Hernia Surgery Endovascular treatment of L lower extrem ity 08.28.2023 Hospitalization History Reason Date(Month/Year) ER Visit - Fall/stitches
--- OUTSIDE RECORDS SUMMARY | 2024-11-16 06:55 | XMS_ITS | Patient Health Record ---
Author Organization [facility] Address [address] [facility], [place] [id number] Care Team Providers Care Laboratory Apparatus Glass Blower Name Role Phone Fran Monroe DO Primary Care Provider Tanner Lopez Jr [phone] Allergies No Known Allergies Reason For Referral [...] neuropathy associated with type 2 diabetes mellitus (8439880095309) Type 2 diabetes mellitus with diabetic neuropathy, unspecified whether intermission coordinator insulin use (E11.40) Active confirmed Problem Pressure injury of toe of left foot (02246810751041 1) Pressure injury of skin of left foot, unspecified injury stage (L89.899) Active confirmed Vital Signs Respiratory Rate 22 /min 10/19/2024 Height 73 in 10/19/2024 Weight 169 lbs 10/19/2024 BMI 22.29 kg/m2 10/19/2024 Encounters Encounter Location Date Provider Diagnosis [facility] [address] [place] [address], [place] [id number] 12/23/2023 Tanner Morrow Jr Type 2 diabetes mellitus with diabetic neuropathy, unspecified whether intermission coordinator insulin use E11.40 ; Corns/callosities L84 ; Tinea unguium B35.1 ; Pain in left toe(s) M79.675 and Pain in right toe(s) M79.674 [facility] [address] [place] [address], [place] [phone] 03/02/2024 Tanner Morrow Jr Type 2 diabetes mellitus with diabetic neuropathy, unspecified whether intermission coordinator insulin use E11.40 ; Corns/callosities L84 ; Tinea unguium B35.1 ; Pain in left toe(s) M79.675 and Pain in right toe(s) M79.674 [facility] [address] [place] [address], [place] [phone] 05/11/2024 Tanner Morrow Jr Type 2 diabetes mellitus with diabetic neuropathy, unspecified whether intermission coordinator insulin use E11.40 ; Corns/callosities L84 ; Tinea unguium B35.1 ; Pain in left toe(s) M79.675 and Pain in right toe(s) M79.674 [facility] [address] [place] [address], [place] [phone] 08/04/2024 Tanner Morrow Jr Type 2 diabetes mellitus with diabetic neuropathy, unspecified whether fdc insulin use E11.40 ; Corns/callosities L84 ; Tinea unguium B35.1 ; Pain in left toe(s) M79.675 and Pain in right toe(s) M79.674 [facility] [address] [place] [address], [place] [phone] 10/19/2024 Tanner Morrow Jr Type 2 diabetes mellitus with diabetic neuropathy, unspecified whether fdc insulin use E11.40 ; Corns/callosities L84 ; Tinea unguium B35.1 ; Pain in left toe(s) M79.675 and Pain in right toe(s) M79.674 Assessments Encounter Date Diagnosis (ICD Code) Assessment Notes Treatment Notes Treatment Clinical Notes Section Notes 12/23/2023 Type 2 diabetes mellitus with diabetic neuropathy, unspecified whether intermission coordinator insulin use (ICD-10 - E11.40) 12/23/2023 Corns/callositie s (ICD-10 - L84) 03/02/2024 Type 2 diabetes mellitus with diabetic neuropathy, unspecified whether fdc insulin use (ICD-10 - E11.40) 03/02/2024 Corns/callositie s (ICD-10 - L84) 05/11/2024 Type 2 diabetes mellitus with diabetic neuropathy, unspecified whether fdc insulin use (ICD-10 - E11.40) 05/11/2024 Corns/callositie s (ICD-10 - L84) 08/04/2024 Type 2 diabetes mellitus with diabetic neuropathy, unspecified whether fdc insulin use (ICD-10 - E11.40) 08/04/2024 Corns/callositie s (ICD-10 - L84) Paring of 2 lesions performed on both feet with a #15 blade. Again discussed padding and offloading and DM shoes and inserts. 10/19/2024 Type 2 diabetes mellitus with diabetic neuropathy, unspecified whether fdc insulin use (ICD-10 - E11.40) 10/19/2024 Corns/callositie s (ICD-10 - L84) Paring of 4 lesions performed with a #15 blade. Again discussed padding and offloading and DM shoes and inserts. 10/19/2024 Tinea unguium (ICD-10 - B35.1) Discussed diabetic foot care, routine foot care, and intermission coordinator blood sugar control. Debridement of nails 1 through 5 bilateral down 2mm as close to normal thickness as possible using mechanical and manual means. Again advised the patient on preventative care. Patient to apply topical antifungals to the nails. 08/04/2024 Tinea unguium (ICD-10 - B35.1) Discussed diabetic foot care, routine foot care, and fdc blood sugar control. Debridement of nails 1 through 5 bilateral down 2mm as close to normal thickness as possible using mechanical and manual means. Again advised the patient on preventative care. Patient to apply topical antifungals to the nails. 05/11/2024 Tinea unguium (ICD-10 - B35.1) Discussed diabetic foot care, routine foot care, and fdc blood sugar control. Debridement of nails 1 [...] diabetic foot care, routine foot care, and fdc blood sugar control. Debridement of nails 1 [...] diabetic foot care, routine foot care, and intermission coordinator blood sugar control. Debridement of nails 1 [...] HOFFMANJenniffer Molina Jr, 12/28/2024 08:15:00 AM, [address], [place], [phone], Insurance Providers Payer Name Payer Address Payer Phone Subscriber Number Group Number Insured Name Patient Relationship to Insured Coverage Start Date Coverage End Date [employer] A[employer] Medicare Complete [address] [address] [place] [address] [id number] BESSY OWENS Self - patient is the insured 3 for Life Ins [address] [place] [address] [id number] BESSY OWENS Self - patient is the insured 3 Medical (General) History Medical History History ICD Code Back Pain DIABETIC Heart Attack High Cholesterol Numbness/Tingling in feet/toes shortness of breath Surgical History Surgery Date(Month/Year) hernia heart cath Hospitalization History Reason Date(Month/Year) 20 STITCHES IN HEAD DUE TO FALL 7.1.24
[2024-11-16] MEDS: heparin 5,000 unit/mL INJ 1 mL 5000 UNIT SUBCUT (09:05)
--- NOTE | 2024-11-16 09:14 | PC.CHAP ---
Pastoral Care Encounter/Spiritual Assessment Type of Contact [] Declined information security architect visit [] Patient/Family/Request visit [] Outpatient visit [] Follow-up visit [] Physician referral [] Code/Alert [x] Routine visit [] Staff referral [] Actively dying [] Patient sleeping [x] Family support [] [] Out of room [] Palliative care [] [] Receiving care in room [] Pre-surgical visit [] Trauma [] Long length of stay [] ICU visit [] Other: Relational/Emotional Strength [x] Patient feels connected with others/family/visitors/staff [] Distress [] Loneliness/isolation [] Abandonment Spirituality of Patient [x] Person of Kalina [] Attends Baptism of their [place] [x] Believes in Prayer [] Reads Bible or Jehovah'S Witness materials [] There are Spiritual issues to be addressed Insurance Adjuster Interventions [x] Prayer [x] Active listening [x] Non-anxious presence [x] Spiritual/emotional support [] Crisis/trauma care [] Spiritual counseling [] Bereavement support [] Provided bereavement packet [] Provided Bible/devotional materials [] Provided toy/stuffed animal, coloring book to patient or family member [] Provided Communion [] Anointing/Gruetli Laager [] Salvation [x] Completed spiritual assessment [] Other: Impact on Illness or Injury [] Angry [] Fearful [] Anxious [] Often cries [] Exhaustion [] Unable to work [] Unable to attend yarsanism [] Unable to walk/stand [] Unable to read [] Unable to drive [] Unable to eat/drink [] Unable to sleep [] Unable to be with family [] Patient intubated [] Other: Summary Time spent with patient 5 min
--- NOTE | 2024-11-16 11:24 | USCV_ITS ---
Pedro Pablo Berg Age: 84 Gender: M : 1940 Exam Date: 11/16/2024 13:55 Ordering Phys: Breana Ghosh MD Technologist: Exam Location[place] [facility] [place]: cva BP: / HR: 71 Rhythm: Sinus Technical Quality: Adequate MEASUREMENTS (Male / Female) Normal Values 2D ECHO LV Diastolic Diameter PLAX 4.4 cm 4.2 - 5.9 / 3.9 - 5.3 cm IVS Diastolic Thickness 1.3 cm 0.6 - 1.0 / 0.6 - 0.9 cm IVS Systolic Thickness 1.9 cm LVPW Diastolic Thickness 1.2 cm 0.6 - 1.0 / 0.6 - 0.9 cm LVPW Systolic Thickness 1.8 cm LVOT Diameter 2.1 cm LV Ejection Fraction 2D Teich 70.3 % LV Ejection Fraction MOD 4C 65.6 % LV Ejection Fraction MOD 2C 59.6 % LV Ejection Fraction 2C AL 61.0 % LA Diameter 4.4 cm RA Systolic Volume 4C AL 65.1 ml RA Systolic Volume 4C MOD 61.7 ml Aorta at Sinotubular Diameter 3.1 cm M-MODE LA Ao Ratio MM 1.0 AV Cusp Separation MM 2.2 cm DOPPLER AV Peak Velocity 138.0 cm/s LVOT Peak Velocity 96.0 cm/s AV Area Cont Eq vti 2.8 cm squared AV Area Cont Eq pk 2.5 cm squared MV Peak Velocity 97.0 cm/s TR Peak Velocity 125.0 cm/s TR Peak Gradient 6.3 mmHg TV Peak E Velocity 103.0 cm/s PV Peak Velocity 143.0 cm/s FINDINGS Left Ventricle Normal left ventricular size, systolic function and wall thickness, with no regional wall motion abnormalities. Left ventricular ejection fraction is estimated at 60 %. Grade I/IV diastolic dysfunction (abnormal relaxation filling pattern), normal to mildly elevated filling pressures. Right Ventricle Normal right ventricular size and systolic function. Right Atrium Normal right atrial size. Left Atrium Moderately increased left atrial size. IA Septum No [id number] shunt seen at the atrial level. No right-to- left shunt seen at the atrial level with contrast. Mitral Valve Mildly thickened mitral valve. No mitral valve stenosis. Trace mitral valve regurgitation. Aortic Valve Mild aortic valve calcification. No aortic valve stenosis. Trace aortic valve regurgitation. Tricuspid Valve Normal tricuspid valve structure. No tricuspid valve stenosis or regurgitation. Normal pulmonary pressure. Pulmonic Valve Normal pulmonic valve structure. No pulmonic valve stenosis or regurgitation. Pericardium No pericardial effusion. Aorta Normal diameter of the aortic root and ascending thoracic aorta. IVC Inferior vena cava not visualized. CONCLUSIONS Normal left ventricular size, systolic function and wall thickness, with no regional wall motion abnormalities. Left ventricular ejection fraction is estimated at 60 %. Grade I/IV diastolic dysfunction (abnormal relaxation filling pattern), normal to mildly elevated filling pressures. Moderately increased left atrial size. There is no pericardial effusion. No significant valvular abnormalities. Luke Evangelista MD (Electronically Signed) Final Date: 17 November 2024 11:43 S
--- NOTE | 2024-11-16 11:25 | MRR_ITS ---
PROCEDURE INFORMATION: Exam: MR Head Without Contrast Exam date and time: 11/16/2024 5:02 PM Age: 84 years old Clinical indication: Altered mental status/memory loss; Additional info: TIA TECHNIQUE: Imaging protocol: Magnetic resonance imaging of the head without contrast. COMPARISON: CT angio headneck* [id number] 11/15/2024 4:09 PM FINDINGS: Brain: There is prominent chronic periventricular white matter ischemic change that extends into the daily. There is a 4 mm focus of acute ischemia involving the left caudate nucleus. A 6 mm diameter focus of acute ischemia involving the subcortical white matter of the left centrum semiovale. A similar lesion involves the subcortical white matter of the left parieto-occipital lobe region. No evidence of hemorrhage or significant mass effect. Prominent diffuse cerebral atrophy is noted. Cerebral ventricles: Normal. No ventriculomegaly. Bones: Unremarkable. Paranasal sinuses: Normal as visualized. No acute sinusitis. Mastoid air cells: Normal as visualized. No mastoid effusion. Orbital cavities: Unremarkable. Soft tissues: Unremarkable. MR/MR head wo con* [id number] IMPRESSION: 1. Multiple foci of acute infarct involving the left MCA territory as detailed above. No hemorrhage noted. 2. Prominent cerebral atrophy with chronic white matter ischemic changes
--- NOTE | 2024-11-16 12:06 | PC.NURSE ---
cash applications coordinator rounds at 0745- gave patient stroke education book and we went over it together, answered all pts questions, pt verbalized understanding.
--- NOTE | 2024-11-16 18:39 | PM.PN ---
Subjective Subjective: He is feeling well. His facial droop and right upper extremity weakness have resolved. MRI head showed multiple foci of acute infarct involving the left MCA territory. He reports a history of irregular heart rate. Echocardiogram is pending. Vitals/I&O/Wt Last Vital Signs Temp 97.9 F 11/16/24 12:00 Pulse 68 11/16/24 16:57 Resp 11 L 11/16/24 16:57 BP 177/94 11/16/24 16:57 Pulse Ox 97 11/16/24 12:00 O2 Del Method Room Air 11/16/24 06:09 FiO2 21 11/16/24 06:09 11/16/24 11/16/24 11/16/24 06:59 14:59 22:59 Intake Total 240 / 1360 1959 / 1959 240 / 2200 Output Total 300 / 300 Balance -60 / 1060 1959 240 / 2200 Weight last 48 hrs Weight 89.811 kg Weight 90.1 kg Weight 86.183 kg Physical Exam Const: COMMON NORMALS: no acute distress, patient oriented x3 and alert GENERAL APPEARANCE: cooperative ORIENTATION/CONSCIOUSNESS: Yes awake HENMT: COMMON NORMALS: normocephalic, atraumatic and oropharynx normal HEAD & SCALP: normocephalic and atraumatic Eye: COMMON NORMALS: Equal, round and reactive pupils present and EOMs intact bilaterally PUPIL: Yes Equal, round and reactive pupils present Neck/C-Spine: COMMON NORMALS: supple and no JVD Resp: COMMON NORMALS: normal respiratory effort and clear to auscultation bilaterally AUSCULTATION: clear to auscultation bilaterally Cardio: COMMON NORMALS: no JVD, regular rhythm, S1 normal heart sound present, S2 normal heart sound present and No murmurs present (Cardio) RHYTHM: regular rhythm HEART SOUNDS: S1 normal heart sound present and S2 normal heart sound present GI: COMMON NORMALS: Normal to inspection, nondistended, normoactive bowel sounds present, Soft to palpation and non-tender PALPATION: Yes Soft to palpation : COMMON NORMALS: Yes no CVA tenderness BLADDER/KIDNEY EXAM: Yes no CVA tenderness Back/Pelvis: COMMON NORMALS: no CVA tenderness Extremity: COMMON NORMALS: no joint enlargement and no pedal edema Neuro: COMMON NORMALS: patient oriented x3, CN's II-XII intact bilaterally, moves all extremities, no focal motor deficits, no sensory deficits noted and deep tendon reflexes 2+ bilaterally SENSORIUM/ORIENTATION: Yes alert Psych: COMMON NORMALS: Normal thought process present and denies hallucinations THOUGHT PROCESS: Normal thought process present Skin: COMMON NORMALS: no rashes or lesions noted GENERAL SKIN EXAM: no rashes or lesions noted Data 11/16/24 01:26 11/16/24 01:26 A&P Assessment and plan 1. Acute CVA (cerebrovascular accident): Presented with right lower facial droop, garbled speech, and right upper extremity weakness. Symptoms resolved by the time he presented to the ER. ? CT head did not show any acute intracranial process ? MRI head today showed multiple foci of acute infarct involving the left MCA territory ? He reports a history of irregular heart rate; he had ventricular tachycardia after his CABG ? In December 2023 amatory heart monitoring noted episodes of upper chamber tachycardia approximately 40% of the time ? Telemetry here has been normal sinus rhythm ? Echocardiogram pending ? Will discuss findings with neurology ? Will give him a dose of therapeutic dose Lovenox tonight ? Continue Plavix and stop aspirin for now ? Continue atorvastatin ? Will send him home with Holter monitor tomorrow ? 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 Neurochecks every 4 hours ? Continue telemetry monitoring ? Goal blood pressure less than 140/90 mmHg 2. Occlusion of left vertebral artery: Thrombosis involving the sequestration of the left vertebral artery noted on CTA head and neck on admission 3. Acute kidney injury: Baseline creatinine around 1.2. Creatinine 2.1 on admission and has improved with IV fluids CTAP negative for obstructive nephropathy Holding valsartan and spironolactone for now Normal saline at 75 cc/h. Monitor serum creatinine avoid nephrotoxic meds 4. Type 2 diabetes mellitus: A1c was 8.3% on 11/15/2024 Insulin sliding scale at low-dose protocol. 5. Essential hypertension: Goal blood pressure less than 140/90 mmHg. Continue with home dose of amlodipine, Coreg at 6.25 mg twice daily. Holding losartan as above. Uptitrate as for goal blood pressure. 6. CAD (coronary artery disease): Status post CABG Complains of occasional chest heaviness on admission but has resolved. Last Lexiscan stress test back in December 2023 negative. Troponin essentially stable Plan: CODE STATUS: Daughter will be DPOA. DNR/DNI Carb consistent cardiac diet Protonix for PUD prophylaxis Therapeutic dose Lovenox PDMP PDMP Reviewed: Not Reviewed Attestations Medical Necessity Statement*: He requires continued hospitalization for IV fluids, telemetry monitoring, and neurochecks. Echo report also still pending. Coding Level of Care Code Acute Code for Chg Fwd Diagnoses Acute CVA (cerebrovascular accident) I63.9 Occlusion of left vertebral artery I65.02 Acute kidney injury N17.9 Type 2 diabetes mellitus E11.9 Essential hypertension I10 Hypertension type: essential hypertension CAD (coronary artery disease) I25.10
[2024-11-16] MEDS: pantoprazole 40 mg SDV IVP (20:43)
[2024-11-17] VITALS (13 sets, daily range): BP systolic 143–166; BP diastolic 71–73; PULSE 60–81; RESP 12–29; TEMP 36.6–37; O2SAT 94–96
[2024-11-17 04:17] LABS: Hematocrit 40.8 % (37-53); Hemoglobin 12.70 g/dL (11.27-16.99); Mean Corpuscular HGB Conc 31.1 g/dL (30-55); Mean Corpuscular Hemoglobin 28.8 pg (27-33); Mean Corpuscular Volume 92.5 fl (82-101); Nucleated Red Blood Cells % 0 %; Platelet Count 212 10^3/cmm (157-399); Red Blood Count 4.41 10^6/uL (3.85-5.65); White Blood Count 7.24 10^3/uL (3.29-11.43)
[2024-11-17 04:35] LABS: Alanine Aminotransferase 10 U/L (0-41); Albumin Level 3.2 g/dL (3.5-5.2); Alkaline Phosphatase 87 U/L (40-130); Aspartate Amino Transferase 14 U/L (0-40); Blood Urea Nitrogen 31 mg/dL (8-23); Calcium 8.5 mg/dL (8.5-10.5); Carbon Dioxide 23 mmol/L (22-29); Chloride 108 mmol/L (98-107); Creatinine Clr Calc Pharmacy 56.2500; Globulin 2.8 g/dL (1.3-4.6); Glucose 139 mg/dL (65-115); Magnesium 2.4 mg/dL (1.7-2.3); Osmolality Calculated 299 mOsm/kg (285-295); Sodium 140 mmol/L (136-145); Total Protein 6.0 g/dL (6.6-8.7)
[2024-11-17 04:39] LABS: Anion Gap 13.5 (5-19); Potassium 4.5 mmol/L (3.5-5.1)
--- NOTE | 2024-11-17 12:21 | PM.DCS ---
Discharge Providers Date of Admission: 11/15/24 18:32 Date of Discharge: November 17, 2024 Attending Provider at Admission: Andi Hamlin MD Attending Provider at Discharge: Breana Ghosh MD Consults: Consult to teleneurology Primary Care Provider: Fran Monroe DO Diagnoses at Discharge Discharge Diagnosis 1. Acute CVA (cerebrovascular accident): 2. Occlusion of left vertebral artery: 3. Acute kidney injury: 4. Type 2 diabetes mellitus: 5. Essential hypertension: 6. CAD (coronary artery disease): Reason for Visit Reason for Visit: Stroke Alert Brief History: This is an 84-year-old male with hypertension, type 2 diabetes, CAD status post CABG, and history of postoperative ventricular tachycardia who presented with strokelike symptoms. He reported not feeling well for a few days prior to admission. After visiting his at her halfway on the day of admission he was unable to use his seatbelts. Return to SNF who called EMS. He was noted to have right-sided facial droop and weakness in the right upper extremity. His symptoms had resolved by the time he arrived to the ED. Hospital Course Hospital Course He was initially thought to have had a TIA. CT head did not show any acute intracranial process. Left HEALTH SANITARIAN stenosis, 70% stenosis of the left carotid siphon, and thrombosis involving the distal portion of the left vertebral artery that may be acute. Teleneurology at [facility] recommended DAPT. MRI head done the next day showed multiple foci of acute infarct involving the left MCA territory. Telemetry did not show any atrial fibrillation. He was started on apixaban as his stroke was likely embolic. He was supposed to be on aspirin and Plavix at home. Aspirin has been discontinued. He was discharged home with the 30-day patient monitor. He will need to follow-up with cardiology and neurology. PT OT recommended home exercise program. Physical Exam Const: COMMON NORMALS: no acute distress, patient oriented x3 and alert GENERAL APPEARANCE: cooperative ORIENTATION/CONSCIOUSNESS: Yes awake HENMT: COMMON NORMALS: normocephalic, atraumatic and oropharynx normal HEAD & SCALP: normocephalic and atraumatic Eye: COMMON NORMALS: Equal, round and reactive pupils present and EOMs intact bilaterally PUPIL: Yes Equal, round and reactive pupils present Neck/C-Spine: COMMON NORMALS: supple and no JVD Resp: COMMON NORMALS: normal respiratory effort and clear to auscultation bilaterally AUSCULTATION: clear to auscultation bilaterally Cardio: COMMON NORMALS: no JVD, regular rhythm, S1 normal heart sound present, S2 normal heart sound present and No murmurs present (Cardio) RHYTHM: regular rhythm HEART SOUNDS: S1 normal heart sound present and S2 normal heart sound present GI: COMMON NORMALS: Normal to inspection, nondistended, normoactive bowel sounds present, Soft to palpation and non-tender PALPATION: Yes Soft to palpation : COMMON NORMALS: Yes no CVA tenderness BLADDER/KIDNEY EXAM: Yes no CVA tenderness Back/Pelvis: COMMON NORMALS: no CVA tenderness Extremity: COMMON NORMALS: no joint enlargement and no pedal edema Neuro: COMMON NORMALS: patient oriented x3, CN's II-XII intact bilaterally, moves all extremities, no focal motor deficits, no sensory deficits noted and deep tendon reflexes 2+ bilaterally SENSORIUM/ORIENTATION: Yes alert Psych: COMMON NORMALS: Normal thought process present and denies hallucinations THOUGHT PROCESS: Normal thought process present Skin: COMMON NORMALS: no rashes or lesions noted GENERAL SKIN EXAM: no rashes or lesions noted Discharge Data Studies Completed and Pending Completed Studies During Hospitalization Category Date Time Status CT abdomen pelvis wo con [id number] Stat Cat Scan 11/15/24 17:[address] angio headneck* [id number] Stat Cat Scan 11/15/24 16:[address] head thrombolytic [id number] Stat Cat Scan 11/15/24 16:05 Completed MR head wo con* [id number] Routine MRI 11/16/24 11:25 Completed CV. echo w/w bubble cont [id number] Routine Ultrasound 11/16/24 11:24 Completed Pending at discharge Category Date Time Status Complete Blood Count w/Auto AM LABS Lab 11/18/24 04:00 Ordered Comprehensive Metabolic Panel AM LABS Lab 11/18/24 04:00 Ordered Magnesium AM LABS Lab 11/18/24 04:00 Ordered Phosphorus AM LABS Lab 11/18/24 04:00 Ordered Radiology Impressions Head CT 11/15/24 16:05 IMPRESSION: No acute intracranial abnormality. ASSESSMENT: ASPECTS ([place] Stroke Program Early CT Score) is 10. ADDENDUM: 11/15/24 1437 THIS REPORT CONTAINS FINDINGS THAT MAY BE CRITICAL TO PATIENT CARE. The findings were verbally communicated via telephone conference with BLAS BOOKER at 4:22 PM CDT on 11/15/2024. The findings were acknowledged and understood. Head/Neck CTA 11/15/24 16:07 IMPRESSION: 1. Left HEALTH SANITARIAN stenosis 2. 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 This may be acute REFERENCES: NASCET CRITERIA. The degree of stenosis in the cervical segment of the internal carotid artery is based on NASCET criteria. Normal is no stenosis. Mild is less than 50% stenosis. Moderate is 50-69% stenosis. Severe is 70% to 99% stenosis. Total occlusion is no detectable patent lumen. ADDENDUM: 11/15/24 1901 COMMENT: THIS REPORT CONTAINS FINDINGS THAT MAY BE CRITICAL TO PATIENT CARE. The exam findings were verbally communicated by me to BLAS BOOKER via telephone conference at 4:55 PM CDT on 11/15/2024. The findings were acknowledged and understood. Abdomen/Pelvis CT 11/15/24 17:27 IMPRESSION: 1. No acute findings. 2. Cholelithiasis 3. Sigmoid diverticulosis 4. Bilateral inguinal hernia 5. Prostate enlargement with chronic bladder wall changes Head MRI 11/16/24 11:25 IMPRESSION: 1. Multiple foci of acute infarct involving the left MCA territory as detailed above. No hemorrhage noted. 2. Prominent cerebral atrophy with chronic white matter ischemic changes Laboratory Results WBC 7.24 10^3/uL (3.29-11.43) 11/17/24 03:05 RBC 4.41 10^6/uL (3.85-5.65) 11/17/24 03:05 Hgb 12.70 g/dL (11.27-16.99) 11/17/24 03:05 Hct 40.8 % (37-53) 11/17/24 03:05 MCV 92.5 fl (82-101) 11/17/24 03:05 MCH 28.8 pg (27-33) 11/17/24 03:05 MCHC 31.1 g/dL (30-55) 11/17/24 03:05 RDW 13.1 % (12.1-15.1) 11/17/24 03:05 Plt Count 212 10^3/cmm (157-399) 11/17/24 03:05 MPV 12.3 fL (7.4-10.4) H 11/17/24 03:05 Neut % (Auto) 62.4 % 11/17/24 03:05 Lymph % (Auto) 23.3 % 11/17/24 03:05 [place] % (Auto) 10.8 % 11/17/24 03:05 Eos % (Auto) 3.0 % 11/17/24 03:05 Baso % (Auto) 0.4 % 11/17/24 03:05 Neut # (Auto) 4.51 10^3/uL (1.8-7.7) 11/17/24 03:05 Lymph # (Auto) 1.7 10^3/uL (0.8-4.8) 11/17/24 03:05 [place] # (Auto) 0.8 10^3/uL (0.2-0.9) 11/17/24 03:05 Eos # (Auto) 0.2 10^3/uL (0.0-0.8) 11/17/24 03:05 Baso # (Auto) 0.0 10^3/uL (0.0-0.1) 11/17/24 03:05 Nucleated RBC % (auto) 0 % 11/17/24 03:05 Nucleated RBCs # 0.0 /100WBC 11/17/24 03:05 PT 13.20 SECONDS (12.1-14.9) 11/15/24 16:10 INR 0.94 (0.8-1.2) 11/15/24 16:10 APTT 26.3 SECONDS (23.9-36.7) 11/15/24 16:10 Sodium 140 mmol/L (136-145) 11/17/24 03:05 Potassium 4.5 mmol/L (3.5-5.1) 11/17/24 03:05 Chloride 108 mmol/L (98-107) H 11/17/24 03:05 Carbon Dioxide 23 mmol/L (22-29) 11/17/24 03:05 Anion Gap 13.5 (5-19) 11/17/24 03:05 BUN 31 mg/dL (8-23) H 11/17/24 03:05 Creatinine 1.1 mg/dL (0.7-1.2) 11/17/24 03:05 GFR Calculation Not Reportable 11/17/24 03:05 Glucose 139 mg/dL (65-115) H 11/17/24 03:05 POC Glucose 162 mg/dL (70-110) H 11/17/24 11:32 Estimat Average Glucose 192 11/15/24 16:10 Hemoglobin A1c 8.3 % (4.0-6.0) H 11/15/24 16:10 Calculated Osmolality 299 mOsm/kg (285-295) H 11/17/24 03:05 Lactic Acid 0.8 mmol/L (0.5-2.2) 11/15/24 19:03 Calcium 8.5 mg/dL (8.5-10.5) 11/17/24 03:05 Phosphorus 3.1 mg/dL (2.5-4.5) 11/17/24 03:05 Magnesium 2.4 mg/dL (1.7-2.3) H 11/17/24 03:05 Iron 136 ug/dL (59-158) 11/15/24 16:10 TIBC 338 mcg/dl 11/15/24 16:10 % Saturation 40.2 % (20-50) 11/15/24 16:10 Unsat Iron Binding 202 ug/dL (112-347) 11/15/24 16:10 Total Bilirubin 0.3 mg/dL (0.15-1.2) 11/17/24 03:05 AST 14 U/L (0-40) 11/17/24 03:05 ALT 10 U/L (0-41) 11/17/24 03:05 Alkaline Phosphatase 87 U/L (40-130) 11/17/24 03:05 Troponin T Baseline 46 ng/L (0-15) H 11/15/24 19:03 Troponin T 120 Minute 43.69 ng/L (0-15) H 11/15/24 21:11 Delta Troponin T -2.31 ABS# (0-10) L 11/15/24 21:11 Troponin T Hi Sens 6Hr 46.04 ng/L (0-15) H 11/16/24 01:26 Troponin T Hi Sens 6Hr Delta 0.04 ng/L (0-12) 11/16/24 01:26 Total Protein 6.0 g/dL (6.6-8.7) L 11/17/24 03:05 Albumin 3.2 g/dL (3.5-5.2) L 11/17/24 03:05 Globulin 2.8 g/dL (1.3-4.6) 11/17/24 03:05 Triglycerides 344 mg/dL (0-150) H 11/16/24 01: Cholesterol 217 mg/dL (0-200) H 11/16/24 01:26 LDL Cholesterol, Calc 120 mg/dL (50-129) 11/16/24 01: HDL Cholesterol 28 mg/dL (60-100) L 11/16/24 01: LDL/HDL Ratio 4.29 RATIO (0.00-3.22) H 11/16/24 01: Cholesterol/HDL Ratio 7.75 mg/dL (1.0-5.00) H 11/16/24 01:26 Vitamin B12 630 pg/mL (232-1245) 11/15/24 16:10 Folate 16.0 ng/mL (4.5-32.2) 11/16/24: Procalcitonin 0.10 ng/mL (0-0.5) 11/16/24: TSH 1.31 uIU/mL (0.27-4.20) 11/15/24 16:10 Urine Color Yellow (Yellow) 11/16/24 01:30 Urine Appearance Clear (CLEAR) 11/16/24 01:30 Urine pH 7.5 (5-7) 11/16/24 01:30 Ur Specific [place] 1.016 (1.005-1.030) 11/16/24 01:30 Urine Protein 4+ (Negative) A 11/16/24 01:30 Urine Glucose (UA) 2+ (Normal) H 11/16/24 01:30 Urine Ketones Negative (Negative) 11/16/24 01: Urine Blood Trace (Negative) A 11/16/24 01:30 Urine Nitrate Negative (Negative) 11/16/24 01:30 Urine Bilirubin Negative (Negative) 11/16/24 01:30 Urine Urobilinogen 0.2 mg/dL (Negative) 11/16/24 01:30 Ur Leukocyte Esterase Negative (Negative) 11/16/24 01:30 Urine RBC 0-4 /hpf (0-2) H 11/16/24 01:30 Urine WBC 0-4 /hpf (0-5) H 11/16/24 01:30 Ur Squamous Epith Cells Rare /hpf (0-5) 11/16/24 01:30 Amorphous Sediment Not Reportable 11/16/24 01:30 Urine Bacteria Trace /hpf (NONE) 11/16/24 01:30 Ur Random Sodium 56 mmol/L 11/16/24 01:30 Ur Random Potassium 35 mmol/L 11/16/24 01:30 Ur Random Chloride 35 mmol/L 11/16/24 01:30 Urine Creatinine 108 mg/dL (39-259) 11/16/24 01:30 Urine Opiates Screen Negative ng/mL (Negative) 11/16/24 01:30 Ur Barbiturates Screen Negative ng/mL (Negative) 11/16/24 01:30 Ur Phencyclidine Scrn Negative ng/mL (Negative) 11/16/24 01:30 Ur Amphetamines Screen Negative ng/mL (Negative) 11/16/24 01:30 U Benzodiazepines Scrn Negative ng/mL (Negative) 11/16/24 01:30 Urine Cocaine Screen Negative ng/mL (Negative) 11/16/24 01:30 U Marijuana (THC) Screen Negative ng/mL (Negative) 11/16/24 01:30 Vitals Last Vital Signs Temp 98.2 F 11/17/24 07:56 Pulse 60 11/17/24 07:56 Resp 21 H 11/17/24 07:56 BP 143/73 11/17/24 07:56 Pulse Ox 96 11/17/24 07:56 O2 Del Method Room Air 11/16/24 23:30 FiO2 21 11/16/24 06:09 Discharge Plan Discharge Patient Disposition: Home Condition: Stable Prescriptions: New Eliquis 5 mg Tablet 5 mg PO BID@0900,2100 Qty: 60 0RF atorvastatin [Lipitor] 40 mg tablet 40 mg PO QPM Qty: 30 0RF Continued amlodipine 10 mg tablet 10 mg PO DAILY Qty: 90 3RF valsartan 320 mg tablet 320 mg PO DAILY Qty: 90 3RF carvedilol 12.5 mg tablet 12.5 mg PO DIRECTED Qty: 315 3RF Rx Instructions: Take 25mg (2 tabs) in the AM and 18.75mg (1.5 tabs) in the PM. spironolactone 25 mg tablet 25 mg PO DAILY Qty: 90 3RF insulin glargine [Lantus Solostar U-100 Insulin] 100 unit/mL (3 mL) insulin pen See Rx Instructions .ROUTE .COMPLEX Rx Instructions: Inject 50 units subcutaneously in the am. Trulicity 1.5 mg/0.5 mL Pen Injector 1.5 mg SUBCUT Q7D Rx Instructions: clopidogrel 75 mg tablet 75 mg PO DAILY Discontinued aspirin [Aspir-81] 81 mg Tablet,Delayed Release (Dr/Ec) 81 mg PO QAM Discharge Order = DC NOW: Discharge Order (Routine); Ordered 11/17/24 Ordered By: Breana Ghosh Referrals: Marylu Sanchez MD [Physician, Neurology] - 1 month Referral Note: Patient is discharging now, UC will call with Neurology appt date and time Fran Monroe DO [Primary Care Provider, Family Practice] - 11/24/24 9:50 am Jaime Buckner MD [Physician, Cardiology] - 12/22/24 1:00 pm Discharge Diet: Diabetic Discharge Activity: Resume usual activity Patient Instructions: Apixaban (By mouth) (Eliquis), Acute Kidney Injury (DC), Opioid Safety, Patient Portal & Jerilyn Instructions Activity Restrictions/Additional Instructions: stop taking aspirin and take plavix only. Also started eliquis. Follow up with neurology in 4 weeks. Please wear patient monitor as directed. Monitor for bleeding including nose bleed, blood in urine, blood in stool, and black stool. Stop eliquis and notify physician if notice bleeding. Please follow home exercise program. Discharge Attestations Time Spent in Discharge Care*: greater than 30 min Quality Metrics Clinical Quality Measures [ Cerebrovascular Accident { Contraindication to Antithrombotic: None; antithrombotic prescribed; Contraindication to Anticoagulation: None; anticoagulation prescribed; Contraindication to Statin: None; Statin prescribed;}] Coding Level of Care Code 62245 Diagnoses Acute CVA (cerebrovascular accident) I63.9 Occlusion of left vertebral artery I65.02 Acute kidney injury N17.9 Type 2 diabetes mellitus E11.9 Essential hypertension I10 Hypertension type: essential hypertension CAD (coronary artery disease) I25.10
== END 2024-11-17 13:01 | disposition home or self-care (01) | DRG 65 ==
LOC: ER 17:40 → CSU 19:34
PROVIDERS: Admitting Provider Student in an Organized Health Care Education/Training Program; Emergency Provider Emergency Medicine; PCP Electrodiagnostic Medicine; Visit Provider Student in an Organized Health Care Education/Training Program
DX: I63.412 Cerebral infarction due to embolism of left middle cerebral artery (principal); N17.9 Acute kidney failure, unspecified; R29.810 Facial weakness; G83.21 Monoplegia of upper limb affecting right dominant side; I65.02 Occlusion and stenosis of left vertebral artery; E11.51 Type 2 diabetes mellitus with diabetic peripheral angiopathy without gangrene; I10 Essential (primary) hypertension; I25.10 Atherosclerotic heart disease of native coronary artery without angina pectoris; Z66 Do not resuscitate; I25.2 Old myocardial infarction; Z95.1 Presence of aortocoronary bypass graft; Z79.02 Long term (current) use of antithrombotics/antiplatelets; Z79.4 Long term (current) use of insulin; Z79.85 Long-term (current) use of injectable non-insulin antidiabetic drugs
CPT/HCPCS: 36415; 36416; 70450; 70496; 70498; 70551; 74176; 80053; 80061; 80306; 81001; 82436; 82570; 82607; 82746; 82962; 83036; 83540; 83550; 83605; 83735; 84100; 84133; 84145; 84300; 84443; 84484; 85025; 85610; 85730; 92523; 92610; 93005; 94664; 96360; 96372; 97116; 97161; 97165; 99285; C8929; J1644; J1650; J1815; J2270; J2470; J7030; J9999

== ENCOUNTER → 2024-12-22 11:17 | Outpatient (BNVA) | payer MEDICARE, OTHER, SELFPAY | PROVIDERS: PCP Electrodiagnostic Medicine; Visit Provider Internal Medicine Cardiovascular Disease | DX: I25.10 Atherosclerotic heart disease of native coronary artery without angina pectoris (principal); I10 Essential (primary) hypertension; I65.02 Occlusion and stenosis of left vertebral artery; Z95.1 Presence of aortocoronary bypass graft; Z86.73 Personal history of transient ischemic attack (TIA), and cerebral infarction without residual deficits; Z79.01 Long term (current) use of anticoagulants; I25.2 Old myocardial infarction | CPT/HCPCS: 99214 ==

== ENCOUNTER 2025-01-23 10:14 | Outpatient (CLI) | payer MEDICARE, OTHER, SELFPAY ==
--- NOTE | 2025-01-23 10:23 | MR_ITS ---
WS: [id number] MRI LEFT FOOT WITH AND WITHOUT CONTRAST. COMPARISON: None Multiplanar, multisequence imaging is performed with and without contrast. Sagittal and axial T1 fat sat sequences post-MultiHance 19 cc IV. History: Wound on LEFT first toe. No injury. Decreased T1 signal involving the terminal tuft of the first toe. There is increased T2 signal throughout the entire distal phalanx on the STIR sequence. There is diffuse enhancement throughout the distal first phalanx and the adjacent soft tissues. Focal soft tissue ulceration involving the very distal toe. There our no additional areas of abnormal enhancement. Mild hallux valgus deformity. No marrow edema or fractures within the remaining foot. Normal signal in the sesamoids at the first metatarsal head. There is a small amount of fluid surrounding the first metatarsal head. MR/MR foot LT wo/w con [id number] IMPRESSION: 1. Focal osteomyelitis involving the entire distal phalanx of the first toe wi th surrounding cellulitis. 2. Cellulitis extends to involve the soft tissues of the entire first toe. 3. Mild hallux valgus deformity. 4. No soft tissue abscess.
[2025-01-23] MEDS: gadobenate dimeglumine 20 mL vial IV (11:20)
== END 2025-01-23 10:15 | disposition home or self-care (01) ==
LOC: RAD 10:17
PROVIDERS: PCP Electrodiagnostic Medicine; Visit Provider Podiatrist Foot & Ankle Surgery
DX: M86.8X7 Other osteomyelitis, ankle and foot (principal); L03.032 Cellulitis of left toe; M20.12 Hallux valgus (acquired), left foot
CPT/HCPCS: 73720

== ENCOUNTER 2025-02-06 15:19 | Emergency (ER) | payer MEDICARE, OTHER, SELFPAY ==
--- OUTSIDE RECORDS SUMMARY | 2024-12-22 06:45 | XMS_ITS ---
Author Organization [facility] Address [address] [place] [address] Care Team Providers Care Manager Bakery Name Role Phone Fran Monroe DO Primary Care Provider Unavail able Stuart Paulino Unavailable [phone] REASON FOR VISIT 6 month f/u ABIs hx of Angioplasty of superficial femoral and popliteal arteries w/ Stent placementsuperficial femoral and popliteal arteries w/ Viabahn stent graft on 08/28/2023 Dr Paulino Encounters Encounter Location Date Provider Diagnosis [facility] [address] [place] [address] 12/22/2024 Stuart Paulino Plan Of Treatment No Information Progress Notes * Pedro Pablo MCGRAW HDOB:07/1940 (84 yo M)Acc No.[id number]:12/22/2024 Patient: Pedro Pablo Charles Provider: Yasmin Paulino MD :1940 A ge:84 Y S ex:Male Date:12/22/2024 Address:[address] [id number] Pcp:Fran Monroe DO Subjective: * Chief Complaints: * 6 month f/u ABIs hx of Angioplasty of superficial femoral and popliteal arteries w/ Stent placement superficial femoral and popliteal arteries w/ Viabahn stent graft on 08/28/2023 Dr Paulino * Electronic signature of Humaira Paulino MD on 02/06/2025 at 03:30 PM REAL ESTATE LEGAL SECRETARY Sign off status: Pending * Provider: Yasmin Paulino MD Date: 02/22/2024 Generated for Felice lozano/Davian/Megan on: 1 03:30 PM REAL ESTATE LEGAL SECRETARY
--- OUTSIDE RECORDS SUMMARY | 2024-12-22 07:15 | XMS_ITS ---
Author Organization [facility] Address [address] [place] [address] Care Team Providers Care Advertising Consultant Name Role Phone Fran Monroe DO Primary Care Provider Unavail able Stuart Paulino Unavailable [phone] Amy Carbone Unavailable [phone] REASON FOR VISIT 6 month f/u ABIs hx of Angioplasty of superficial femoral and popliteal arteries w/ Stent placementsuperficial femoral and popliteal arteries w/ Viabahn stent graft on 08/28/2023 Dr Paulino Encounters Encounter Location Date Provider Diagnosis [facility] [address] [place] [address] [address] [place] [address] 12/22/2024 Amy Carbone Plan Of Treatment No Information Progress Notes * Pedro Pablo MCGRAW HDOB:07/1940 (84 yo M)Acc No.[id number]:12/22/2024 Progress Notes Patient: Pedro Pablo Charles Provider: Pollo Carbone CNP :1940 A ge:84 Y S ex:Male Date:12/22/2024 Address:[address] [id number] Pcp:Fran Monroe DO Subjective: * Chief Complaints: * 6 month f/u ABIs hx of Angioplasty of superficial femoral and popliteal arteries w/ Stent placement superficial femoral and popliteal arteries w/ Viabahn stent graft on 08/28/2023 Dr Paulino Care Plan Details* * Electronic signature of John Carbone CNP on 02/06/2025 at 03:31 PM SUPERVISOR AGENCY APPOINTMENTS Sign off status: Pending * Provider: Pollo Carbone CNP Date: 1 02/22/2024 Generated for Felice lozano/Davian/Megan on: 03:31 PM SUPERVISOR AGENCY APPOINTMENTS
--- OUTSIDE RECORDS SUMMARY | 2025-01-09 03:15 | XMS_ITS ---
Author Organization [facility] Address [address] [place] [address] Care Team Providers Care Medical Or Surgical Instrument Maker Name Role Phone Fran Monroe DO Primary Care Provider Unavail able Stuart Paulino Unavailable [phone] REASON FOR VISIT 6 month f/u ABIs hx of Angioplasty of superficial femoral and popliteal arteries w/ Stent placementsuperficial femoral and popliteal arteries w/ Viabahn stent graft on 08/28/2023 Dr Paulino Encounters Encounter Location Date Provider Diagnosis [facility] [address] [place] [address] 01/09/2025 Stuart Paulino Plan Of Treatment No Information Progress Notes * Pedro Pablo MCGRAW HDOB:07/1940 (84 yo M)Acc No.[id number]:01/09/2025 Patient: Pedro Pablo Charles Provider: Yasmin Paulino MD :1940 A ge:84 Y S ex:Male Date:01/09/2025 Address:[address] [id number] Pcp:Fran Monroe DO Subjective: * Chief Complaints: * 6 month f/u ABIs hx of Angioplasty of superficial femoral and popliteal arteries w/ Stent placement superficial femoral and popliteal arteries w/ Viabahn stent graft on 08/28/2023 Dr Paulino Billing Information: * Procedure Codes: * Electronic signature of Humaira Paulino MD on 02/06/2025 at 03:31 PM HEART SPECIALIST Sign off status: Pending * Provider: Yasmin Paulino MD Date: 03/12/2024 Generated for Felice lozano/Davian/Megan on: 03:31 PM HEART SPECIALIST
--- OUTSIDE RECORDS SUMMARY | 2025-01-18 04:30 | XMS_ITS ---
Author Organization [facility] Address [address] [place] [address] Care Team Providers Care Train Announcer Name Role Phone Fran Monroe DO Primary Care Provider Unavail able Stuart Paulino Unavailable [phone] REASON FOR VISIT f/u ct before Encounters Encounter Location Date Provider Diagnosis [facility] [address] [place] [address] 01/18/2025 Stuart Paulino Plan Of Treatment No Information Progress Notes * Pedro Pablo MCGRAW HDOB:07/1940 (84 yo M)Acc No.[id number]:01/18/2025 Progress Notes Patient: Pedro Pablo Charles Provider: Yasmin Paulino MD :1940 A ge:84 Y S ex:Male Date:01/18/2025 Address:[facility] [address] [id number] Pcp:Fran Monroe DO Subjective: * Chief Complaints: * F /u ct before Billing Information: * Procedure Codes: Care Plan Details* * Electronic signature of Humaira Paulino MD on 02/06/2025 at 03:31 PM BUFFING LINE SET UP WORKER Sign off status: Pending * Provider: Yasmin Paulino MD Date: 03/21/2024 Generated for Hansi ng/Fasonja/eTransmitting on: 03:31 PM BUFFING LINE SET UP WORKER
--- OUTSIDE RECORDS SUMMARY | 2025-01-25 02:30 | XMS_ITS ---
Author Organization [facility] Address [address] [place], [place] [id number] Care Team Providers Care Clinical Trials Assistant Name Role Phone Fran Monroe DO Primary Care Provider Unavail Tanner Ortiz Jr [phone] REASON FOR VISIT FU ULCER,DISCUSS MRI RESULTS Social History Tobacco Use: Social History Observation Description Date Details (start date - stop date) Never Smoker NA - NA Tobacco Control (Standard) Question Answer Notes Tobacco use: Nonsmoker Additional Findings: Tobacco non-user Current no nsmoker Vital Signs Respiratory Rate 22 /min 01/25/2025 Weight 169 lbs 01/25/2025 Height 73 in 01/25/2025 BMI 22.29 kg/m2 01/25/2025 Encounters Encounter Location Date Provider Diagnosis [facility] [address] [place] [phone] 01/25/2025 Tanner Morrow Jr Type 2 diabetes mellitus with diabetic neuropathy, unspecified whether ocean transportation intermediary insulin use E11.40 ; Corns/callosities L84 ; Tinea unguium B35.1 ; Pain in left toe(s) M79.675 ; Pain in right toe(s) M79.674 ; Pressure injury of skin of toe of left foot, unspecified injury stage L89.899 ; Toe osteomyelitis M86.9 and PVD (peripheral vascular disease) I73.9 Assessments Encounter Date Diagnosis (ICD Code) Assessment Notes Treatment Notes Treatment Clinical Notes Section Notes 01/25/2025 Type 2 diabetes mellitus with diabetic neuropathy, unspecified whether ocean transportation intermediary insulin use (ICD-10 - E11.40) 01/25/2025 Corns/callosities (ICD-10 - L84) 01/25/2025 Tinea unguium (ICD-10 - B35.1) 01/25/2025 Pain in left toe(s) (ICD-10 - M79.675) 01/25/2025 Pain in right toe(s) (ICD-10 - M79.674) 01/25/2025 Pressure injury of skin of toe of left foot, unspecified injury stage (ICD-10 - L89.899) Discussed treatment, risks and complications. Using a 15 blade and sharp debridement, excisional debridement of ulcer to and including full thickness and subcutaneous tissue to good granular base with goals of pressure relief and infection control of the ulceration on the left great toe. Offloading bandage applied. Discussed continued padding and offloading in detail with the patient. Discussed MRI results with the patient. Discussed surgical intervention in detail with the patient, including amputation of the toe, and the risks, complications and post operative care. Recommended he see a vascular surgeon. Will refer patient to Dr. Barahona. 01/25/2025 Toe osteomyelitis (ICD-10 - M86.9) 01/25/2025 PVD (peripheral vascular disease) (ICD-10 - I73.9) Plan Of Treatment Treatment Notes Assessment Notes Pressure injury of skin of t oe of left foot, unspecified injury stage Discussed treatment, risks and complications. Using a 15 blade and sharp debridement, excisional debridement of ulcer to and including full thickness and subcutaneous tissue to good granular base with goals of pressure relief and infection control of the ulceration on the left great toe. Offloading bandage applied. Discussed continued padding and offloading in detail with the patient. Discussed MRI results with the patient. Discussed surgical intervention in detail with the patient, including amputation of the toe, and the risks, complications and post operative care. Recommended he see a vascular surgeon. Will refer patient to Dr. Barahona. Next Appt Details Follow Up: 1-2 weeks, Reason : Provider Name:Tanner Molina Jr, 02/21/2025 09:45:00 AM, [address] [place] [address], [phone], Provider Name:Tanner Molina Jr, 03/08/2025 08:15:00 AM, [address] [place] [address], [phone], Progress Notes * BESSY MCGRAW HDOB:07/1940 (84 yo M)Acc No.[id number]:01/25/2025 Progress Notes Patient: BESSY HERNANDEZ Provider: Denise Morrow DPM, PA :1940 A ge:84 Y S ex:Male Date:01/25/2025 Address:[facility] [address] [id number] Pcp:Fran Monroe, Subjective: * Chief Complaints: * 1 . FU ULCER,DISCUSS MRI RESULTS. * HPI: D iabetic Nail Care: Patient returns to clinic for follow up of a sore on his left big toe. He is here to discuss the MRI results. Home Health has been helping with dressing changes. H e denies changes in medical history. * Medical History: B ack Pain, DIABETIC, Heart Attack, High Cholesterol, Numbness/Tingling in feet/toes, Shortness of breath. * Surgical History: ashely asencio , heart cath . * Hospitalization/Major Diagno stic Procedure: 2 0 STITCHES IN HEAD DUE TO FALL 7. * Social History: T obacco Use: T obacco Control (Standard) T obacco use: N onsmoker A dditional Findings: Tobacco non-user C urrent nonsmoker * Medications: N one Objective: * Vitals: R R: 22 /min, Wt: 169 lbs, Ht: 73 in, BMI: 22.29 Index. * Examination: G eneral Examination: Foot exam: L ower Extremity Neurological Exam performed:?Yes F ootwear Evaluation performed: Y es D P and PT barely p alpable, temperature tone turgor within normal limits, neurological sensation decreased, hair growth is decreased, musculoskeletal strength +5/5 bilateral lower extremities. Nails 1-5 bilateral are thickened, dystrophic and discolored. Pigmentary changes with nail changes with edema and paresthesias bilateral. Skin atrophy noted to the lower legs. Thickened hyperkeratotic tissue noted to the 5th MPJs and 1st MPJs bilateral. Medially deviated 5th digits with contracted digits 2-5 bilateral. Tailor's bunion bilaterally. Slightly laterally deviated hallux bilaterally, fat pad atrophy noted bilaterally. On the left great toe, there is an ulceration that after removal of all necrotic and fibrotic tissue measures 4mm x 3mm x 4mm. Probes to bone. Some erythema and edema. Minimal serous drainage. MRI reveals osteomyelitis. Assessment: * Assessment: 1. T ype 2 diabetes mellitus with diabetic neuropathy, unspecified whether ocean transportation intermediary insulin use - E11.40 (Primary) 2 . C orns/callosities - L84 3 . T inea unguium - B35.1 4 . P ain in left toe(s) - M79.675 5 . P ain in right toe(s) - M79.674 6 . P ressure injury of skin of toe of left foot, unspecified injury stage - L89.899 7 . T oe osteomyelitis - M86.9 8 . P VD (peripheral vascular disease) - I73.9 Plan: * Treatment: * Preventive Medicine: Screenings: F all risk screening Fall Risk Assessment: N o falls in the past year * Follow Up: 1 -2 weeks * Billing Information: * Visit Code: * Procedure Codes: * Electronic signature of Michela Morrow Jr, DPM on 02/06/2025 at 03:31 PM TUNNEL ELASTIC OPERATOR LOCKSTITCH Sign off status: Pending * Provider: Denise Morrow DPM, PA Date: 03/28/2024 Generated for Felice lozano/Davian/Shamekaitting on: 03:31 PM TUNNEL ELASTIC OPERATOR LOCKSTITCH History and Physical Notes * HPI (History of Present Illness) Category Sub-Category Detail Notes Category Not es Diabetic Nail Care Patient bibi eturns to clinic for follow up of a sore on his left big toe. He is here to discuss the MRI results. Home Health has been helping with dressing changes. He denies changes in medical history. Examination Category Sub-Category Detail Notes Category Not es General Examination Foot exam: Lower Extrem ity Neurological Exam performed:: Yes DP and PT barely palpable, temperature tone turgor within normal limits, neurological sensation decreased, hair growth is decreased, musculoskeletal strength +5/5 bilateral lower extremities. Nails 1-5 bilateral are thickened, dystrophic and discolored. Pigmentary changes with nail changes with edema and paresthesias bilateral. Skin atrophy noted to the lower legs. Thickened hyperkeratotic tissue noted to the 5th MPJs and 1st MPJs bilateral. Medially deviated 5th digits with contracted digits 2-5 bilateral. Tailor's bunion bilaterally. Slightly laterally deviated hallux bilaterally, fat pad atrophy noted bilaterally. On the left great toe, there is an ulceration that after removal of all necrotic and fibrotic tissue measures 4mm x 3mm x 4mm. Probes to bone. Some erythema and edema. Minimal serous drainage. MRI reveals osteomyelitis. Footwear Evaluation performed:: Yes
--- OUTSIDE RECORDS SUMMARY | 2025-01-30 06:00 | XMS_ITS ---
Author Organization [facility] Address [address] [place] [address] Care Team Providers Care Yarn Salvager Name Role Phone Monroe Fran Primary Care Provider Unavail able Stuart Paulino Unavailable [phone] Mushtaq Barahona JR Unavailable [phone] Results Component Value Reference Range Flag Notes CBC w\ Auto Diff [id number] (Not yet reviewed by provider) Interpretation: Performing Lab: Notes/Report: Diagnosis Description: Osteomyelitis, unspecified WBC 8.2 4.5-11.0 X10'3 RBC 4.62 4.50-5.90 X10'6 Hgb 13.0 13.5-17.5 G/DL LOW Hct 42.1 41.0-53.0 % MCV 91.1 80.0-100.0 FL MCH 28.1 27.0-31.0 PG MCHC 30.9 31.0-37.0 G/DL LOW Platelet 311 150-400 X10'3 RDW-SD 46.8 35.0-49.0 FL RDW-CV 13.8 12.2-15.6 % MPV 11.1 9.2-12.0 FL Neutro Auto% 67.9 40.0-70.0 % Lymph Auto% 21.2 22.0-44.0 % LOW Luce Auto% 8.0 3.0-7.0 % HI Eos Auto% 2.5 2.0-4.0 % Baso Auto% 0.2 0.0-1.0 % Imm Gran% .2 .0-.4 % Neutro Abs 5.53 .80-7.70 Absolute Neutrophil Count 5530 NA Lymph Abs 1.73 .10-4.10 Luce Abs .65 .20-1.00 Eos Abs .20 .00-.40 Baso Abs .02 .00-.20 Imm Gran Abs .02 .00-.10 NRBC# .00 .00-.20 NRBC% .00 .00-.20 /100 int act WBC's Comprehensive Metabolic Pane l (CMP) 48432 (Not yet reviewed by provider) Interpretation: Performing Lab: Notes/Report: Diagnosis Description: Osteomyelitis, unspecified Glucose Serum 242 71-110 MG/DL HI Testing p erformed at [facility], [address] [place] [address] [address] [place] [address]. CLIA ID#: [id number] BUN 27 7-21 MG/DL HI Creat 1.14 .57-1.17 MG/DL Y-kqfuft-g-benzoquinone imine (NAPQI) is a metabolite of acetaminophen, NAPQI concentrations of apparoximately 10 mg/L correlation to toxic levels of acetaminophen demonstrates a greater than or equil to 10% change in results. NAPQI concentrations greater than this may lead to falsely depressed results for patient samples. Use of this assay is not recommended for patients undergoing treatment with phenindione, due to the potential for falsely depressed results. GFR 62.6 NA Calculation pe rformed from GFR calculator provided by the [employer]. Glomerular Filtration rate(GRF) is the best overall index of kidney function. Normal GFR varies according to age,sex, body size, and declines with age. The [employer] recommends using the CKD-EPI Creatinine Equation(202) to estimate GFR. BUN/Creat Ratio 23.7 12.0-20.0 % HI Total Protein 6.2 5.8-8.0 G/DL Albumin 3.9 3.2-4.8 G/DL Globulin 2.3 2.3-3.5 G/DL Alb/Glob 1.7 0.8-2.2 Calcium 8.9 8.7-10.4 MG/DL Sodium 143 136-145 MMOL/L Potassium 4.5 3.5-5.1 MMOL/L Chloride 105 98-107 MMOL/L CO2 27.9 20.0-31.0 MMOL/L Anion Gap 15 5-15 Alk Phos 109 46-116 Bili Total .3 .3-1.2 MG/DL Use of this assay is not recommended for patients undergoing treatment with eltrombopag due to the potential for falsely elevated results. AST/SGOT 26 15-37 UNIT/L ALT/SGPT 30 12-78 UNIT/L Osmo Serum,Calculated 309 280-300 MOSM/KG [place] CRP 58100 (Not yet reviewed by provider) Interpretation: Performing Lab: Notes/Report: Diagnosis Description: Osteomyelitis, unspecified CRP <.50 .40-1.00 MG/DL REASON FOR VISIT [id number] Osteomyelitis Medications Medication SIG (Take, Route, Frequency, Duration) Notes Start Date End Date Status Carvedilol 6.25 MG Tablet 1 tablet with food Orally Twice a day Active Atorvastatin Calcium 40 MG Tablet 1 tablet Orally Once a day Active Clopidogrel Bisulfate 75 MG Tablet 1 tablet Orally Once a day; Duration: 90 days 08/20/2023 Active Insulin Aspart 50 units Activ e Jardiance 10 MG Tablet 1 tablet Orally O nce a day Active Aspirin 81 MG Tablet Delayed Release 1 tablet Orally Once a day Active Trulicity Active Valsartan 160 MG Tablet 1 tablet Orally Once a day Active Linezolid 600 MG Tablet 1 tablet Orally every 12 hrs; Duration: 14 days 01/30/2025 02/13/2025 Active Cipro 500 MG Tablet 1 tablet Orally ever y 12 hrs; Duration: 14 days 01/30/2025 02/27/2025 Active Social History Tobacco Use: Social History Observation Description Date Details (start date - stop date) Never Smoker NA - NA Social History Tobacco Use: Social Info Question Answer Notes Tobacco Control (Standard) Tobacco use: Nonsmoker Vital Signs Temperature 97.5 degrees Fahrenheit 01/31/20 25 Blood pressure systolic 158 mm Hg 01/31/20 25 Blood pressure diastolic 88 mm Hg 025 Heart Rate 78 /min 01/30/2025 Height 73 in 01/30/2025 Weight 190.7 lbs 01/30/2025 BMI 25.16 kg/m2 01/30/2025 Oximetry 95 % 01/30/2025 Height-cm 185.42 cm 01/30/2025 Weight-kg 86.5 kg 01/30/2025 Encounters Encounter Location Date Provider Diagnosis [facility] Internal Medicine & Infectious Disease [address] [place] [phone] 01/30/2025 Mushtaq Venturay Osteomyelitis M86.9 Assessments Encounter Date Diagnosis (ICD Code) Assessment Notes Treatment Notes Treatment Clinical Notes Section Notes 01/30/2025 Osteomyelitis (ICD-10 - M86.9) 1. 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 - by patient history he had an MRI at [facility] that revealed bone infection - check lab - place PICC and begin IV antibiotics 2. 01-30-25 antibiotics: [employer] has denied PICC, and IV antibiotics, we are appealing this decision. GAP EXTENSION FORM/PA FOR PICC PLACEMENT HAS BEEN INITIATED. CASE# [id number] - begin zyvox, and cipro 01-30-25 3. PAd - ; angioplasty - refer back to Dr. 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 f/u 1 week Plan Of Treatment Medication Medication Name Sig Start Date Stop Date Notes Linezolid 600 MG Tablet 1 tablet Orally every 12 hrs; Duration: 14 days 01/30/2025 02/13/2025 Cipro 500 MG Tablet 1 tablet Orally ever y 12 hrs; Duration: 14 days 01/30/2025 02/27/2025 Pending Test Test Name Order Date CBC w\ Auto Diff [id number] 01/30/2025 Comprehensive Metabolic Panel (CMP) 8005 3 01/30/2025 CRP 22131 01/30/2025 Next Appt Details Follow Up: 1 Week, Reason: History and Physical Notes * HPI (History of Present Illness) Category Sub-Category Detail Notes Category Not es Provider Note history of PAd s/p vascular procedure now 2-3 months of ulceratyion on his left 1st toe ; patient had PICC and antibiotics denied Examination Category Sub-Category Detail Notes Category Not es General Examination GENERAL APPEARANCE: alert, w ell hydrated, in no distress HEAD: normocephalic, atrau matic HEART: regular rate and rhy thm, S1, S2 normal, no heaves, lifts or gallops. PMI at/near 5th left intercostal space at anterior axillary line CHEST: atraumatic, no defor mities, no pain to palpation LUNGS: clear anteriorly and posteriorly ABDOMEN: bowel sounds present , soft, nontender, nondistended NEUROLOGIC: alert and oriented, cerebellar function normal, cognitive exam grossly normal, gait normal left leg with 1st toe excoriation, some hypertrophy, ischemic ulcerations Progress Notes * Pedro Pablo MCGRAW HDOB:07/1940 (84 yo M)Acc No.[id number]:01/30/2025 Progress Notes Patient: Pedro Pablo Charles Provider: Jordan Barahona MD :1940 A ge:84 Y S ex:Male Date:01/30/2025 Address:[facility] [address] [id number] Pcp:Fran Monroe DO Check Out:01:28 PM BUYER AGENT Subjective: * Chief Complaints: * [id number] Osteomyelitis * HPI: P rovider Note: history of PAd s/p vascular procedure now 2-3 months of ulceratyion on his left 1st toe ; patient had PICC and antibiotics denied. * ROS: G eneral - Multi System: Constitutional D enies, fever, chills, weakness, fatigue, poor appetite, unexplained weight loss. E ar, Nose, Mouth, Throat D enies, ear pain, sore throat, sinus congestion, nasal drainage. C ardiovascular D enies any recent chest pain, palpitations or syncope. R espiratory D enies any shortness of breath, cough, or hemoptysis. G astrointestinal D enies heartburn, constipation, diarrhea, nausea, blood in stools, or abdominal pain. G enitourinary D enies dysuria, urinary frequency, or hematuria. M usculoskeletal D enies any joint pain or swelling, no recent trauma. I ntegumentary?Denies any rashes, bruising, or skin changes. * Medical History: Diabetes Type 2 Hyperlipidemia Medical History Verified * Surgical History: Double Bypass Hernia Surgery Endovascular treatment of L lower extremity 08.28.2023 Surgical History verified. * Hospitalization/Major Diagno stic Procedure: ER Visit - Fall/stitches Hospitalization Verified. * Family History: F ather: , Old age. M other: , Old age. F amily History Verified..? * Social History: T obacco Use: T obacco Control (Standard) T obacco use: N onsmoker S ocial History Verified. * Medications: T akingAspirin 81 MG Tablet Delayed Release 1 tablet Orally Once a day Atorvastatin Calcium 40 MG Tablet 1 tablet Orally Once a day Carvedilol 6.25 MG Tablet 1 tablet with food Orally Twice a day Clopidogrel Bisulfate 75 MG Tablet 1 tablet Orally Once a day Insulin Aspart , Notes to Pharmacist: 50 unitsJardiance 10 MG Tablet 1 tablet Orally Once a day Trulicity Valsartan 160 MG Tablet 1 tablet Orally Once a day Medication List reviewed and reconciled with the patientTaking Aspirin 81 MG Tablet Delayed Release 1 tablet Orally Once a day Taking Atorvastatin Calcium 40 MG Tablet 1 tablet Orally Once a day Taking Carvedilol 6.25 MG Tablet 1 tablet with food Orally Twice a day Taking Clopidogrel Bisulfate 75 MG Tablet 1 tablet Orally Once a day Taking Insulin Aspart , Notes to Pharmacist: 50 unitsTaking Jardiance 10 MG Tablet 1 tablet Orally Once a day Taking Trulicity Taking Valsartan 160 MG Tablet 1 tablet Orally Once a day Medication List reviewed and reconciled with the patient * Allergies: y esAllergies Verified. Objective: * Vitals: H t: 73 in, Wt:190.7lbs, Wt-k.5 kg, BMI:25.16Index, Temp:97.5F, BP:158/88mm Hg, HR:78/min, Oxygen sat %:95%, Ht-cm: 185.42 cm. * Examination: G eneral Examination: GENERAL APPEARANCE: a lert, well hydrated, in no distress.? HEAD: n ormocephalic, atraumatic. HEART: r egular rate and rhythm, S1, S2 normal, no heaves, lifts or gallops. PMI at/near 5th left intercostal space at anterior axillary line. LUNGS: c lear anteriorly and posteriorly. CHEST: a traumatic, no deformities, no pain to palpation.? ABDOMEN: b owel sounds present, soft, nontender, nondistended. NEUROLOGIC: a lert and oriented, cerebellar function normal, cognitive exam grossly normal, gait normal left leg with 1st toe excoriation, some hypertrophy, ischemic ulcerations. Assessment: * Assessment: 1. O steomyelitis - M86.9 (Primary) 1. 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 - by patient history he had an MRI at [facility] that revealed bone infection - check lab - place PICC and begin IV antibiotics 2. 1 04-02-24 a ntibiotics: [employer] has denied PICC, and IV antibiotics, we are appealing this decision.? G AP EXTENSION FORM/PA FOR PICC PLACEMENT HAS BEEN INITIATED. CASE# [id number] - begin zyvox, and cipro 01-30-25 3. ; angioplasty - refer back to Dr. 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 f/u 1 week Plan: * Treatment: * Procedure Codes: 3 079F DIAST BP 80-89 MM HG * Follow Up: 1 Week Billing Information: * Procedure Codes: 3079F DIAST BP 80-89 MM HG. Care Plan Details* * Electronic signature of Dino Barahona JR, MD on 02/06/2025 at 03:32 PM BUYER AGENT Sign off status: Pending * Provider: Jordan Barahona MD Date: 04/02/2024 Generated for Felice lozano/Davian/Shamekaitting on: 03:32 PM BUYER AGENT
--- OUTSIDE RECORDS SUMMARY | 2025-01-31 03:00 | XMS_ITS ---
Author Organization [facility] Address [address] [facility] [place] [address] Care Team Providers Care Practice Professional Name Role Phone Monroe Kishor TOVARk Primary Care Provider Unavail able Stuart Paulino Unavailable [phone] Shaunna Rubio Unavailable [phone] REASON FOR VISIT [id number] 1 week f/u - Left Toe Ulcer Encounters Encounter Location Date Provider Diagnosis [facility] Internal Medicine & Infectious Disease [address] [facility] [place] [address] 01/31/2025 Shaunna Rubio Osteomyelitis M86.9 Assessments Encounter Date Diagnosis (ICD Code) Assessment Notes Treatment Notes Treatment Clinical Notes Section Notes 01/31/2025 Osteomyelitis (ICD-10 - M86.9) 1. 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 - by patient history he had an MRI at [facility] that revealed bone infection - check lab - place PICC and begin IV antibiotics 2. antibiotics: begin dapto, and fortaz 3. PAd - ; angioplasty - refer back to Dr. Paulino 3. f/u 1 week Plan Of Treatment No Information History and Physical Notes * HPI (History of Present Illness) Category Sub-Category Detail Notes Category Not es Provider Note history of PAd s/p vascular procedure now 2-3 months of ulceratyion on his left 1st toe Examination Category Sub-Category Detail Notes Category Not [...] Pedro Pablo MCGRAW HDOB:07/1940 (84 yo M)Acc No.[id number]:01/31/2025 Progress Notes Patient: Pedro Pablo Charles Provider: Denise Rubio APRN :1940 A ge:84 Y S ex:Male Date:01/31/2025 Address:[facility] [address] [id number] Pcp:Fran Monroe DO Subjective: * Chief Complaints: * [id number] 1 week f/u - Left Toe Ulcer * HPI: P rovider Note: history of PAd s/p vascular procedure now 2-3 months of ulceratyion on his left 1st toe. Objective: * Examination: G eneral Examination: GENERAL APPEARANCE: [...] patient history he had an MRI at [facility] that revealed bone infection - check lab - place PICC and begin IV antibiotics 2. antibiotics: begin dapto, and fortaz 3. PAd - ; angioplasty - refer back to Dr. Paulino 3. f/u 1 week Billing Information: * Procedure Codes: Care Plan Details* * Electronic signature of Jhony Rubio APRN on 02/06/2025 at 03:31 PM SACK MAKER Sign off status: Pending * Provider: Denise Rubio APRN Date: 04/03/2024 Generated for Felice lozano/Davian/Megan on: 03:31 PM SACK MAKER
[2025-02-06 15:23] VITALS: BP 160/94; PULSE 80; TEMP 36.4; O2SAT 96
--- NOTE | 2025-02-06 15:28 | XRR_ITS ---
PROCEDURE INFORMATION: Exam: XR Left Foot Exam date and time: 02/06/2025 5:36 PM Age: 84 years old Clinical indication: Other: Lt big toe ulcer; Additional info: Eschar, color change to big toe TECHNIQUE: Imaging protocol: Radiologic exam of the left foot. Views: 3 or more views. COMPARISON: MR foot LT wo/w con [id number] 01/23/2025 10:42 AM FINDINGS: Bones/joints: There are no findings present to suggest fracture or dislocation. There is no aggressive bony destruction to suggest aggressive bony remodeling or destruction. Note however that there is a deep soft tissue ulceration that might be exposing or extending through the distal aspect of the the phalanx left 1st toe, in such scenario osteomyelitis may be difficult to exclude. Soft tissues: See Bones/joints finding. XR/XR foot LT min 3V* [id number] IMPRESSION: Findings of deep ulceration distal 1st toe extending to the bony margin distal aspect distal phalanx osteomyelitis difficult to exclude if there is exposure of the bony margin for evaluation recommended no obvious aggressive bony destruction or osteolysis.
--- OUTSIDE RECORDS SUMMARY | 2025-02-06 15:31 | XMS_ITS | Patient Health Record ---
Author Organization [facility] Address [address] [place] [address] [place] [address] Care Team Providers Care Application Specialist Name Role Phone Monroe Kishor TOVARk Primary Care Provider Unavail able Stuart Paulino Unavailable [phone] Pia Bryan Unavailable [phone] Mushtaq Barahona JR Unavailable [phone] Shaunna Rubio Unavailable [phone] Gallito Infante Unavailable [phone] Amy Carboen Unavailable [phone] Rocael Nevarez Unavailable [phone] Allergies No Known Allergies Results Component Value Reference Range Flag Notes US Ankle Brachial Pressure I ndex-14678 Reviewed date:01/23/2025 09:50:37 AM Interpretation: Performing Lab: Notes/Report: vqw=[id number]&org=iSite gtu=[id number]&org=iSite US Ankle Brachial Pressure I ndex-76747 Reviewed date:01/10/2025 09:42:39 AM Interpretation: Performing Lab: Notes/Report: This report was dictated at the [facility] FINAL REPORT Read This report was dictated at the [facility] Comprehensive Metabolic Pane l (CMP) 23454 Reviewed date:01/30/2025 08:15:22 AM Interpretation: Performing Lab: Notes/Report: Diagnosis Description: Osteomyelitis, unspecified Glucose Serum 238 71-110 MG/DL HI Testing p erformed at [facility], [address] [place] [address] [place] [address]. CLIA ID#: [id number] BUN 28 7-21 MG/DL HI Creat 1.21 .57-1.17 MG/DL HI C-fyykao-a-benzoquinon e imine (NAPQI) is a metabolite of acetaminophen, [...] the potential for falsely depressed results. GFR 58.1 NA Calculation pe rformed from GFR calculator provided by the [employer]. Glomerular Filtration rate(GRF) is the best overall index of kidney function. Normal GFR varies according to age,sex, body size, and declines with age. The National Kidney Foundation recommends using the CKD-EPI Creatinine Equation(2020) to estimate GFR. BUN/Creat Ratio 23.1 12.0-20.0 % HI Total Protein 6.7 5.8-8.0 G/DL Albumin 4.2 3.2-4.8 G/DL Globulin 2.6 2.3-3.5 G/DL Alb/Glob 1.6 0.8-2.2 Calcium 9.6 8.7-10.4 MG/DL Sodium 139 136-145 MMOL/L Potassium 5.0 3.5-5.1 MMOL/L Chloride 101 98-107 MMOL/L CO2 27.4 20.0-31.0 MMOL/L Anion Gap 16 5-15 HI Alk Phos 115 46-116 Bili Total .4 .3-1.2 MG/DL Use of this assay is not recommended for patients undergoing treatment with eltrombopag due to the potential for falsely elevated results. AST/SGOT 18 15-37 UNIT/L ALT/SGPT 23 12-78 UNIT/L Osmo Serum,Calculated 301 280-300 MOSM/KG HI Schedule Confirmation Reviewed date:01/30/2025 07:59:49 AM Interpretation: Performing Lab: Notes/Report: CRP [id number] Reviewed date:01/30/2025 08:15:22 AM Interpretation: Performing Lab: Notes/Report: Diagnosis Description: Osteomyelitis, unspecified CRP <.50 .40-1.00 MG/DL CBC w\ Auto Diff 84371 Reviewed date:01/30/2025 08:15:22 AM Interpretation: Performing Lab: Notes/Report: Diagnosis Description: Osteomyelitis, unspecified WBC 11.2 4.5-11.0 X10'3 HI RBC 4.90 4.50-5.90 X10'6 Hgb 13.6 13.5-17.5 G/DL Hct 45.1 41.0-53.0 % MCV 92.0 80.0-100.0 FL MCH 27.8 27.0-31.0 PG MCHC 30.2 31.0-37.0 G/DL LOW Platelet 349 150-400 X10'3 RDW-SD 47.2 35.0-49.0 FL RDW-CV 14.0 12.2-15.6 % MPV 11.1 9.2-12.0 FL Neutro Auto% 70.5 40.0-70.0 % HI Lymph Auto% 18.3 22.0-44.0 % LOW [place] Auto% 8.5 3.0-7.0 % HI Eos Auto% 2.1 2.0-4.0 % Baso Auto% 0.2 0.0-1.0 % Imm Gran% .4 .0-.4 % Neutro Abs 7.90 .80-7.70 HI Absolute Neutrophil Count 7900 NA Lymph Abs 2.05 .10-4.10 [place] Abs .95 .20-1.00 Eos Abs .23 .00-.40 Baso Abs .02 .00-.20 Imm Gran Abs .05 .00-.10 NRBC# .00 .00-.20 NRBC% .00 .00-.20 /100 intact WBC's CRP 01083 (Not yet reviewed by provider) Interpretation: Performing Lab: Notes/Report: Diagnosis Description: Osteomyelitis, unspecified CRP <.50 .40-1.00 MG/DL Comprehensive Metabolic Pane l (CMP) 21397 (Not yet reviewed by provider) Interpretation: Performing Lab: Notes/Report: Diagnosis Description: Osteomyelitis, unspecified Glucose Serum 242 71-110 MG/DL HI Testing p erformed at [facility], [address] [place] [address] [place] [address]. CLIA ID#: [id number] BUN 27 7-21 MG/DL HI Creat 1.14 .57-1.17 MG/DL C-zazvce-w-benzoquinon e imine (NAPQI) is a metabolite of acetaminophen, [...] Kidney Foundation recommends using the CKD-EPI Creatinine Equation(2020) to estimate GFR. BUN/Creat Ratio 23.7 12.0-20.0 [...] UNIT/L Osmo Serum,Calculated 309 280-300 MOSM/KG HI CBC w\ Auto Diff 57712 (Not yet reviewed by provider) Interpretation: Performing [...] % Lymph Auto% 21.2 22.0-44.0 % LOW [place] Auto% 8.0 3.0-7.0 % HI Eos Auto% 2.5 2.0-4.0 % Baso Auto% 0.2 0.0-1.0 % Imm Gran% .2 .0-.4 % Neutro Abs 5.53 .80-7.70 Absolute Neutrophil Count 5530 NA Lymph Abs 1.73 .10-4.10 [place] Abs .65 .20-1.00 Eos Abs .20 .00-.40 Baso Abs .02 .00-.20 Imm Gran Abs .02 .00-.10 NRBC# .00 .00-.20 NRBC% .00 .00-.20 /100 intact WBC's Reason For Referral Reason Left Toe Osteomyelit is 01/26 Diagnosis 1 Osteomyelitis (M86.9 ) Referring Provider First Name Tanner Referring Provider Last Name Cristhian Muñoz Referring Provider Speciality Podiatry Referred Organization [facility] Referred Provider Mushtaq Barahona Referred Address [address] [place] [phone], Referred Provider Specialty Infectious D isease General Notes Saud Brown 01/25 04:17:17 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 Referral Priority Routine Medications Medication SIG (Take, Route, Frequency, Duration) Notes Start Date End Date Status Insulin Aspart 50 units Activ e Trulicity Active Jardiance 10 MG Tablet 1 tablet Orally O nce a day Active Linezolid 600 MG Tablet 1 tablet Orally every 12 hrs; Duration: 14 days 01/30/2025 02/13/2025 Active Valsartan 160 MG Tablet 1 tablet Orally Once a day Active Cipro 500 MG Tablet 1 tablet Orally ever y 12 hrs; Duration: 14 days 01/30/2025 02/27/2025 Active Atorvastatin Calcium 40 MG Tablet 1 tablet Orally Once a day Active Aspirin 81 MG Tablet Delayed Release 1 tablet Orally Once a day Active Clopidogrel Bisulfate 75 MG Tablet 1 tablet Orally Once a day; Duration: 90 days 08/20/2023 Active Carvedilol 6.25 MG Tablet 1 tablet with food Orally Twice a day Active Social History Tobacco Use: [...] atherosclerosis of artery of lower limb (disorder) (020411920) Atherosclerosis of pic[place] arteries of left leg with ulceration of other part of foot (I70.245) Active confirmed Problem Chronic occlusion of artery of extremity (362160691) 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) Active confirmed Problem Peripheral vascular disease (816445509) Peripheral vascular disease, unspecified (I73.9) Active confirmed Problem S/P angioplasty with stent (Z95.820) Active confirmed Problem Peripheral vascular disease (123015673) Peripheral vascular disease (I73.9) Active confirmed Problem Diabetic peripheral neuropathy associated with type 2 diabetes mellitus (3623921340278) Type 2 diabetes mellitus with diabetic neuropathy, unspecified whether usp insulin use (E11.40) Active confirmed Problem Traumatic AND/OR non-traumatic injury (220254675) Nonhealing nonsurgical wound (T14.8XXA) Active confirmed Problem Osteomyelitis (86207756) Osteomyelitis (M86.9) Active confirmed Problem Intermittent claudication of bilateral lower limbs co-occurrent and due to atherosclerosis (finding) (13619920030415381 ) Atheroscler of pic[place]une artery of both legs with intermit claudication (I70.213) Active confirmed Problem Non-healing ulce r of left foot, unspecified ulcer stage (L97.529) Active confirmed Problem Pain at rest of left lower limb due to atherosclerosis (disorder) (32548415861478496 ) Atherosclerosis of [place] artery of left lower extremity with rest pain (I70.222) Active confirmed Vital Signs Heart Rate 78 /min 01/30/2025 Temperature 97.5 degrees Fahrenheit 01/30/2025 Respiratory Rate 18 /min 01/26/2025 Blood pressure diastolic 88 mm Hg 01/30/2025 Oximetry 95 % 01/30/2025 Height-cm 185.42 cm 01/30/2025 Weight-kg 86.5 kg 01/30/2025 Height 73 in 01/30/2025 Blood pressure systolic 158 mm Hg 01/30/2025 Weight 190.7 lbs 01/30/2025 BMI 25.16 kg/m2 01/30/2025 Encounters Encounter Location Date Provider Diagnosis [facility] [address] [place] [address] 01/09/2025 Rocael Nevarez S/P angioplasty with stent Z95.820 ; Peripheral vascular disease I73.9 ; Atherosclerosis of pic[place] artery of left lower extremity with rest pain I70.222 and Nonhealing nonsurgical wound T14.8XXA [facility] [address] [place] [address] 06/22/2024 Pia Bryan S/P angioplasty with stent Z95.820 ; Peripheral vascular disease I73.9 and Atheroscler of picayune artery of both legs with intermit claudication I70.213 [facility] [address] [place] [address] [place] [address] 01/30/2025 Mushtaq [place] Osteomyelitis M86.9 [facility] [address] [place] [address] 01/09/2025 Stuart Paulino [facility] [address] [place] [address] 06/22/2024 Gallito Infante [facility] [address] [place] [address] 01/10/2025 Stuart Paulino Atherosclerosis of picayune artery of left lower extremity with rest pain I70.222 [facility] [address] [place] [address] 07/05/2024 Stuart Paulino Atheroscler of nativ e artery of both legs with intermit claudication I70.213 [facility] [address] [place] [address] [place] [address] 01/26/2025 Mushtaq Barahona Osteomyelitis M86.9 [facility] [address] [place] [address] 01/18/2025 Stuart Paulino Assessments Encounter Date Diagnosis (ICD Code) Assessment Notes Treatment Notes Treatment Clinical Notes Section Notes 06/22/2024 S/P angioplasty with stent (ICD-10 - Z95.820) Follow-up in 6 months with ABIs in the clinic or sooner if needed. 01/10/2025 Atherosclerosis of picay[place] artery of left lower extremity with rest pain (ICD-10 - I70.222) PEG with waveform Right 0.80 with monophasic waveforms Left 0.53 with dampened monophasic waveform Findings are consistent with moderate to severe atherosclerosis bilateral lower extremities with the left side being worse than the right. 01/26/2025 Osteomyelitis (ICD-10 - M86.9) 1. 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 - by patient history he had an MRI at [place] that revealed bone infection - check lab - place PICC and begin IV antibiotics 2. antibiotics: begin dapto, and fortaz 3. PAd ; angioplasty - refer back to Dr. Paulino 3. f/u 1 week 01/30/2025 Osteomyelitis (ICD-10 - M86.9) 1. 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 - by patient history he had an MRI at [place] that revealed bone infection - check lab - place PICC and begin IV antibiotics 2. 01-30-25 antibiotics: [employer] has denied PICC, and IV antibiotics, we are appealing this decision. GAP EXTENSION FORM/PA FOR PICC PLACEMENT HAS BEEN INITIATED. CASE# [id number] - begin zyvox, and cipro 01-30-25 3. PAd ; angioplasty - refer back to Dr. Paulino 4. 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 f/u 1 week 01/09/2025 S/P angioplasty with stent (ICD-10 - Z95.820) 01/09/2025 Peripheral vascular disease (ICD-10 - I73.9) 84-year-old male seen today for a 6-month follow-up peripheral vascular disease and is complaining of nonhealing wound on his left great toe as well as mild rest pain. ABIs continue to be decreased with weak monophasic signals to left [employer]. Patient is seeing Dr. Baez podiatry and has a planned MRI of his left lower extremity to evaluate for osteomyelitis. Will go ahead and get a CTA Afro and have the patient follow-up with Dr. Paulino for possible intervention to try to help salvage the nonhealing wound on his left great toe. Patient was educated on signs and symptoms of lower limb ischemia such as blue-black discoloration, loss of function, blanching, cold extremities, or pain not relieved with rest and to go to the ER immediately. Patient denies all these and verbalized understanding. Continue his clopidogrel and aspirin. 07/05/2024 Atheroscler of pic[place]une artery of both legs with intermit claudication (ICD-10 - I70.213) PEG with waveforms: Right 0.82 with monophasic waveforms with brisk upstroke Left 0.61 with monophasic waveforms moderately dampened. Findings are consistent with moderate to severe atherosclerosis bilateral lower extremities with the left being worse than the right. 01/09/2025 Atherosclerosis of picayune artery of left lower extremity with rest pain (ICD-10 - I70.222) 06/22/2024 Peripheral vascular disease (ICD-10 - I73.9) Patient was instructed to call us with any questions or concerns, particularly any worsening of condition, This includes pain, swelling, change in color or development of sores in lower extremities, particularly on the left. 06/22/2024 Atheroscler of picayune artery of both legs with intermit claudication (ICD-10 - I70.213) 01/09/2025 Nonhealing nonsurgical wound (ICD-10 - T14.8XXA) Plan Of Treatment Pending Test Test Name Order Date Blood Urea Nitrogen (BUN) 73863 01/10/20 25 CBC w\ Auto Diff 54672 01/30/2025 Comprehensive Metabolic Panel (CMP) 8005 3 01/30/2025 Creatinine (B) 28734 01/09/2025 CRP 68286 01/30/2025 CTA AFRO w/ + w/o Contrast-74501 025 US Ankle Brachial Pressure Index-10430 0 09/17/2023 Insurance Providers Payer Name Payer Address Payer Phone Subscriber Number Group Number Insured Name Patient Relationship to Insured Coverage Start Date Coverage End Date [employer] Medicare Advantage HMO - NOT IN NETWORK [address] [address] [place] [phone] [id number] Pedro Pablo Beltran Self - patient is the insured for Life SEC to Medicare [address] [place] [phone] [id number] Pedro Pablo Beltran Self - patient is the insured Medical (General) History Medical History History ICD Code Diabetes Type 2 Hyperlipidemia Surgical History Surgery Date(Month/Year) Double Bypass Hernia Surgery Endovascular treatment of L lower extrem ity 08.28.2023 Hospitalization History Reason Date(Month/Year) ER Visit - Fall/stitches
--- OUTSIDE RECORDS SUMMARY | 2025-02-06 15:32 | XMS_ITS | Patient Health Record ---
Author Organization [facility] Address [address], [place] [id number] Care Team Providers Care Cable Installation Technician Name Role Phone Fran Monroe DO Primary Care Provider Unavail Tanner Ortiz Jr [phone] Allergies No Known Allergies Reason For Referral [...] neuropathy associated with type 2 diabetes mellitus (1901394806996) Type 2 diabetes mellitus with diabetic neuropathy, unspecified whether half-way insulin use (E11.40) Active confirmed Problem Pressure injury of toe of left foot (990900787872719) Pressure injury of skin of left foot, unspecified injury stage (L89.899) Active confirmed Problem Peripheral vascular disease (767097201) PVD (peripheral vascular disease) (I73.9) Active confirmed Problem Pressure injury of skin of toe of left foot, unspecified injury stage (L89.899) Active confirmed Problem Osteomyelitis (24284150) 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) Active confirmed Vital Signs Respiratory Rate 22 /min 01/25/2025 Height 73 in 01/25/2025 Weight 169 lbs 01/25/2025 BMI 22.29 kg/m2 01/25/2025 Encounters Encounter Location Date Provider Diagnosis [facility] [address] [facility], [place] [id number] 01/25/2025 Tanner Morrow Jr Type 2 diabetes mellitus with diabetic neuropathy, unspecified whether long term care pharmacist insulin use E11.40 ; Corns/callosities L84 ; Tinea unguium B35.1 ; Pain in left toe(s) M79.675 ; Pain in right toe(s) M79.674 ; Pressure injury of skin of toe of left foot, unspecified injury stage L89.899 ; Toe osteomyelitis M86.9 and PVD (peripheral vascular disease) I73.9 [facility] [address] [place] [address], [place] [id number] 02/06/2025 Tanner Morrow Jr Type 2 diabetes mellitus with diabetic neuropathy, unspecified whether half-way insulin use E11.40 ; Corns/callosities L84 ; Tinea unguium B35.1 ; Pain in left toe(s) M79.675 ; Pain in right toe(s) M79.674 ; Pressure injury of skin of toe of left foot, unspecified injury stage L89.899 ; Toe osteomyelitis M86.9 and PVD (peripheral vascular disease) I73.9 [facility] [address] [place] [address], [place] [id number] 03/02/2024 Tanner Morrow Jr Type 2 diabetes mellitus with diabetic neuropathy, unspecified whether long term care pharmacist insulin use E11.40 ; Corns/callosities L84 ; Tinea unguium B35.1 ; Pain in left toe(s) M79.675 and Pain in right toe(s) M79.674 [facility] [address] [place] [address], [place] [id number] 05/11/2024 Tanner Morrow Jr Type 2 diabetes mellitus with diabetic neuropathy, unspecified whether half-way insulin use E11.40 ; Corns/callosities L84 ; Tinea unguium B35.1 ; Pain in left toe(s) M79.675 and Pain in right toe(s) M79.674 [facility] [address] [place] [address], [place] [id number] 08/04/2024 Tanner Morrow Jr Type 2 diabetes mellitus with diabetic neuropathy, unspecified whether long term care pharmacist insulin use E11.40 ; Corns/callosities L84 ; Tinea unguium B35.1 ; Pain in left toe(s) M79.675 and Pain in right toe(s) M79.674 [facility] [address] [place] [address], [place] [id number] 10/19/2024 Tanner Morrow Jr Type 2 diabetes mellitus with diabetic neuropathy, unspecified whether half-way insulin use E11.40 ; Corns/callosities L84 ; Tinea unguium B35.1 ; Pain in left toe(s) M79.675 and Pain in right toe(s) M79.674 [facility] [address] [place] [address], [place] [id number] 12/28/2024 Tanner Morrow Jr Type 2 diabetes mellitus with diabetic neuropathy, unspecified whether long term care pharmacist insulin use E11.40 ; Corns/callosities L84 ; Tinea unguium B35.1 ; Pain in left toe(s) M79.675 ; Pain in right toe(s) M79.674 ; Pressure injury of skin of toe of left foot, unspecified injury stage L89.899 and Toe osteomyelitis M86.9 [facility] [address] [place] [address], [place] [id number] 01/11/2025 Tanner Morrow Jr Type 2 diabetes mellitus with diabetic neuropathy, unspecified whether long term care pharmacist insulin use E11.40 ; Corns/callosities L84 ; Tinea unguium B35.1 ; Pain in left toe(s) M79.675 ; Pain in right toe(s) M79.674 ; Pressure injury of skin of toe of left foot, unspecified injury stage L89.899 ; Toe osteomyelitis M86.9 and PVD (peripheral vascular disease) I73.9 Assessments Encounter Date Diagnosis (ICD Code) Assessment Notes Treatment Notes Treatment Clinical Notes Section Notes 03/02/2024 Type 2 diabetes mellitus with diabetic neuropathy, unspecified whether long term care pharmacist insulin use (ICD-10 - E11.40) 03/02/2024 Corns/callosities (ICD-10 - L84) 05/11/2024 Type 2 diabetes mellitus with diabetic neuropathy, unspecified whether long term care pharmacist insulin use (ICD-10 - E11.40) 05/11/2024 Corns/callosities (ICD-10 - L84) 08/04/2024 Type 2 diabetes mellitus with diabetic neuropathy, unspecified whether half-way insulin use (ICD-10 - E11.40) 08/04/2024 Corns/callosities (ICD-10 - L84) Paring of 2 lesions performed on both feet with a #15 blade. Again discussed padding and offloading and DM shoes and inserts. 10/19/2024 Type 2 diabetes mellitus with diabetic neuropathy, unspecified whether half-way insulin use (ICD-10 - E11.40) 10/19/2024 Corns/callosities (ICD-10 - L84) Paring of 4 lesions performed with a #15 blade. Again discussed padding and offloading and DM shoes and inserts. 12/28/2024 Type 2 diabetes mellitus with diabetic neuropathy, unspecified whether long term care pharmacist insulin use (ICD-10 - E11.40) Discussed treatment of neuropathy, including topical and oral medications and laser therapy. Recommended vitamin B complex supplements. 12/28/2024 Corns/callosities (ICD-10 - L84) 01/11/2025 Type 2 diabetes mellitus with diabetic neuropathy, unspecified whether half-way insulin use (ICD-10 - E11.40) 01/11/2025 Corns/callosities (ICD-10 - L84) 01/25/2025 Type 2 diabetes mellitus with diabetic neuropathy, unspecified whether long term care pharmacist insulin use (ICD-10 - E11.40) 01/25/2025 Corns/callosities (ICD-10 - L84) 02/06/2025 Type 2 diabetes mellitus with diabetic neuropathy, unspecified whether long term care pharmacist insulin use (ICD-10 - E11.40) 02/06/2025 Corns/callosities (ICD-10 - L84) 02/06/2025 Tinea unguium (ICD-10 - B35.1) 01/25/2025 Tinea unguium (ICD-10 - B35.1) 01/11/2025 Tinea unguium (ICD-10 - B35.1) 12/28/2024 Tinea unguium (ICD-10 - B35.1) Discussed diabetic foot care, routine foot care, and half-way blood sugar control. Debridement of nails 1 through 5 bilateral down 2mm as close to normal thickness as possible using mechanical and manual means. Again advised the patient on preventative care. Patient to apply topical antifungals to the nails. 10/19/2024 Tinea unguium (ICD-10 - B35.1) Discussed diabetic foot care, routine foot care, and half-way blood sugar control. Debridement of nails 1 through 5 bilateral down 2mm as close to normal thickness as possible using mechanical and manual means. Again advised the patient on preventative care. Patient to apply topical antifungals to the nails. 08/04/2024 Tinea unguium (ICD-10 - B35.1) Discussed diabetic foot care, routine foot care, and long term care pharmacist blood sugar control. Debridement of nails 1 through 5 bilateral down 2mm as close to normal thickness as possible using mechanical and manual means. Again advised the patient on preventative care. Patient to apply topical antifungals to the nails. 05/11/2024 Tinea unguium (ICD-10 - B35.1) Discussed diabetic foot care, routine foot care, and half-way blood sugar control. Debridement of nails 1 [...] diabetic foot care, routine foot care, and half-way blood sugar control. Debridement of nails 1 [...] blood sugars in detail with the patient. 03/02/2024 Pain in left toe(s) (ICD-10 - M79.675) 05/11/2024 Pain in left toe(s) (ICD-10 - M79.675) 08/04/2024 Pain in left toe(s) (ICD-10 - M79.675) 10/19/2024 Pain in left toe(s) (ICD-10 - M79.675) 12/28/2024 Pain in left toe(s) (ICD-10 - M79.675) 01/11/2025 Pain in left toe(s) (ICD-10 - M79.675) 01/25/2025 Pain in left toe(s) (ICD-10 - M79.675) 02/06/2025 Pain in left toe(s) (ICD-10 - M79.675) 02/06/2025 Pain in right toe(s) (ICD-10 - M79.674) 01/11/2025 Pain in right toe(s) (ICD-10 - M79.674) 01/25/2025 Pain in right toe(s) (ICD-10 - M79.674) 08/04/2024 Pain in right toe(s) (ICD-10 - M79.674) 10/19/2024 Pain in right toe(s) (ICD-10 - M79.674) 12/28/2024 Pain in right toe(s) (ICD-10 - M79.674) 05/11/2024 Pain in right toe(s) (ICD-10 - M79.674) 03/02/2024 Pain in right toe(s) (ICD-10 - M79.674) 12/28/2024 Pressure injury of skin of toe of left foot, unspecified injury stage (ICD-10 - L89.899) Discussed treatment, risks and complications. Radiographs taken, evaluated and discussed with the patient. Using a 15 blade and sharp debridement, excisional debridement of ulcer to and including full thickness and subcutaneous tissue to good granular base with goals of pressure relief and infection control of the ulceration on the left great toe. Offloading bandage applied. Discussed continued padding and offloading in detail with the patient. Wound cultures taken today. Will schedule MRI of the left foot to assess for osteomyelitis. Rx for doxycycline. 01/11/2025 Pressure injury of skin of toe of [...] and offloading in detail with the patient. Will send Home Health to help with dressing changes. Patient also has an angiogram scheduled with vascular surgery 01/25/2025 Pressure injury of skin of toe [...] surgeon. Will refer patient to Dr. Barahona. 02/06/2025 Pressure injury of skin of toe of [...] and offloading in detail with the patient. Again recommended he see a vascular surgeon. Advised him to keep his appointment with Dr. Barahona. 02/06/2025 Toe osteomyelitis (ICD-10 - M86.9) 01/25/2025 Toe osteomyelitis (ICD-10 - M86.9) 01/11/2025 Toe osteomyelitis (ICD-10 - M86.9) 12/28/2024 Toe osteomyelitis (ICD-10 - M86.9) 01/25/2025 PVD (peripheral vascular disease) (ICD-10 - I73.9) 01/11/2025 PVD (peripheral vascular disease) (ICD-10 - I73.9) 02/06/2025 PVD (peripheral vascular disease) (ICD-10 - I73.9) Plan Of Treatment Next Appt Details Provider Name:Tanner Molina Jr, 02/21/2025 09:45:00 AM, [address] [place] [address], [phone], Provider Name:Tanner Molina Jr, 03/08/2025 08:15:00 AM, [address] [place] [address], [phone], Insurance Providers Payer Name Payer Address Payer Phone Subscriber Number Group Number Insured Name Patient Relationship to Insured Coverage Start Date Coverage End Date [facility] Medicare Complete [address] [address] [place] [phone] [id number] BESSY OWENS Self - patient is the insured 3 for Life Ins [address] [place] [address] [id number] BESSY OWENS Self - patient is the insured 3 Medical (General) History Medical History History ICD Code Back Pain DIABETIC Heart Attack High Cholesterol Numbness/Tingling in feet/toes shortness of breath Surgical History Surgery Date(Month/Year) hernia heart cath Hospitalization History Reason Date(Month/Year) 20 STITCHES IN HEAD DUE TO FALL 7.1.24
[2025-02-06 17:30] LABS: Hematocrit 41.4 % (37-53); Hemoglobin 13.00 g/dL (11.27-16.99); Mean Corpuscular HGB Conc 31.4 g/dL (30-55); Mean Corpuscular Hemoglobin 28.6 pg (27-33); Mean Corpuscular Volume 91.0 fl (82-101); Nucleated Red Blood Cells % 0 %; Platelet Count 252 10^3/cmm (157-399); Red Blood Count 4.55 10^6/uL (3.85-5.65); White Blood Count 9.47 10^3/uL (3.29-11.43)
--- NOTE | 2025-02-06 17:37 | USR_ITS ---
PROCEDURE INFORMATION: Exam: US Duplex Left Lower Extremity Arteries Or Arterial Bypass Grafts Exam date and time: 02/06/2025 6:14 PM Age: 84 years old Clinical indication: Other: Necrotic left great toe; Additional info: Necrotic toe; Assess vascular status; HX balloon TECHNIQUE: Imaging protocol: Left Real-time duplex scan of the arteries or arterial bypass grafts of the left lower extremity with 2-D finch scale, color Doppler flow and spectral waveform analysis. Images documented and saved. COMPARISON: MR foot LT wo/w con [id number] 01/23/2025 10:42 AM FINDINGS: Left common femoral artery: No occlusion or significant stenosis. Normal waveform. Left superficial femoral artery: No occlusion or significant stenosis. Poor flow, likely high-grade stenosis. Left popliteal artery: No occlusion or significant stenosis. Monophasic, possible tardus. Left calf/foot arteries: No occlusion or significant stenosis in the visualized arteries. Normal waveforms. Dorsalis pedis artery is patent. Monophasic, possible tardus. ABIs not obtained. Probable high-grade stenosis in the distal CERAMIC CHEMIST/proximal SFA. PSV in cm/sec as follows: External iliac: 85, 76 CERAMIC CHEMIST: 83 SFA: 19, 109, 32 Popliteal: 24 Post tib: 22 Peroneal: DANNA: Dorsalis pedis: 24 US/[place] [id number] IMPRESSION: Probable high-grade stenosis in the distal CERAMIC CHEMIST/proximal SFA.
--- NOTE | 2025-02-06 17:42 | W.ED.EXTPRO ---
HPI - Extremity Problem General: Chief complaint: Extremity Problem,Nontraumatic Stated complaint: big toe left foot turning black Time Seen by Provider: 02/06/25 17:22 Source: patient and family Mode of arrival: ambulatory Limitations: no limitations History of Present Illness: Patient is a 84-year-old male presents to ED today along with family for evaluation of a black toe . Patient and family states he has been dealing with left great toe necrosis over the past 3 months. He states over that time. He has been seeing specialists in [place] and through [place]. He has underwent a vascular procedure to restore blood flow to the left leg. He states he has had an MRI performed here at the hospital after it was ordered by his reception manager Dr. Morrow. Results of this MRI are as follows: MR/MR foot LT wo/w con [id number] IMPRESSION: 1. Focal osteomyelitis involving the entire distal phalanx of the first toe with surrounding cellulitis. 2. Cellulitis extends to involve the soft tissues of the entire first toe. 3. Mild hallux valgus deformity. 4. No soft tissue abscess. Patient states he also sees internal medicine/infectious disease in [place]. Based on the MRI report, they had recommended a PICC line for antibiotics and attempts to salvage the toe. Patient states he is having issues getting things approved by my insurance this was reportedly told to come to [facility] emergency department. He states he is supposed to get a CT scan so that they will pay for a PICC line ? Patient has no systemic symptoms including fever, chills, body aches. Vitals are stable upon arrival. MD Complaint: extremity pain Onset (ago): month(s) Pain Consistency: constant Location: left and toe Radiation: none Relieving factors: nothing Exacerbating factors: nothing Associated symptoms: Reports no associated symptoms Related Data Home Medications ?Medication ?Instructions ?Recorded ?Confirmed dulaglutide 1.5 mg/0.5 mL 1.5 mg SUBCUT Q7D 03/22/23 12/22/24 subcutaneous pen injector (Trulicity) insulin glargine 100 unit/mL (3 See Rx Instructions .Route .COMPLEX 03/22/23 12/22/24 mL) subcutaneous pen (Lantus Solostar U-100 Insulin) Previous Rx's ?Medication ?Instructions ?Recorded carvedilol 12.5 mg tablet 12.5 mg PO DIRECTED #315 tabs 08/02/24 spironolactone 25 mg tablet 25 mg PO DAILY #90 tabs 11/03/24 atorvastatin 40 mg tablet (Lipitor) 40 mg PO QPM #30 tabs 11/17/24 valsartan 160 mg tablet 160 mg PO DAILY #90 tabs 12/22/24 apixaban 5 mg tablet (Eliquis) 5 mg PO BID@0900,2100 #180 tabs 01/02/25 Allergies Allergy/AdvReac Type Severity Reaction Status Date / Time No Known Allergies Allergy Verified 02/06/25 15:29 PFSH ED PFSH: Medical History (Updated 02/06/25 @ 18:54 by ROOSEVELT Currie) Chronic venous insufficiency Peripheral arterial occlusive disease Type 2 diabetes mellitus Atelectasis, bilateral Myocardial infarction ASHD (arteriosclerotic heart disease) HTN (hypertension) Surgical History (Updated 11/15/24 @ 18:47 by Andi Hamlin MD) S/P hernia repair S/P CABG (coronary artery bypass graft) Family History Father Diabetes Other CAD (coronary artery disease) Social History (Updated 06/14/24 @ 14:32 by Radha Brown LPN) Smoking and tobacco/nicotine status: never used tobacco/nicotine Alcohol intake: never Substance/Drug Use: never Household members: spouse Marital status: Current occupational status: retired Physical Exam Extremity: OTHER: Course Consultations: Consultation #1: Dr. Zavala-graciously willing to see patient in office this week to discuss possible options Vital Signs: Vital signs: Vital Signs Temperature 97.5 F L 02/06/25 15:23 Pulse Rate 79 02/06/25 18:36 Blood Pressure 99/55 02/06/25 18:36 Pulse Oximetry 95 02/06/25 18:36 Oxygen Delivery Me thod Room Air 02/06/25 18:36 MDM - Extremity (Nontraumatic) Medical Decision Making Patient is an 84-year-old male here with known osteomyelitis involving the left great toe. Patient presents today with a dry gangrenous toe. Vital signs are stable. White count is normal. His lactic is normal. He has mild elevations to his ESR-14 and CRP-6. Creatinine today is close to baseline. Patient has underwent MRI imaging earlier this month. This was reviewed. We did have arterial ultrasound performed here in the emergency department showing monophasic flow down to the foot. Looks like he may have some chronic occlusion involving his SFA but had collateral flow distally. This was prelim report from [facility]. Patient/family was requesting a second opinion as they are currently following up with podiatry in [place]. Case discussed with Dr. Zavala who is graciously willing to see patient in clinic this week. Stated there was nothing that needed to be done emergently. Medical Records I reviewed the patient's medical records. Lab Data I reviewed the patient's lab results. 02/06/25 17:11 02/06/25 17:11 Radiology Impressions Foot X-Ray 02/06/25 15:28 IMPRESSION: Findings of deep ulceration distal 1st toe extending to the bony margin distal aspect distal phalanx osteomyelitis difficult to exclude if there is exposure of the bony margin for evaluation recommended no obvious aggressive bony destruction or osteolysis. Laboratory Results WBC 9.47 10^3/uL (3.29-11.43) 02/06/25 17:11 RBC 4.55 10^6/uL (3.85-5.65) 02/06/25 17:11 Hgb 13.00 g/dL (11.27-16.99) 02/06/25 17:11 Hct 41.4 % (37-53) 02/06/25 17:11 MCV 91.0 fl (82-101) 02/06/25 17:11 MCH 28.6 pg (27-33) 02/06/25 17:11 MCHC 31.4 g/dL (30-55) 02/06/25 17:11 RDW 13.7 % (12.1-15.1) 02/06/25 17:11 Plt Count 252 10^3/cmm (157-399) 02/06/25 17:11 MPV 10.6 fL (7.4-10.4) H 02/06/25 17:11 Neut % (Auto) 73.8 % 02/06/25 17:11 Lymph % (Auto) 17.1 % 02/06/25 17:11 [place] % (Auto) 5.7 % 02/06/25 17:11 Eos % (Auto) 2.9 % 02/06/25 17:11 Baso % (Auto) 0.2 % 02/06/25 17:11 Neut # (Auto) 6.99 10^3/uL (1.8-7.7) 02/06/25 17:11 Lymph # (Auto) 1.6 10^3/uL (0.8-4.8) 02/06/25 17:11 [place] # (Auto) 0.5 10^3/uL (0.2-0.9) 02/06/25 17:11 Eos # (Auto) 0.3 10^3/uL (0.0-0.8) 02/06/25 17:11 Baso # (Auto) 0.0 10^3/uL (0.0-0.1) 02/06/25 17:11 Nucleated RBC % (auto) 0 % 02/06/25 17:11 Nucleated RBCs # 0.0 /100WBC 02/06/25 17:11 ESR 14 mm/hr (0-10) H 02/06/25 17:11 Sodium 141 mmol/L (136-145) 02/06/25 17:11 Potassium 4.3 mmol/L (3.5-5.1) 02/06/25 17:11 Chloride 103 mmol/L (98-107) 02/06/25 17:11 Carbon Dioxide 27 mmol/L (22-29) 02/06/25 17:11 Anion Gap 15.3 (5-19) 02/06/25 17:11 BUN 29 mg/dL (8-23) H 02/06/25 17:11 Creatinine 1.5 mg/dL (0.7-1.2) H 02/06/25 17:11 GFR Calculation Not Reportable 02/06/25 17:11 Glucose 300 mg/dL (65-115) H 02/06/25 17:11 Calculated Osmolality 309 mOsm/kg (285-295) H 02/06/25 17:11 Lactic Acid 2.2 mmol/L (0.5-2.2) 02/06/25 17:11 Calcium 9.4 mg/dL (8.5-10.5) 02/06/25 17:11 Total Bilirubin 0.3 mg/dL (0.15-1.2) 02/06/25 17:11 AST 17 U/L (0-40) 02/06/25 17:11 ALT 25 U/L (0-41) 02/06/25 17:11 Alkaline Phosphatase 104 U/L (40-130) 02/06/25 17:11 C-Reactive Protein 6.0 mg/L (0.0-4.9) H 02/06/25 17:11 Total Protein 7.1 g/dL (6.6-8.7) 02/06/25 17:11 Albumin 3.9 g/dL (3.5-5.2) 02/06/25 17:11 Globulin 3.2 g/dL (1.3-4.6) 02/06/25 17:11 All radiology interpretation(s) finalized by discharge Discharge Plan Discharge Patient Disposition: Home Clinical Impression: Dry gangrene, Osteomyelitis of great toe of left foot Condition: Stable Prescriptions: No Action valsartan 160 mg tablet 160 mg PO DAILY Qty: 90 3RF carvedilol 12.5 mg tablet 12.5 mg PO DIRECTED Qty: 315 3RF Rx Instructions: Take 25mg (2 tabs) in the AM and 18.75mg (1.5 tabs) in the PM. spironolactone 25 mg tablet 25 mg PO DAILY Qty: 90 3RF Eliquis 5 mg tablet 5 mg PO BID@0900,2100 Qty: 180 3RF insulin glargine [Lantus Solostar U-100 Insulin] 100 unit/mL (3 mL) insulin pen See Rx Instructions .ROUTE .COMPLEX Rx Instructions: Inject 50 units subcutaneously in the am. Trulicity 1.5 mg/0.5 mL Pen Injector 1.5 mg SUBCUT Q7D Rx Instructions: atorvastatin [Lipitor] 40 mg tablet 40 mg PO QPM Qty: 30 0RF Discharge Orders: Discharge ED (Routine); Ordered 02/06/25 Ordered By: Sara Velasquez Referrals: Fran Monroe DO [Primary Care Provider, Family Practice] Patient Instructions: Patient Portal & Jerilyn Instructions Activity Restrictions/Additional Instructions: As we discussed, Dr. Zavala is willing to see you in clinic this week to go over potential options. Case management should reach out to you soon to help set you up with this follow-up appointment. Print Language: Azerbaijani Coding Level of Care Code ED Ice Rink Attendant for Man Freire
[2025-02-06 17:46] LABS: Lactic Sepsis W/Reflex 2.2 mmol/L (0.5-2.2)
[2025-02-06 17:48] LABS: Alanine Aminotransferase 25 U/L (0-41); Albumin Level 3.9 g/dL (3.5-5.2); Alkaline Phosphatase 104 U/L (40-130); Anion Gap 15.3 (5-19); Aspartate Amino Transferase 17 U/L (0-40); Blood Urea Nitrogen 29 mg/dL (8-23); Calcium 9.4 mg/dL (8.5-10.5); Carbon Dioxide 27 mmol/L (22-29); Chloride 103 mmol/L (98-107); Globulin 3.2 g/dL (1.3-4.6); Glucose 300 mg/dL (65-115); Osmolality Calculated 309 mOsm/kg (285-295); Potassium 4.3 mmol/L (3.5-5.1); Sodium 141 mmol/L (136-145); Total Protein 7.1 g/dL (6.6-8.7)
[2025-02-06 18:36] VITALS: BP 99/55; PULSE 79; O2SAT 95
[2025-02-06 19:14] LABS: Reflex Lactate Order REFLEX LACTIC ORDERD
[2025-02-06 19:37] VITALS: BP 168/89; PULSE 86; RESP 17; O2SAT 97
== END 2025-02-06 19:38 | disposition home or self-care (01) ==
PROVIDERS: Emergency Provider Physician Assistant; PCP Electrodiagnostic Medicine
DX: M86.8X7 Other osteomyelitis, ankle and foot (principal); E11.52 Type 2 diabetes mellitus with diabetic peripheral angiopathy with gangrene; I96 Gangrene, not elsewhere classified; Z79.01 Long term (current) use of anticoagulants; Z79.4 Long term (current) use of insulin; Z79.85 Long-term (current) use of injectable non-insulin antidiabetic drugs; I10 Essential (primary) hypertension
CPT/HCPCS: 36415; 73630; 80053; 83605; 85025; 85651; 86140; 93926; 99284